=== PATIENT | female | born 1940 | race Caucasian/White ===

== ENCOUNTER 2021-02-25 08:56 | Outpatient (CLI) | payer MEDICARE, OTHER, SELFPAY ==
--- NOTE | ~2021-02-25 | MR_ITS ---
EXAMINATION: MR foot LT wo con DATE: 02/25/2021 10:17 INDICATION: Osteomyelitis of left great toe. TECHNIQUE: Magnetic resonance imaging (MRI) of the left foot was performed without intravenous contra st. Sequences included long axis, short axis, and sagittal T2-weighted FS FSE and T1-weighted FSE. COMPARISON: Left foot radiographs 02/12/2017 FINDINGS: There is mild hallux valgus. No fracture. There is bone marrow edema involving the distal h kana of first distal phalanx, consistent with osteomyelitis. There is an overlying soft tissue defect. There is moderate osteoarthritis of first metatarsophalangeal joint and mild osteoarthritis of some the interphalangeal joints and midfoot joints. There is diffuse severe fatty atrophy of the musculatu re. The tendons are unremarkable. Lisfranc ligament is normal. IMPRESSION: 1. Osteomyelitis involving the distal half of first distal phalanx. Reviewed, dictated and finalized at location A.
== END 2021-02-25 08:57 | disposition home or self-care (01) ==
LOC: ANHIMG 09:06
PROVIDERS: Visit Provider Podiatrist Foot & Ankle Surgery
DX: M86.172 Other acute osteomyelitis, left ankle and foot (principal)
CPT/HCPCS: 73718

== ENCOUNTER 2021-04-02 08:12 | Outpatient (RCR) | payer MEDICARE, OTHER, SELFPAY ==
[2021-04-02 09:34] VITALS: BMI 29.5
== END 2021-06-22 17:09 | disposition home or self-care (01) ==
LOC: ANHWOC 08:12
PROVIDERS: Visit Provider Podiatrist Foot & Ankle Surgery
DX: E11.621 Type 2 diabetes mellitus with foot ulcer (principal); L97.529 Non-pressure chronic ulcer of other part of left foot with unspecified severity; L97.518 Non-pressure chronic ulcer of other part of right foot with other specified severity
CPT/HCPCS: 99213; G0463

== ENCOUNTER 2021-04-23 18:37 | Inpatient (IN) | payer MEDICARE, OTHER, SELFPAY ==
[2021-04-23] VITALS (20 sets, daily range): BP systolic 111–135; BP diastolic 44–56; PULSE 61–92; RESP 14–33; TEMP 37.4; O2SAT 91–96
--- NOTE | ~2021-04-23 | CT_ITS ---
EXAMINATION: CTA chest PE protocol DATE: 04/23/2021 22:19 INDICATION: Shortness of breath. Chest pain. TECHNIQUE: Computed tomography angiography (CTA) of the chest was performed with 100 mL Omnipaque-350 intravenous contrast timed to evaluate the pulmonary arteries. Coronal maximum intensity projection 3D-reconstructions were created by the technologist. Automated exposure control and iterative reconst ruction technique were employed. The dose-length product was 376.95 mGy-cm. COMPARISON: Chest single view 04/23/2021 FINDINGS: There is moderate emphysema. There are airspace and groundglass opacities in all lobes with a peripheral predominance. No pleural effusion. Cardiomegaly is noted. There are coronary artery adria cifications. No pericardial effusion. There is no pulmonary embolus. There is a small sliding hiatal hernia. There is a 6 mm stone in left kidney. There is severe thoracic and lumbar spondylosis. IMPRESSION: 1. No pulmonary embolus. Sensitivity is moderately decreased by motion artifact. 2. Diffuse lung disease, consistent with COVID-19 pneumonia. 3. Moderate emphysema. Reviewed, dictated and finalized at location A. IMPRESSION: 1. No pulmonary embolus. Sensitivity is moderately decreased by motion artifact . 2. Diffuse lung disease, consistent with COVID-19 pneumonia. 3. Moderate emphysema.
--- NOTE | ~2021-04-23 | XR_ITS ---
XR chest 1V portable 05/03/2021 13:03 Indication: Dyspnea Procedure: AP portable chest Comparison: Comparison to multiple prior studies sequentially, with oldest reviewed study dated 09/2020. Findings: There is extensive consolidation peripherally in both lungs which is slightly increased com pared with prior studies, consistent with pneumonia. Heart size normal. No pleural effusion or pneumo thorax. No acute osseous abnormality. There is advanced osteoarthritis of the left glenohumeral joint . Impression: 1: Progression of extensive bilateral airspace disease, compatible with pneumonia. Reviewed, dictated and finalized at location A. Impression: 1: Progression of extensive bilateral airspace disease, compatible with pneumon ia.
--- NOTE | ~2021-04-23 | XR_ITS ---
EXAMINATION: XR chest 1V portable DATE: 04/28/2021 05:47 INDICATION: COVID-19 pneumonia. TECHNIQUE: A single frontal view of the chest was obtained. COMPARISON: Chest 1 view 04/25/2021, chest CT 04/23/2021 FINDINGS: There are lucencies in the lungs, consistent with emphysema. There are mild airspace opacit ies in all lung zones bilaterally with a peripheral predominance. No pleural effusion or pneumothorax . The heart size is normal. IMPRESSION: 1. Stable diffuse lung disease, consistent with COVID-19 pneumonia. 2. Emphysema. Reviewed, dictated and finalized at location A.
--- NOTE | ~2021-04-23 | CT_ITS ---
EXAMINATION: CT brain wo con EXAM DATE: 04/29/2021 10:33 INDICATION: Altered mental status . COVID. Elevated d-dimer. TECHNIQUE: Spiral CT of the head was performed without contrast. Axial, coronal and sagittal images were reviewed. The dose-length product (DLP) for this examination was 1210.67 mGy-cm. The exposure was tailored according to patient size, and iterative reconstruction (ASIR) was used as additional do se reduction technique. There is no prior study for comparison. FINDINGS: Study is limited due to patient motion. Patient was scanned twice. There is no acute intrap arenchymal hemorrhage. No evidence of intraparenchymal brain mass lesion. No evidence of acute infa rction. Please note that initial head CT has limited sensitivity for small or acute infarctions. The re is moderate periventricular and subcortical hypodensity, nonspecific but probably related to small vessel ischemic disease. There is moderate prominence of the sulci and ventricles related to cereb ral atrophy. There is intracranial carotid arteriosclerosis. There are no extra-axial collections. There is no mass effect or midline shift. The orbits are unremarkable. Soft tissue is unremarkabl e. The visualized sinuses and mastoid air cells are well aerated. IMPRESSION: 1. No acute intracranial findings. 2. Chronic age related findings. Reviewed, dictated and finalized at location A.
--- NOTE | ~2021-04-23 | XR_ITS ---
EXAMINATION: XR chest 1V portable DATE: 04/23/2021 20:12 INDICATION: Shortness of breath. COVID-19 pneumonia. TECHNIQUE: A single frontal view of the chest was obtained. COMPARISON: None. FINDINGS: There are patchy airspace opacities in the right mid and lower lung zones and all left lung zones. No pleural effusion or pneumothorax. The heart size is normal. IMPRESSION: 1. Diffuse lung disease, consistent with COVID-19 pneumonia. Reviewed, dictated and finalized at location A.
--- NOTE | ~2021-04-23 | XR_ITS ---
EXAMINATION: XR chest 1V portable DATE: 04/25/2021 05:14 INDICATION: COVID TECHNIQUE: frontal view of the chest was obtained. COMPARISON: Chest radiograph and CT dated 04/23/2021 FINDINGS: No significant change in mild peripheral predominant opacities in the bilateral mid and lower lung zo herb consistent with COVID pneumonia. Bullous changes at the lateral left midlung zone consistent with emphysema better appreciated on prior CT. No pneumothorax or pleural effusion. The cardiomediastinal silhouette is normal. Severe left glenohumeral osteoarthritis with a few round lucencies at the grea ter tuberosity suggesting suture anchors for prior rotator cuff repair. IMPRESSION: 1. No significant interval change in mild opacities in the bilateral mid and lower lung zones consist ent with COVID pneumonia. 2. Emphysema. Reviewed, dictated and finalized at location A. IMPRESSION: 1. No significant interval change in mild opacities in the bilateral mid and lo wer lung zones consistent with COVID pneumonia. 2. Emphysema.
--- NOTE | ~2021-04-23 | CT_ITS ---
EXAMINATION: CTA chest PE abdomen pel DATE: 04/29/2021 10:41 INDICATION: Hypoxia, acute kidney injury TECHNIQUE: Computed tomography angiography (CTA) of the chest was performed with 100 mL Omnipaque-350 intravenous contrast timed to evaluate the pulmonary arteries. Subsequent postcontrast images of the abdomen and pelvis are obtained. Coronal maximum intensity projection 3D-reconstructions were create d by the technologist. The dose-length product (DLP) was 1167.34 mGy-cm. Automated exposure control a nd iterative reconstruction technique were employed. COMPARISON: 04/23/2021 FINDINGS: CTA CHEST: The pulmonary arteries are well-opacified. Respiratory motion artifact somewhat limits swati luation of the pulmonary arteries. No pulmonary embolus is identified. There is moderate emphysema. G roundglass and airspace opacities with peripheral predominance persist in all lung zones with slight worsening. Cardiomegaly is noted. There is no pleural effusion or pneumothorax. There are no patholog ically enlarged thoracic lymph nodes. There is severe thoracic spondylosis. There is a possible mass of the slightly inner right breast near the nipple ABDOMEN/PELVIS CT: The liver, spleen, pancreas, and right adrenal gland are normal. There is mild thi ckening of the left adrenal gland which maintains its adreniform shape. The gallbladder is surgically absent. Nonobstructing stones of the left kidney measure up to 8 mm. There is a 1.6 cm cyst of the r ight kidney. There is calcified atherosclerosis of the aorta and many of the other arteries. The blad emile is decompressed by Alcocer catheter. No pathologically enlarged abdominal or pelvic lymph nodes are identified. There is severe lumbar spondylosis. IMPRESSION: 1. No pulmonary embolus identified, sensitivity limited by respiratory motion artifact. 2. Diffuse lung disease with slight worsening, consistent with COVID 19 pneumonia. 3. Moderate emphysema. 4. Possible right breast mass. If the patient is in otherwise good health, would recommend diagnostic mammogram with possible ultrasound as an outpatient. Reviewed, dictated and finalized at location B. IMPRESSION: 1. No pulmonary embolus identified, sensitivity limited by respiratory motion a rtifact. 2. Diffuse lung disease with slight worsening, consistent with COVID 19 pneumon ia. 3. Moderate emphysema. 4. Possible right breast mass. If the patient is in otherwise good health, indy [place] recommend diagnostic mammogram with possible ultrasound as an outpatient.
--- NOTE | 2021-04-23 19:19 | ECG_ITS ---
Measurements Intervals [place] Rate: 70 P: 63 WI: 192 QRS: 68 QRSD: 92 T: 52 QT: 302 QTc: 327 Interpretive Statements SINUS RHYTHM BASELINE ARTIFACT- I, II, III, AVR, AVL, AVF, V1-V6 NORMAL ECG Electronically Signed On 04-24-2021 7:31:27 CDT by Joe Murdock D.O.
[2021-04-23 20:03] LABS: Alveolar/Arterial O2 Gradient 250.5 mmHg; Base Excess ABG 0.9 mEq/l (+/-2.0); Carboxyhemoglobin 0.1 % THb (0-2.0); Fractional Inspired Oxygen 50 %; HCO3 ABG 23.9 mEq/l (22.0-26.0); Methemoglobin ABG 0.2 %THb (0-1.5); Oxygen Content ABG 12.2 %vol (16.0-22.0); Oxygen Saturation ABG 95.5 % (95.0-100.0); PCO2 ABG 31.7 mmHg (35.0-45.0); PO2 ABG 70.3 mmHg (80.0-100.0); PO2 FiO2 Ratio Arterial Blood 1.41 %; Reduced Hemoglobin 6.7 %THb (0-5.0); Total Hemoglobin 9.3 g/dL (12.0-18.0); pH ABG 7.495 (7.350-7.450)
[2021-04-23 20:04] LABS: Device NASAL CANNULA; Modified Allen's Test Pass; Site Drawn RIGHT RADIAL
--- NOTE | 2021-04-23 20:10 | ED.SOB ---
HPI - SOB/Dyspnea General Chief Complaint: Shortness of Breath/Dyspnea <Ynes Montes MD - Last Filed: 04/23/21 21:42> Stated Complaint: sob, weakness <Ynes Montes MD - Last Filed: 04/23/21 21:42> Time Seen by Provider: 04/23/21 19:04 <Ynes Montes MD - Last Filed: 04/23/21 21:42> Source: patient <Ynes Montes MD - Last Filed: 04/23/21 21:42> Mode of arrival: EMS <Ynes Montes MD - Last Filed: 04/23/21 21:42> Limitations: no limitations <Ynes Montes MD - Last Filed: 04/23/21 21:42> History of Present Illness HPI Narrative: This is an 80 year old female with history of hypertension and diabetes mellitus who presents for evaluation of shortness of breath and weakness. Patient states she has been weak for 2 weeks. EMS found patient today with oxygen saturation of 74% on room and she is 91-94 % on 6L NC. She denies previous oxygen dependence. She denies chest pain , nausea, vomiting or fever. It is reported that one of patient's family member's is COVID positive. Patient is unsure when they were found to be positive. She states she has covid but it does not seem that she has every been tested. <Ynes Montes MD - Last Filed: 04/23/21 21:42> Related Data Home Medications: Home Medications Medication Instructions Recorded Confirmed amlodipine 10 mg PO DAILY 04/02/21 04/02/21 anastrozole 1 mg PO DAILY 04/02/21 04/02/21 ascorbic acid (vitamin C) 500 mg PO BID 04/02/21 04/02/21 aspirin [Adult Low Dose Aspirin] 81 mg PO DAILY 04/02/21 04/02/21 berberine-herbal comb no.18 cap PO 04/02/21 biotin mcg PO 04/02/21 calcium carbonate-vit D3-min 1 tablet PO BID 04/02/21 04/02/21 [Calcium-Vitamin D] chlorthalidone 25 mg PO DAILY 04/02/21 04/02/21 cinnamon bark [Cinnamon] 500 mg PO DAILY 04/02/21 04/02/21 citalopram 20 mg PO DAILY 04/02/21 04/02/21 coQ10 (ubiquinol) 200 mg PO DAILY 04/02/21 04/02/21 dulaglutide [Trulicity] 3 mg SUBCUT WEEKLY 04/02/21 04/02/21 ferrous sulfate 325 mg PO DAILY 04/02/21 04/02/21 furosemide 20 mg PO DAILY 04/02/21 04/02/21 garlic [Garlique] 5 mg PO DAILY 04/02/21 04/02/21 sahuqmib-ddyl-zkkqup-hyalur ac tablet PO 04/02/21 icosapent ethyl [Vascepa] 2 g PO BID 04/02/21 04/02/21 insulin glargine [Lantus U-100 40 unit SUBCUT DAILY 04/02/21 04/02/21 Insulin] levothyroxine 112 mcg PO DAILY 04/02/21 04/02/21 lisinopril 20 mg PO BID 04/02/21 04/02/21 lutein 20 mg PO DAILY 04/02/21 04/02/21 metformin 500 mg PO BID 04/02/21 04/02/21 rrzwinfblcxq-iayyjktr-rnletk 1 tablet PO DAILY 04/02/21 04/02/21 [Centrum Silver] mupirocin 1 applic TOPICAL BID 04/02/21 04/02/21 nebivolol [Bystolic] 20 mg PO DAILY 04/02/21 04/02/21 potassium bicarb-citric acid 10 meq PO DAILY 04/02/21 04/02/21 rosuvastatin 20 mg PO DAILY 04/02/21 04/02/21 vitamin B complex [B 1 tablet PO DAILY 04/02/21 04/02/21 Complex-Vitamin B12] <Ynes Montes MD - Last Filed: 04/23/21 21:42> Allergies/Adverse Reactions: Allergies Allergy/AdvReac Type Severity Reaction Status Date / Time Penicillins Allergy Unknown Verified 06/25/20 13:32 Sulfa (Sulfonamide Allergy Unknown Verified 06/25/20 13:32 Antibiotics) <Ynes Montes MD - Last Filed: 04/23/21 21:42> Review of Systems Review of Systems: All systems reviewed & are unremarkable except as noted in HPI and below <Ynes Montes MD - Last Filed: 04/23/21 21:42> [facility] Past Medical History Medical History: Medical History (Updated 04/23/21 @ 22:53 by Roel Patel MD) Diabetes mellitus Hypertension Hypothyroid <Ynes Montes MD - Last Filed: 04/23/21 21:42> Surgical History Surgical History: Surgical History (Updated 04/23/21 @ 20:18 by Ynes Montes MD) H/O skin graft <Ynes Montes MD - Last Filed: 04/23/21 21:42> Social History Social History: Social History (Updated 04/23/21 @ 20:18 by Ynes Montes MD) Smoking status:
[2021-04-23 20:13] LABS: Hematocrit 24.8 % (37.0-47.0); Hemoglobin 8.5 g/dL (12.0-15.0); Immature Granulocyte Absolute 0.02 K/mm3 (0.00-0.031); Immature Granulocyte Percent A 0.7 % (0-0.5); Lymphocytes Absolute Auto 0.53 K/mm3 (0.9-3.2); Lymphocytes Percent Auto 19.9 % (18.3-44.2); Mean Corpuscular HGB Conc 34.3 g/dl (32-36); Mean Corpuscular Hemoglobin 30.6 pg (26-34); Mean Corpuscular Volume 89.2 fl (80-100); Mean Platelet Volume 11.4 fl (7.4-10.4); Monocytes Absolute Auto 0.5 K/mm3 (0.1-0.6); Monocytes Percent Auto 16.9 % (2.6-8.5); Neutrophils Absolute Auto 1.7 K/mm3 (1.3-6.7); Neutrophils Percent Auto 62.5 % (45.5-73.1); Platelet Count Result 111 k/mm3 (150-375); Red Blood Count 2.78 M/mm3 (4.2-5.4); Red Cell Distribution Width 13.5 % (11.5-14.5); White Blood Count 2.7 K/mm3 (4.5-10.0)
[2021-04-23 20:23] LABS: Partial Thromboplastin Time 29.6 SECONDS (22.3-36.8)
[2021-04-23 20:26] LABS: D Dimer 1.57 ug/mL (<0.48)
[2021-04-23 20:29] LABS: Magnesium 1.8 mg/dL (1.6-2.3)
[2021-04-23 20:30] LABS: EDCOVIDSCREEN Positive (Negative)
[2021-04-23 20:31] LABS: Lactic Acid Reflex 1.5 mmol/L (0.7-2.1)
[2021-04-23 20:32] LABS: Alanine Aminotransferase 33 U/L (4-35); Albumin Level 3.8 g/dL (3.5-5.1); Alkaline Phosphatase 38 U/L (38-126); Anion Gap 11 mmol/L (8-16); Aspartate Amino Transferase 89 U/L (14-36); Bilirubin,Total 0.6 mg/dL (0.2-1.3); Blood Urea Nitrogen 57 mg/dL (7-17); CRP 3.8 mg/dL (<1.0); Calcium 10.2 mg/dL (8.4-10.2); Carbon Dioxide 22 mmol/L (22-30); Chloride 91 mmol/L (98-107); Estimated CRCL calculation 30 ml/min; Estimated Glomerular Filt Rate 39; Glucose 279 mg/dL (65-110); Lactate Dehydrogenase 1075 U/L (313-618); Potassium 3.6 mmol/L (3.4-5.0); Sodium 124 mmol/L (137-145)
[2021-04-23 20:41] LABS: NT Pro B Type Natriuretic Pept 1360 pg/mL (5-100)
[2021-04-23 20:47] LABS: Add Urine Microscopic? YES; Appearance Urine Clear (Clear); Bilirubin Urine Negative (Negative); Blood Urine 1+ (Negative); Color Urine Yellow (Yellow); Glucose Urine UA Negative (Negative); Ketones Urine Negative (Negative); Leukocyte Esterase Ur Negative LEU/UL (Negative); Mucus Urine Rare /lpf; Nitrate Urine Negative (Negative); Protein Urine 2+ mg/dL (Negative); RBC Urine 0-2 /hpf (0-2); Squamous Epithelial Cell Urine Rare /hpf (Few); Urobilinogen Urine Negative mg/dL (<2.0); WBC Urine 0-3 /hpf
[2021-04-23] MEDS: SODIUM CHLORIDE 0.9% IV 1,000 ML 999 ML IV CONT (21:44)
[2021-04-23] MEDS: DEXAMETHASONE SOD PHOS INJ 4 MG/ML VIAL 10 MG IV PUSH (21:44)
[2021-04-23] MEDS: REMDESIVIR 200 MG/NS 250 ML 200 MG/250 ML BAG 250 MG IVPB (21:44)
--- NOTE | 2021-04-23 22:39 | PC.NURSE ---
updated pt. kimberly Murillo at [phone]
[2021-04-24] VITALS (40 sets, daily range): BP systolic 111–137; BP diastolic 44–75; PULSE 62–89; RESP 14–28; TEMP 35.9–37.2; O2SAT 88–97; BMI 28.0
--- NOTE | 2021-04-24 00:52 | ADMIMU ---
This patient, Sara King, was admitted to IMU status, and placed in IMU Room 200-01. Patient/family oriented to hospital policies and general routines including ID bracelet, bed and alarms, visiting hours, pain management, procedures, bathroom and other care routines, personal items, smoking policy, room service/diet, and visiting hours. Valuables list has been completed. Information on how to activate the Rapid Response Team has been discussed. Patient/Family are encouraged to report perceived risks to care and to ask questions if they do not understand what they are told or what they should do.
[2021-04-24] MEDS: SODIUM CHLORIDE 0.9% IV 1,000 ML 125 ML IV CONT (01:08)
--- NOTE | 2021-04-24 03:21 | PM.IMHP ---
H&P: HPI History of Present Illness Date/Time: 04/24/21 03:21 Chief Complaint: Shortness of breath Narrative: This is an 80-year-old female with past medical history significant for hypertension, breast cancer, I have deficiency anemia, type 2 diabetes mellitus, degenerative joint disease. Patient was brought to the emergency room via EMS due to shortness of breath generalized weakness fatigue she was found to be saturating on room air at 74% was placed on oxygen and brought to our emergency room here patient was placed on 6 L upon arrival. At the time of my visit patient had numerous complaints of shortness of breath cough, sputum production ,generalized malaise, body aches and pains, poor appetite, fevers, chills, rigors, some nausea but no vomiting and some diarrhea as well. Preliminary workup was significant for CT of chest negative for acute pulmonary embolism but diffuse pulmonary infiltrates and bullous disease of the lung chest x-ray with diffuse infiltrates as well. Patient tested positive for COVID-19. Review of Systems Review of Systems: Shortness of breath cough sputum production poor appetite general malaise body aches and pains fevers chills rigors Constitutional: Constitutional: Reports chills, Reports fatigue, Reports fever(s), Reports malaise, Reports poor appetite and Reports weakness Eyes: Eyes: Denies change in vision ENT: Denies dysphagia, Denies nasal congestion, Denies nasal discharge, Denies nasal obstruction and Denies odynophagia Cardiovascular: Cardiovascular: Denies chest pain, Denies irregular heart rhythm, Denies claudication, Denies radiating jaw, neck or arm pain, Denies palpitations and Denies dyspnea on exertion Respiratory: Respiratory: Reports cough Gastrointestinal: Gastrointestinal: Denies abdominal pain, Reports diarrhea, Reports nausea and Denies vomiting Genitourinary: Genitourinary: Reports no additional female genitourinary complaints Musculoskeletal: Musculoskeletal: Reports myalgias Integumentary/Breasts: Skin/Breast: Reports system reviewed and no additional complaints, except as docu Neurologic: Reports system reviewed and no additional complaints, except as documented Psychiatric: Psychiatric: Reports no additional psychiatric complaints Endocrine: Endocrine: Reports no additional endocrine complaints Hematologic/Lymphatic: Hematologic/Lymphatic: Reports no additional hematologic/lymphatic complaints Allergic/Immunologic: Allergic/Immunologic: Reports no additional allergic/immunologic complaints [facility] Past Medical History Medical History (Updated 04/24/21 @ 03:39 by Jeanna Horn MD) Diabetes mellitus Hypertension Hypothyroid Surgical History Surgical History (Updated 04/23/21 @ 20:18 by Ynes Montes MD) H/O skin graft Social History Social History (Updated 04/23/21 @ 20:18 by Ynes Montes MD) Smoking packs per day: 1 Smoking cigarettes per day: 20.0 Smoking status: Former smoker Tobacco type: cigarettes Second hand tobacco smoke exposure: No Smoking end date: 05/06/88 Alcohol intake: never Substance use: never Gender identity (if verbalized by the patient): Female Spiritual care concerns: No Meds Home Medications and Allergies Home Medications Medication Instructions Recorded Confirmed Type amlodipine 10 mg PO DAILY 04/02/21 04/24/21 History anastrozole 1 mg PO DAILY 04/02/21 04/24/21 History ascorbic acid (vitamin C) 1,000 mg PO BID 04/02/21 04/24/21 History aspirin [Adult Low Dose Aspirin] 81 mg PO DAILY 04/02/21 04/24/21 History biotin 10,000 mcg PO DAILY 04/02/21 04/24/21 History calcium carbonate-vit D3-min 1 tablet PO BID 04/02/21 04/24/21 History [Calcium-Vitamin D] chlorthalidone 25 mg PO DAILY 04/02/21 04/24/21 History cinnamon bark [Cinnamon] 500 mg PO DAILY 04/02/21 04/24/21 History citalopram 20 mg PO DAILY 04/02/21 04/24/21 History coQ10 (ubiquinol) 200 mg PO DAILY 04/02/21 04/24/21 History ferrous
[2021-04-24] MEDS: ALBUTEROL SULFATE NEB 2.5 MG/0.5 ML INH INHALATION ×5 (04:35→20:23)
[2021-04-24 05:19] LABS: Prothrombin Time 12.9 Seconds (11.1-14.7)
[2021-04-24 05:23] LABS: Alanine Aminotransferase 32 U/L (4-35); Estimated CRCL calculation 34 ml/min; Estimated Glomerular Filt Rate 43
[2021-04-24] MEDS: LEVOTHYROXINE SODIUM 112 MCG TABLET PO (06:19)
[2021-04-24] MEDS: ANASTROZOLE (*CHEMO) 1 MG TABLET PO (08:47)
[2021-04-24] MEDS: amLODIPine BESYLATE 5 MG TABLET 10 MG PO (08:47)
[2021-04-24] MEDS: NEBIVOLOL HCL 5 MG TABLET 40 MG PO (08:48)
[2021-04-24] MEDS: ASCORBIC ACID 500 MG TABLET 1000 MG PO ×2 (08:49→17:50)
[2021-04-24] MEDS: INSULIN GLARGINE (*BKC) 100 UNITS/ML 40 UNITS SUB-Q (08:49)
[2021-04-24] MEDS: FERROUS SULFATE 324 MG TABLET PO ×2 (08:49→17:50)
[2021-04-24] MEDS: CITALOPRAM HYDROBROMIDE 20 MG TABLET PO (08:49)
[2021-04-24] MEDS: INSULIN ASPART (*BKC) 100 UNITS/ML SUB-Q ×2 (09:20→17:50)
[2021-04-24 10:15] LABS: Anion Gap 15 mmol/L (8-16); Blood Urea Nitrogen 50 mg/dL (7-17); Calcium 9.6 mg/dL (8.4-10.2); Carbon Dioxide 20 mmol/L (22-30); Chloride 96 mmol/L (98-107); Estimated CRCL calculation 34 ml/min; Estimated Glomerular Filt Rate 43; Glucose 473 mg/dL (65-110); Potassium 3.9 mmol/L (3.4-5.0); Sodium 131 mmol/L (137-145)
[2021-04-24 11:04] LABS: Hemoglobin A1C 6.6 % (<5.7)
[2021-04-24] MEDS: ENOXAPARIN 40 MG/0.4 ML SYRINGE SUB-Q (13:08)
[2021-04-24] MEDS: INSULIN ASPART (*BKC) 100 UNITS/ML 12 UNITS SUB-Q (13:09)
[2021-04-24 14:44] LABS: Glucose Point of Care 399 mg/dl (65-105)
[2021-04-24 14:44] LABS: Glucose Point of Care 424 mg/dl (65-105)
[2021-04-24 15:15] LABS: Glucose Point of Care 346 mg/dl (65-105)
[2021-04-24 15:47] LABS: Sodium 129 mmol/L (137-145)
--- NOTE | 2021-04-24 15:56 | PC.NURSE ---
Spoke with patient's son, Chidi, concerning code status per patient and 's request. Chidi stated that patient does not want to be intubated and to make her a DNR.
--- NOTE | 2021-04-24 16:23 | PC.NURSE ---
Patient's son and called back and stated to make patient a full code.
[2021-04-24] MEDS: INSULIN ASPART (*BKC) 100 UNITS/ML 6 UNITS SUB-Q (17:50)
[2021-04-24 17:51] LABS: Glucose Point of Care 295 mg/dl (65-105)
--- NOTE | 2021-04-24 18:01 | PM.IMPN ---
Progress Note: A&P Assessment and Plan (1) Pneumonia due to COVID-19 virus: Code(s): U07.1 - COVID-19; J12.82 - Pneumonia due to coronavirus disease 2019 Status: Acute Assessment and Plan: Continue remdesivir, decadron and lovenox -ceftriaxone and azithromycin has been started by previous provider and will be continued due to severity although bacterial infection appears less likely -pt received plasma 04/24/21 -She is a full code at this time. -spoke with family about plan of care (2) Acute respiratory failure with hypoxia: Code(s): J96.01 - Acute respiratory failure with hypoxia Status: Acute Assessment and Plan: Continue supplemental o2 (3) Emphysema/COPD: Code(s): J43.9 - Emphysema, unspecified Status: Acute Assessment and Plan: continue tx as above (4) Type 2 diabetes mellitus: Code(s): E11.9 - Type 2 diabetes mellitus without complications Status: Acute Assessment and Plan: Last glucose 295 -pts a1c 6.6, good control at home with her home regimen -likely worse due to acute illness and steroids -quick acting insulin ordered with meals with SSI -may need to increase lantus if she continues to be high. For now, continue home dose - continue accuchecks ACHS (5) Hypertension: Code(s): I10 - Essential (primary) hypertension Status: Acute Assessment and Plan: Last bp 124/75 -continue norvasc and bystolic (6) ALCIRA (acute kidney injury): Code(s): N17.9 - Acute kidney failure, unspecified Status: Acute Assessment and Plan: Slightly elevated, unknown baseline -hold lisinopril and Lasix -repeat labs in the AM (7) Hyponatremia: Code(s): E87.1 - Hypo-osmolality and hyponatremia Status: Acute Assessment and Plan: last sodium 129 -initially pt's sodium increased too fast but is now back down to 129 and was 124 on admission -IV fluids have been stopped due to COVID -falsely low due to hyperglycemia -will monitor -no neurological deficits Time Spent With Patient Time with patient: 25 - 35 minutes Subjective Date/time seen: 04/24/21 18:01 Interval history: Pt is a 80 y/o female here for COVID. Pt staets she feels like she got hit by a bus and does not feel well. She feels short of breath and very achy but has no CP. She states she did not get vaccinated because she didn't believe in the vaccine. She understands the severity of her disease and told me she wouldn't want to be resuscitated if she were to worsen. I asked if her family knew this and she said she thought they did but that I could call her . We spoke to her , conrado, on the phone who expressed concern and told the pt he didn't want her to be a DNR. Pt is able to make her own decisions but wanted their son to make this decision. RN states she called the son and asked him his thoughts and he agreed with DNR. Once the son spoke to the , the called up to the hospital requesting her be a full code again. Although pt can make her own decisions, she is not wanting to make this decision at this time and said to go with whatever her son and want. For now, they want her to be a full code. RN aware. Review of Systems Review of Systems: All systems reviewed & are unremarkable except as noted in HPI and below Exam Narrative: General: Well developed well nourished patient in NAD with o2 applied HEENT: normocephalic Neck: supple Neuro: Alert and oriented x4 CV:RRR Resp:crackles at the bases, no wheezing Abd: Soft, non distended. No pain to palpation. Positive bowel sounds Extremities: No swelling, erythema, or pain to palpation. Objective Data Vital Signs Vital Signs: Vital Signs - 24 hr 04/23/21 18:38 04/23/21 18:43 04/23/21 18:45 Temperature 99.4 F Pulse Rate 92 71 71 Respiratory Rate 28 H 24 H 14 Blood Pressure 135/53 L 135/53 L Pulse Oximetry 91 93
[2021-04-24 20:51] LABS: Glucose Point of Care 238 mg/dl (65-105)
[2021-04-24] MEDS: REMDESIVIR 100 MG/NS 250 ML 100 MG/250 ML BAG 250 MG IVPB (21:38)
[2021-04-25] VITALS (31 sets, daily range): BP systolic 112–141; BP diastolic 35–74; PULSE 62–77; RESP 16–26; TEMP 36.4–37.1; O2SAT 90–99
[2021-04-25] MEDS: ALBUTEROL SULFATE NEB 2.5 MG/0.5 ML INH INHALATION ×3 (01:00→08:02)
[2021-04-25 06:03] LABS: Hematocrit 25.2 % (37.0-47.0); Hemoglobin 8.4 g/dL (12.0-15.0); Mean Corpuscular HGB Conc 33.3 g/dl (32-36); Mean Corpuscular Hemoglobin 30.2 pg (26-34); Mean Corpuscular Volume 90.6 fl (80-100); Mean Platelet Volume 10.9 fl (7.4-10.4); Platelet Count Result 147 k/mm3 (150-375); Red Blood Count 2.78 M/mm3 (4.2-5.4); Red Cell Distribution Width 13.5 % (11.5-14.5); White Blood Count 4.8 K/mm3 (4.5-10.0)
[2021-04-25 06:10] LABS: Prothrombin Time 13.5 Seconds (11.1-14.7)
[2021-04-25 06:12] LABS: Alanine Aminotransferase 34 U/L (4-35); Albumin Level 3.8 g/dL (3.5-5.1); Alkaline Phosphatase 45 U/L (38-126); Anion Gap 11 mmol/L (8-16); Aspartate Amino Transferase 75 U/L (14-36); Bilirubin,Total 0.4 mg/dL (0.2-1.3); Blood Urea Nitrogen 44 mg/dL (7-17); CRP 3.5 mg/dL (<1.0); Calcium 11.3 mg/dL (8.4-10.2); Carbon Dioxide 24 mmol/L (22-30); Chloride 97 mmol/L (98-107); Estimated CRCL calculation 40 ml/min; Estimated Glomerular Filt Rate 53; Glucose 310 mg/dL (65-110); Lactate Dehydrogenase 1003 U/L (313-618); Magnesium 1.9 mg/dL (1.6-2.3); Potassium 3.2 mmol/L (3.4-5.0); Sodium 132 mmol/L (137-145)
[2021-04-25 06:13] LABS: D Dimer 1.47 ug/mL (<0.48)
[2021-04-25] MEDS: LEVOTHYROXINE SODIUM 112 MCG TABLET PO (06:34)
[2021-04-25 08:00] LABS: Glucose Point of Care 402 mg/dl (65-105)
[2021-04-25] MEDS: NEBIVOLOL HCL 5 MG TABLET 40 MG PO (08:56)
[2021-04-25] MEDS: INSULIN GLARGINE (*BKC) 100 UNITS/ML 48 UNITS SUB-Q (08:57)
[2021-04-25] MEDS: ENOXAPARIN 40 MG/0.4 ML SYRINGE SUB-Q (08:57)
[2021-04-25] MEDS: ASCORBIC ACID 500 MG TABLET 1000 MG PO (08:57)
[2021-04-25] MEDS: CITALOPRAM HYDROBROMIDE 20 MG TABLET PO (08:57)
[2021-04-25] MEDS: FERROUS SULFATE 324 MG TABLET PO (08:58)
[2021-04-25] MEDS: POTASSIUM CHLORIDE 20 MEQ TABLET 40 MEQ PO (08:58)
[2021-04-25] MEDS: ANASTROZOLE (*CHEMO) 1 MG TABLET PO (08:58)
[2021-04-25] MEDS: amLODIPine BESYLATE 5 MG TABLET 10 MG PO (08:58)
[2021-04-25] MEDS: INSULIN ASPART (*BKC) 100 UNITS/ML 12 UNITS SUB-Q (08:59)
[2021-04-25 11:59] LABS: Glucose Point of Care 316 mg/dl (65-105)
--- NOTE | 2021-04-25 12:04 | PM.IMPN ---
Progress Note: A&P Assessment and Plan (1) Pneumonia due to COVID-19 virus: Code(s): U07.1 - COVID-19; J12.82 - Pneumonia due to coronavirus disease 2019 Status: Acute Assessment and Plan: Continue remdesivir, decadron and lovenox -ceftriaxone and azithromycin has been started by previous provider and will be continued due to severity although bacterial infection appears less likely -due to the patient's severity, baricitinib has been discussed and patient would like to proceed with this. She understands this experimental and can cause bacterial infections but does understand that it could also help her as she is requiring increasingly more oxygen and is getting weaker. -pt received plasma 04/24/21 -She is a full code at this time. -spoke with family about plan of care 04/24/21 (2) Acute respiratory failure with hypoxia: Code(s): J96.01 - Acute respiratory failure with hypoxia Status: Acute Assessment and Plan: Continue supplemental o2 (3) Emphysema/COPD: Code(s): J43.9 - Emphysema, unspecified Status: Acute Assessment and Plan: continue tx as above (4) Type 2 diabetes mellitus: Code(s): E11.9 - Type 2 diabetes mellitus without complications Status: Acute Assessment and Plan: Last glucose 316 -pts a1c 6.6, good control at home with her home regimen -likely worse due to acute illness and steroids -increase basal insulin to 50 units and increase mealtime insulin to 10 units. Continue sliding scale insulin as well but lower this since her mealtime insulin has been increased. - continue accuchecks ACHS -this will need to be discontinued when the steroids are finished as the patient does not usually require this amount of insulin (5) Hypertension: Code(s): I10 - Essential (primary) hypertension Status: Acute Assessment and Plan: Last bp 138/59 -continue norvasc and bystolic (6) ALCIRA (acute kidney injury): Code(s): N17.9 - Acute kidney failure, unspecified Status: Acute Assessment and Plan: Normalized -continue to monitor (7) Hyponatremia: Code(s): E87.1 - Hypo-osmolality and hyponatremia Status: Acute Assessment and Plan: last sodium 132, falsely low due to hyperglycemia -will monitor -no neurological deficits Subjective Date/time seen: 04/25/21 12:04 Interval history: Pt is a 80 y/o female here for COVID. Patient was seen today and feels lousy. She says she feels short of breath and cannot move without becoming increasingly short of breath. She has not gotten out of bed. She continues to have a slight cough and muscle aches. We had a long discussion about the severity of her illness and discussed the different treatment options. I did talked her about baricitinib and the risk versus benefits of this. She would like to go forward with this treatment. She denies chest pain, nausea, vomiting fevers or chills. She has no appetite and has not been eating. Exam Narrative: General: Well developed well nourished patient in NAD with high flow o2 applied HEENT: normocephalic Neck: supple Neuro: Alert and oriented x4 CV:RRR Resp:crackles at the bases, no wheezing Abd: Soft, non distended. No pain to palpation. Positive bowel sounds Extremities: No swelling, erythema, or pain to palpation. Objective Data Vital Signs Vital Signs: Vital Signs - 24 hr 04/24/21 12:45 04/24/21 12:56 04/24/21 12:57 Temperature Pulse Rate 68 64 Respiratory Rate 18 18 Blood Pressure Pulse Oximetry 95 04/24/21 14:00 04/24/21 14:50 04/24/21 15:07 Temperature 97.2 F L 97.2 F L Pulse Rate 70 68 62 Respiratory Rate 24 H 24 H Blood Pressure 120/51 L 111/45 L Pulse Oximetry 93 96 04/24/21 16:00 04/24/21 16:52 04/24/21 17:00 Temperature 96.9 F L 98.4 F Pulse Rate 65 69 75 Respiratory Rate 22 H 18 24 H Blood Pressure 118/52 L 137/44 L Pulse
[2021-04-25] MEDS: INSULIN ASPART (*BKC) 100 UNITS/ML 10 UNITS SUB-Q (12:14)
[2021-04-25] MEDS: ALBUTEROL SULFATE (*SP) AEROSOL 1 PUFF 2 PUFF INHALATION ×3 (13:07→21:27)
[2021-04-25 13:46] LABS: Hematocrit 25.7 % (37.0-47.0); Hemoglobin 8.6 g/dL (12.0-15.0); Immature Granulocyte Absolute 0.08 K/mm3 (0.00-0.031); Immature Granulocyte Percent A 1.2 % (0-0.5); Lymphocytes Absolute Auto 0.65 K/mm3 (0.9-3.2); Lymphocytes Percent Auto 9.9 % (18.3-44.2); Mean Corpuscular HGB Conc 33.5 g/dl (32-36); Mean Corpuscular Hemoglobin 30.1 pg (26-34); Mean Corpuscular Volume 89.9 fl (80-100); Mean Platelet Volume 10.8 fl (7.4-10.4); Monocytes Absolute Auto 0.6 K/mm3 (0.1-0.6); Neutrophils Absolute Auto 5.2 K/mm3 (1.3-6.7); Neutrophils Percent Auto 79.9 % (45.5-73.1); Platelet Count Result 177 k/mm3 (150-375); Red Blood Count 2.86 M/mm3 (4.2-5.4); Red Cell Distribution Width 13.5 % (11.5-14.5); White Blood Count 6.5 K/mm3 (4.5-10.0)
[2021-04-25 13:51] LABS: Glucose Point of Care 306 mg/dl (65-105)
[2021-04-25 14:08] LABS: Alanine Aminotransferase 36 U/L (4-35)
[2021-04-25] MEDS: BARICITINIB 2 MG TABLET BY MOUTH (15:18)
[2021-04-25 15:39] LABS: Glucose Point of Care 190 mg/dl (65-105)
[2021-04-25] MEDS: INSULIN ASPART (*BKC) 100 UNITS/ML SUB-Q (16:16)
[2021-04-25 20:03] LABS: Glucose Point of Care 163 mg/dl (65-105)
[2021-04-25] MEDS: REMDESIVIR 100 MG/NS 250 ML 100 MG/250 ML BAG 250 MG IVPB (21:15)
[2021-04-26] VITALS (27 sets, daily range): BP systolic 123–139; BP diastolic 45–68; PULSE 63–89; RESP 16–28; TEMP 36.6–37; O2SAT 87–99
[2021-04-26] MEDS: ALBUTEROL SULFATE (*SP) AEROSOL 1 PUFF 2 PUFF INHALATION ×7 (00:20→23:36)
[2021-04-26 06:04] LABS: Hematocrit 25.6 % (37.0-47.0); Hemoglobin 8.6 g/dL (12.0-15.0); Immature Granulocyte Absolute 0.07 K/mm3 (0.00-0.031); Immature Granulocyte Percent A 1.4 % (0-0.5); Lymphocytes Percent Auto 12.1 % (18.3-44.2); Mean Corpuscular HGB Conc 33.6 g/dl (32-36); Mean Corpuscular Hemoglobin 29.9 pg (26-34); Mean Corpuscular Volume 88.9 fl (80-100); Mean Platelet Volume 10.6 fl (7.4-10.4); Monocytes Absolute Auto 0.4 K/mm3 (0.1-0.6); Neutrophils Absolute Auto 3.9 K/mm3 (1.3-6.7); Neutrophils Percent Auto 78.5 % (45.5-73.1); Platelet Count Result 180 k/mm3 (150-375); Red Blood Count 2.88 M/mm3 (4.2-5.4); Red Cell Distribution Width 13.8 % (11.5-14.5)
[2021-04-26 06:13] LABS: INR 1.1; Prothrombin Time 13.6 Seconds (11.1-14.7)
[2021-04-26 06:16] LABS: Alanine Aminotransferase 34 U/L (4-35); Albumin Level 3.7 g/dL (3.5-5.1); Alkaline Phosphatase 49 U/L (38-126); Anion Gap 10 mmol/L (8-16); Aspartate Amino Transferase 79 U/L (14-36); Bilirubin,Total 0.4 mg/dL (0.2-1.3); Blood Urea Nitrogen 39 mg/dL (7-17); CRP 2.5 mg/dL (<1.0); Calcium 11.8 mg/dL (8.4-10.2); Carbon Dioxide 26 mmol/L (22-30); Chloride 99 mmol/L (98-107); Estimated CRCL calculation 40 ml/min; Estimated Glomerular Filt Rate 53; Glucose 238 mg/dL (65-110); Potassium 3.5 mmol/L (3.4-5.0); Sodium 135 mmol/L (137-145)
[2021-04-26] MEDS: LEVOTHYROXINE SODIUM 112 MCG TABLET PO (06:29)
[2021-04-26 07:28] LABS: Glucose Point of Care 318 mg/dl (65-105)
[2021-04-26] MEDS: NEBIVOLOL HCL 5 MG TABLET 40 MG PO (09:18)
[2021-04-26] MEDS: INSULIN GLARGINE (*BKC) 100 UNITS/ML 50 UNITS SUB-Q (09:19)
[2021-04-26] MEDS: BARICITINIB 2 MG TABLET BY MOUTH (09:20)
[2021-04-26] MEDS: CITALOPRAM HYDROBROMIDE 20 MG TABLET PO (09:20)
[2021-04-26] MEDS: amLODIPine BESYLATE 5 MG TABLET 10 MG PO (09:20)
[2021-04-26] MEDS: ENOXAPARIN 40 MG/0.4 ML SYRINGE SUB-Q (09:20)
[2021-04-26] MEDS: INSULIN ASPART (*BKC) 100 UNITS/ML 8 UNITS SUB-Q ×2 (09:21→16:46)
[2021-04-26] MEDS: INSULIN ASPART (*BKC) 100 UNITS/ML SUB-Q ×2 (09:21→16:46)
[2021-04-26 11:42] LABS: Glucose Point of Care 413 mg/dl (65-105)
--- NOTE | 2021-04-26 12:29 | PM.IMPN ---
Progress Note: A&P Assessment and Plan (1) Pneumonia due to COVID-19 virus: Code(s): U07.1 - COVID-19; J12.82 - Pneumonia due to coronavirus disease 2018 Status: Acute Assessment and Plan: Continue remdesivir, decadron and lovenox -ceftriaxone and azithromycin has been started by previous provider and will be continued due to severity although bacterial infection appears less likely -due to the patient's severity, baricitinib has been discussed and patient has agreed to this. This was started 04/25/21 -pt received plasma 04/24/21 -She is a full code at this time. (2) Acute respiratory failure with hypoxia: Code(s): J96.01 - Acute respiratory failure with hypoxia Status: Acute Assessment and Plan: Continue supplemental o2 (3) Emphysema/COPD: Code(s): J43.9 - Emphysema, unspecified Status: Acute Assessment and Plan: continue tx as above (4) Type 2 diabetes mellitus: Code(s): E11.9 - Type 2 diabetes mellitus without complications Status: Acute Assessment and Plan: Last glucose 413 but waxes and wanes greatly. -she ranges from 163-424 -continue 8 units with meals with sliding scale (both adjusted this morning) and increase Lantus to 55 units. -I will see how her range fluctuates again through the night with these adjustments. She may need more insulin during the day and less at night. Further adjustments to be made depending on her pattern -pts a1c 6.6, good control at home with her home regimen -likely worse due to acute illness and steroids - continue accuchecks ACHS -this will need to be discontinued when the steroids are finished as the patient does not usually require this amount of insulin (5) Hypertension: Code(s): I10 - Essential (primary) hypertension Status: Acute Assessment and Plan: Last bp 139/45 -continue norvasc and bystolic (6) ALCIRA (acute kidney injury): Code(s): N17.9 - Acute kidney failure, unspecified Status: Acute Assessment and Plan: Normalized -continue to monitor (7) Hyponatremia: Code(s): E87.1 - Hypo-osmolality and hyponatremia Status: Acute Assessment and Plan: last sodium 135 -will monitor -no neurological deficits Subjective Date/time seen: 04/26/21 12:29 Interval history: Pt is a 80 y/o female here for COVID. Patient was seen today and still feels lousy. She says she feels short of breath and cannot move without becoming increasingly short of breath. She has not gotten out of bed. She continues to have a cough and muscle aches. She denies chest pain, nausea, vomiting fevers or chills. She has no appetite but is currently eating oatmeal. She feels constipated. Exam Narrative: General: Well developed well nourished patient in NAD with high flow o2 applied HEENT: normocephalic Neck: supple Neuro: Alert and oriented x4 CV:RRR Resp:crackles at the bases, no wheezing Abd: Soft, non distended. No pain to palpation. Positive bowel sounds Extremities: No swelling, erythema, or pain to palpation. Objective Data Vital Signs Vital Signs: Vital Signs - 24 hr 04/25/21 13:12 04/25/21 14:00 04/25/21 15:39 Temperature 98.3 F Pulse Rate 65 77 Respiratory Rate 26 H Blood Pressure 140/55 L Pulse Oximetry 93 91 04/25/21 16:00 04/25/21 16:25 04/25/21 17:56 Temperature Pulse Rate 67 Respiratory Rate Blood Pressure Pulse Oximetry 91 93 04/25/21 18:00 04/25/21 20:00 04/25/21 21:00 Temperature 98.1 F Pulse Rate 69 64 Respiratory Rate 20 Blood Pressure 141/54 H Pulse Oximetry 96 96 04/25/21 21:28 04/25/21 21:30 04/25/21 22:00 Temperature Pulse Rate 70 70 69 Respiratory Rate Blood Pressure Pulse Oximetry 94 04/25/21 23:26 04/26/21 00:00 04/26/21 02:00 Temperature 98.5 F Pulse Rate 65 65 67 Respiratory Rate 18 Blood Pressure 126/44 L Pulse Oximetry
[2021-04-26] MEDS: INSULIN ASPART (*BKC) 100 UNITS/ML 12 UNITS SUB-Q (12:53)
[2021-04-26] MEDS: ACETAMINOPHEN 325 MG TABLET 650 MG PO (14:32)
--- NOTE | 2021-04-26 14:42 | PCPTNOTE ---
15 minutes spent in attempting an evaluation. Pt unable/unwilling to participate for any testing or motion of extremities; refused to attempt to sit at bedside. Try eval tomorrow.
--- NOTE | 2021-04-26 15:17 | PCOTNOTE ---
Attempted OT evaluation. Pt. refused and wasn't willing to participate. Will attempt again tomorrow as able.
[2021-04-26 15:46] LABS: Glucose Point of Care 257 mg/dl (65-105)
[2021-04-26 16:33] LABS: Glucose Point of Care 234 mg/dl (65-105)
[2021-04-26 20:00] LABS: Glucose Point of Care 161 mg/dl (65-105)
[2021-04-26] MEDS: REMDESIVIR 100 MG/NS 250 ML 100 MG/250 ML BAG 250 MG IVPB (20:39)
[2021-04-27] VITALS (24 sets, daily range): BP systolic 119–153; BP diastolic 54–83; PULSE 54–87; RESP 14–22; TEMP 36.4–36.9; O2SAT 72–99
[2021-04-27] MEDS: ALBUTEROL SULFATE (*SP) AEROSOL 1 PUFF 2 PUFF INHALATION ×6 (04:35→23:51)
[2021-04-27] MEDS: LEVOTHYROXINE SODIUM 112 MCG TABLET PO (05:41)
[2021-04-27 08:19] LABS: Glucose Point of Care 180 mg/dl (65-105)
[2021-04-27 08:55] LABS: INR 1.1; Prothrombin Time 13.9 Seconds (11.1-14.7)
[2021-04-27 08:57] LABS: D Dimer 2.66 ug/mL (<0.48)
[2021-04-27 08:58] LABS: Basophils Percent Auto 0.2 % (0.2-1.2); Hematocrit 27.5 % (37.0-47.0); Hemoglobin 8.8 g/dL (12.0-15.0); Immature Granulocyte Percent A 1.8 % (0-0.5); Lymphocytes Absolute Auto 0.62 K/mm3 (0.9-3.2); Lymphocytes Percent Auto 11.3 % (18.3-44.2); Mean Corpuscular Hemoglobin 29.8 pg (26-34); Mean Corpuscular Volume 93.2 fl (80-100); Mean Platelet Volume 10.3 fl (7.4-10.4); Monocytes Absolute Auto 0.4 K/mm3 (0.1-0.6); Monocytes Percent Auto 6.8 % (2.6-8.5); Neutrophils Absolute Auto 4.4 K/mm3 (1.3-6.7); Neutrophils Percent Auto 79.9 % (45.5-73.1); Platelet Count Result 190 k/mm3 (150-375); Red Blood Count 2.95 M/mm3 (4.2-5.4); Red Cell Distribution Width 13.8 % (11.5-14.5); White Blood Count 5.5 K/mm3 (4.5-10.0)
[2021-04-27] MEDS: ENOXAPARIN 40 MG/0.4 ML SYRINGE SUB-Q (09:02)
[2021-04-27] MEDS: NEBIVOLOL HCL 5 MG TABLET 40 MG PO (09:02)
[2021-04-27] MEDS: BARICITINIB 2 MG TABLET BY MOUTH (09:03)
[2021-04-27] MEDS: amLODIPine BESYLATE 5 MG TABLET 10 MG PO (09:03)
[2021-04-27] MEDS: INSULIN ASPART (*BKC) 100 UNITS/ML 8 UNITS SUB-Q ×3 (09:03→17:01)
[2021-04-27] MEDS: INSULIN GLARGINE (*BKC) 100 UNITS/ML 55 UNITS SUB-Q (09:03)
[2021-04-27] MEDS: CITALOPRAM HYDROBROMIDE 20 MG TABLET PO (09:03)
[2021-04-27 09:05] LABS: Alanine Aminotransferase 31 U/L (4-35); Albumin Level 3.6 g/dL (3.5-5.1); Alkaline Phosphatase 51 U/L (38-126); Anion Gap 9 mmol/L (8-16); Aspartate Amino Transferase 63 U/L (14-36); Bilirubin,Total 0.4 mg/dL (0.2-1.3); Blood Urea Nitrogen 34 mg/dL (7-17); CRP 1.6 mg/dL (<1.0); Calcium 11.1 mg/dL (8.4-10.2); Carbon Dioxide 25 mmol/L (22-30); Chloride 100 mmol/L (98-107); Estimated CRCL calculation 50 ml/min; Estimated Glomerular Filt Rate > 60; Glucose 192 mg/dL (65-110); Lactate Dehydrogenase 1118 U/L (313-618); Potassium 3.2 mmol/L (3.4-5.0); Sodium 134 mmol/L (137-145)
[2021-04-27 09:48] LABS: Platelet Estimate Adequate (Adequate); Poikilocytosis 1+ (NORMAL)
[2021-04-27 11:44] LABS: Glucose Point of Care 375 mg/dl (65-105)
[2021-04-27] MEDS: INSULIN ASPART (*BKC) 100 UNITS/ML SUB-Q ×2 (12:41→17:01)
--- NOTE | 2021-04-27 12:48 | PM.IMPN ---
Progress Note: A&P Assessment and Plan (1) Pneumonia due to COVID-19 virus: Code(s): U07.1 - COVID-19; J12.82 - Pneumonia due to coronavirus disease 2018 Status: Acute Assessment and Plan: Continue remdesivir, decadron and lovenox -ceftriaxone and azithromycin has been started by previous provider and will be continued due to severity although bacterial infection appears less likely -due to the patient's severity, baricitinib has been discussed and patient has agreed to this. This was started 04/25/21 -pt received plasma 04/24/21 -She is a full code at this time. (2) Acute respiratory failure with hypoxia: Code(s): J96.01 - Acute respiratory failure with hypoxia Status: Acute Assessment and Plan: Continue supplemental o2 -wean as tolerated (3) Emphysema/COPD: Code(s): J43.9 - Emphysema, unspecified Status: Acute Assessment and Plan: continue tx as above (4) Type 2 diabetes mellitus: Code(s): E11.9 - Type 2 diabetes mellitus without complications Status: Acute Assessment and Plan: Last glucose 375 but waxes and wanes greatly. She is usually high at lunch and back to 100s in the evenings/morning -she ranges from 161-424 -continue 8 units with meals with sliding scale as well as Lantus at 55 units. -pts a1c 6.6, good control at home with her home regimen -likely worse due to acute illness and steroids - continue accuchecks ACHS -this will need to be discontinued when the steroids are finished as the patient does not usually require this amount of insulin (5) Hypertension: Code(s): I10 - Essential (primary) hypertension Status: Acute Assessment and Plan: Last bp 124/54 -continue norvasc and bystolic (6) ALCIRA (acute kidney injury): Code(s): N17.9 - Acute kidney failure, unspecified Status: Acute Assessment and Plan: Normalized -continue to monitor (7) Hyponatremia: Code(s): E87.1 - Hypo-osmolality and hyponatremia Status: Acute Assessment and Plan: last sodium 134 -will monitor -no neurological deficits (8) Hypercalcemia: Code(s): E83.52 - Hypercalcemia Status: Acute Assessment and Plan: mild, could be due to dehydration -hx of breast cancer -would repeat outpt after acute illness resolved. Subjective Date/time seen: 04/27/21 12:48 Interval history: Pt is a 80 y/o female here for COVID. Patient was seen today and still feels lousy. She says she feels short of breath and cannot move without becoming increasingly short of breath. She has not gotten out of bed. She continues to have a cough and muscle aches. She denies chest pain, nausea, vomiting fevers or chills. She has no appetite. No BM Exam Narrative: General: Well developed well nourished patient in NAD with high flow o2 applied HEENT: normocephalic Neck: supple Neuro: Alert and oriented x4 CV:RRR. tele without arrhythmias Resp:crackles at the bases, no wheezing. Decreased breath sounds Abd: Soft, non distended. No pain to palpation. Positive bowel sounds Extremities: No swelling, erythema, or pain to palpation. Objective Data Vital Signs Vital Signs: Vital Signs - 24 hr 04/26/21 14:00 04/26/21 16:00 04/26/21 18:00 Temperature 98.6 F Pulse Rate 71 67 68 Respiratory Rate 22 H Blood Pressure 138/53 L Pulse Oximetry 92 93 Pulse Oximetry [With Activity During Therapy Session] 04/26/21 20:00 04/26/21 21:00 04/26/21 21:15 Temperature 97.9 F Pulse Rate 75 72 Respiratory Rate 20 16 Blood Pressure 137/56 L Pulse Oximetry 87 L 96 90 Pulse Oximetry [With Activity During Therapy Session] 04/26/21 21:57 04/26/21 22:00 04/26/21 23:34 Temperature Pulse Rate 89 68 74 Respiratory Rate 16 16 Blood Pressure Pulse Oximetry 94 Pulse Oximetry [With Activity During Therapy Session] 04/26/21 23:37 04/26/21 23:50 04/26
[2021-04-27] MEDS: POTASSIUM CHLORIDE 20 MEQ TABLET 40 MEQ PO (13:07)
[2021-04-27] MEDS: polyethylene glycoL 3350 17 GM POWD.PACK PO (13:50)
[2021-04-27 16:16] LABS: Glucose Point of Care 252 mg/dl (65-105)
[2021-04-27 20:19] LABS: Glucose Point of Care 109 mg/dl (65-105)
[2021-04-27] MEDS: REMDESIVIR 100 MG/NS 250 ML 100 MG/250 ML BAG 250 MG IVPB (21:30)
[2021-04-28] VITALS (18 sets, daily range): BP systolic 123–140; BP diastolic 48–68; PULSE 53–78; RESP 16–24; TEMP 36.4–37.2; O2SAT 93–100
[2021-04-28] MEDS: ALBUTEROL SULFATE (*SP) AEROSOL 1 PUFF 2 PUFF INHALATION ×5 (04:39→20:36)
[2021-04-28] MEDS: LEVOTHYROXINE SODIUM 112 MCG TABLET PO (05:55)
[2021-04-28 06:55] LABS: Hematocrit 22.9 % (37.0-47.0); Hemoglobin 7.7 g/dL (12.0-15.0); Immature Granulocyte Absolute 0.14 K/mm3 (0.00-0.031); Lymphocytes Absolute Auto 0.53 K/mm3 (0.9-3.2); Lymphocytes Percent Auto 7.7 % (18.3-44.2); Mean Corpuscular HGB Conc 33.6 g/dl (32-36); Mean Corpuscular Hemoglobin 30.3 pg (26-34); Mean Corpuscular Volume 90.2 fl (80-100); Mean Platelet Volume 10.6 fl (7.4-10.4); Monocytes Absolute Auto 0.3 K/mm3 (0.1-0.6); Monocytes Percent Auto 4.4 % (2.6-8.5); Neutrophils Absolute Auto 5.9 K/mm3 (1.3-6.7); Neutrophils Percent Auto 85.9 % (45.5-73.1); Platelet Count Result 191 k/mm3 (150-375); Red Blood Count 2.54 M/mm3 (4.2-5.4); Red Cell Distribution Width 13.7 % (11.5-14.5); White Blood Count 6.9 K/mm3 (4.5-10.0)
[2021-04-28 07:27] LABS: Alanine Aminotransferase 27 U/L (4-35); Albumin Level 2.8 g/dL (3.5-5.1); Alkaline Phosphatase 45 U/L (38-126); Anion Gap 18 mmol/L (8-16); Aspartate Amino Transferase 55 U/L (14-36); Bilirubin,Total < 0.1 mg/dL (0.2-1.3); Blood Urea Nitrogen 24 mg/dL (7-17); Calcium 8.4 mg/dL (8.4-10.2); Carbon Dioxide 21 mmol/L (22-30); Chloride 85 mmol/L (98-107); Estimated CRCL calculation 55 ml/min; Estimated Glomerular Filt Rate > 60; Glucose 818 mg/dL (65-110); Potassium 3.4 mmol/L (3.4-5.0); Sodium 124 mmol/L (137-145)
[2021-04-28 08:11] LABS: Glucose Point of Care 138 mg/dl (65-105)
[2021-04-28 08:31] LABS: NT Pro B Type Natriuretic Pept 1140 pg/mL (5-100)
[2021-04-28 08:35] LABS: Anisocytosis 2+ (NORMAL); Platelet Estimate Adequate (Adequate)
[2021-04-28 08:36] LABS: Hypochromasia 1+ (NORMAL); Ovalocytes 1+ (NORMAL)
[2021-04-28] MEDS: BARICITINIB 2 MG TABLET BY MOUTH (10:52)
[2021-04-28] MEDS: ENOXAPARIN 40 MG/0.4 ML SYRINGE SUB-Q (10:52)
[2021-04-28] MEDS: polyethylene glycoL 3350 17 GM POWD.PACK PO (10:52)
[2021-04-28] MEDS: CITALOPRAM HYDROBROMIDE 20 MG TABLET PO (10:53)
[2021-04-28] MEDS: NEBIVOLOL HCL 5 MG TABLET 40 MG PO (10:53)
[2021-04-28] MEDS: amLODIPine BESYLATE 5 MG TABLET 10 MG PO (10:53)
[2021-04-28] MEDS: INSULIN GLARGINE (*BKC) 100 UNITS/ML 55 UNITS SUB-Q (10:54)
[2021-04-28 11:30] LABS: Glucose Point of Care 209 mg/dl (65-105)
[2021-04-28] MEDS: INSULIN ASPART (*BKC) 100 UNITS/ML SUB-Q (12:15)
[2021-04-28] MEDS: INSULIN ASPART (*BKC) 100 UNITS/ML 8 UNITS SUB-Q ×2 (12:15→16:38)
[2021-04-28 13:36] LABS: Alanine Aminotransferase 35 U/L (4-35); Albumin Level 3.6 g/dL (3.5-5.1); Alkaline Phosphatase 68 U/L (38-126); Anion Gap 10 mmol/L (8-16); Aspartate Amino Transferase 68 U/L (14-36); Bilirubin,Total 0.3 mg/dL (0.2-1.3); Blood Urea Nitrogen 28 mg/dL (7-17); Calcium 10.8 mg/dL (8.4-10.2); Carbon Dioxide 24 mmol/L (22-30); Chloride 100 mmol/L (98-107); Estimated CRCL calculation 44 ml/min; Estimated Glomerular Filt Rate 60; Glucose 226 mg/dL (65-110); Potassium 3.8 mmol/L (3.4-5.0); Sodium 134 mmol/L (137-145)
[2021-04-28 16:11] LABS: Glucose Point of Care 159 mg/dl (65-105)
--- NOTE | 2021-04-28 16:21 | P.PNIM_ITS ---
Progress Note: A&P Assessment and Plan (1) Pneumonia due to COVID-19 virus: Code(s): U07.1 - COVID-19; J12.82 - Pneumonia due to coronavirus disease 2018 Status: Acute Assessment and Plan: * Continue remdesivir, decadron and lovenox * ceftriaxone and azithromycin has been started by previous provider and will be continued at this time * Inflammatory markers with an LDH of 11 18, CRP of 1.6, ferritin of 220, D- dimer is 2.66 * CTA was negative for PE but did show diffuse lung disease consistent with COVID-19 and moderate emphysema * baricitinib and has been started 04/25/21 * plasma [04/24/21] * BNP 1140 2 mg of IV Bumex given to keep her more on the dry side * Abdelrahman an IS therapy * Albuterol nebs * She is a full code at this time. (2) Acute respiratory failure with hypoxia: Code(s): J96.01 - Acute respiratory failure with hypoxia Status: Acute Assessment and Plan: * Continue supplemental o2 * wean to maintain saturation greater than 90% (3) Emphysema/COPD: Code(s): J43.9 - Emphysema, unspecified Status: Acute Assessment and Plan: * continue tx as above (4) Type 2 diabetes mellitus: Code(s): E11.9 - Type 2 diabetes mellitus without complications Status: Acute Assessment and Plan: * Glucose on labs was 226 POCT is 130s to 200 * continue 8 units with meals with sliding scale as well as Lantus at 55 units. * a1c 6.6, good control at home with her home regimen * worse due to acute illness and steroids * continue accuchecks ACHS (5) Hypertension: Code(s): I10 - Essential (primary) hypertension Status: Acute Assessment and Plan: * Last bp 130/48 * continue norvasc and bystolic * Trend blood pressure * Adjust medications as needed (6) ALCIRA (acute kidney injury): Code(s): N17.9 - Acute kidney failure, unspecified Status: Acute Assessment and Plan: * Normalized with a BUN of 28 creatinine 0.9 * Trend labs * Labs in a.m. (7) Hyponatremia: Code(s): E87.1 - Hypo-osmolality and hyponatremia Status: Acute Assessment and Plan: * last sodium 134 * will continue to trend * consider IV NACL if needed (8) Hypercalcemia: Code(s): E83.52 - Hypercalcemia Status: Acute Assessment and Plan: * mild, could be due to dehydration * hx of breast cancer * would repeat outpt after acute illness resolved. * will check a PTH in the am Time Spent With Patient Time with patient: Greater than 35 minutes Subjective Date/time seen: 04/28/21 07:50 Interval history: Patient is an 80-year-old female who is here for COVID-19. Patient states that she has just a little off today. She states that she does not feel like she is getting any better but does not feel any worse either. She does have weakness and shortness of breath. She also complained of lack of appetite with a cough. She also states that she has a small headache with lightheadedness. She denies fever, chills, nausea, vomiting, abdominal pain or weakness. Patient did say that she is very tired and that she has pager fatigue. Education was given to the patient about lying on her stomach or side patient states that she can not lie on her stomach pressure tried earlier side more. Says when to recheck on patient this afternoon and she has been up in the chair for most of the day BNP was elevated and Bumex will be gi
--- NOTE | 2021-04-28 16:21 | PM.IMPN ---
Progress Note: A&P Assessment and Plan (1) Pneumonia due to COVID-19 virus: Code(s): U07.1 - COVID-19; J12.82 - Pneumonia due to coronavirus disease 2019 Status: Acute Assessment and Plan: Continue remdesivir, decadron and lovenox ceftriaxone and azithromycin has been started by previous provider and will be continued at this time Inflammatory markers with an LDH of 11 18, CRP of 1.6, ferritin of 220, D-dimer is 2.66 CTA was negative for PE but did show diffuse lung disease consistent with COVID-19 and moderate emphysema baricitinib and has been started 04/25/21 plasma [04/24/21] BNP 1140 2 mg of IV Bumex given to keep her more on the dry side Abdelrahman an IS therapy Albuterol nebs She is a full code at this time. (2) Acute respiratory failure with hypoxia: Code(s): J96.01 - Acute respiratory failure with hypoxia Status: Acute Assessment and Plan: Continue supplemental o2 wean to maintain saturation greater than 90% (3) Emphysema/COPD: Code(s): J43.9 - Emphysema, unspecified Status: Acute Assessment and Plan: continue tx as above (4) Type 2 diabetes mellitus: Code(s): E11.9 - Type 2 diabetes mellitus without complications Status: Acute Assessment and Plan: Glucose on labs was 226 POCT is 130s to 200 continue 8 units with meals with sliding scale as well as Lantus at 55 units. a1c 6.6, good control at home with her home regimen worse due to acute illness and steroids continue accuchecks ACHS (5) Hypertension: Code(s): I10 - Essential (primary) hypertension Status: Acute Assessment and Plan: Last bp 130/48 continue norvasc and bystolic Trend blood pressure Adjust medications as needed (6) ALCIRA (acute kidney injury): Code(s): N17.9 - Acute kidney failure, unspecified Status: Acute Assessment and Plan: Normalized with a BUN of 28 creatinine 0.9 Trend labs Labs in a.m. (7) Hyponatremia: Code(s): E87.1 - Hypo-osmolality and hyponatremia Status: Acute Assessment and Plan: last sodium 134 will continue to trend consider IV NACL if needed (8) Hypercalcemia: Code(s): E83.52 - Hypercalcemia Status: Acute Assessment and Plan: mild, could be due to dehydration hx of breast cancer would repeat outpt after acute illness resolved. will check a PTH in the am Time Spent With Patient Time with patient: Greater than 35 minutes Subjective Date/time seen: 04/28/21 07:50 Interval history: Patient is an 80-year-old female who is here for COVID-19. Patient states that she has just a little off today. She states that she does not feel like she is getting any better but does not feel any worse either. She does have weakness and shortness of breath. She also complained of lack of appetite with a cough. She also states that she has a small headache with lightheadedness. She denies fever, chills, nausea, vomiting, abdominal pain or weakness. Patient did say that she is very tired and that she has pager fatigue. Education was given to the patient about lying on her stomach or side patient states that she can not lie on her stomach pressure tried earlier side more. Says when to recheck on patient this afternoon and she has been up in the chair for most of the day BNP was elevated and Bumex will be given for that. Review of Systems Review of Systems: All systems reviewed & are unremarkable except as noted in HPI and below Exam Const: General: comfortable, no acute distress, well developed, alert, awake and ill appearing acutely Nutritional Appearance: average body habitus Orientation/consciousness: patient oriented x3 HENMT: Head: normal to inspection, normocephalic and atraumatic Ears: hearing grossly normal bilaterally General nose exam: Normal external nose present Face and sinus: normal facial
[2021-04-28] MEDS: BUMETANIDE INJ 1 MG/4 ML VIAL 2 MG IV PUSH (16:38)
[2021-04-28] MEDS: REMDESIVIR 100 MG/NS 250 ML 100 MG/250 ML BAG 250 MG IVPB (21:33)
[2021-04-28] MEDS: DEXTROSE 50% 25 GM/50 ML SYRINGE IV PUSH (22:06)
[2021-04-28 22:07] LABS: Glucose Point of Care 61 mg/dl (65-105)
[2021-04-28 23:29] LABS: Glucose Point of Care 205 mg/dl (65-105)
[2021-04-29] VITALS (18 sets, daily range): BP systolic 114–158; BP diastolic 44–62; PULSE 50–74; RESP 14–24; TEMP 36–36.8; O2SAT 93–100
[2021-04-29] MEDS: ALBUTEROL SULFATE (*SP) AEROSOL 1 PUFF 2 PUFF INHALATION ×2 (00:21→04:20)
[2021-04-29 04:44] LABS: Basophils Percent Auto 0.1 % (0.2-1.2); Hematocrit 27.1 % (37.0-47.0); Hemoglobin 9.2 g/dL (12.0-15.0); Immature Granulocyte Absolute 0.25 K/mm3 (0.00-0.031); Immature Granulocyte Percent A 2.4 % (0-0.5); Lymphocytes Absolute Auto 0.44 K/mm3 (0.9-3.2); Lymphocytes Percent Auto 4.3 % (18.3-44.2); Mean Corpuscular HGB Conc 33.9 g/dl (32-36); Mean Corpuscular Hemoglobin 30.2 pg (26-34); Mean Corpuscular Volume 88.9 fl (80-100); Mean Platelet Volume 10.2 fl (7.4-10.4); Monocytes Absolute Auto 0.4 K/mm3 (0.1-0.6); Monocytes Percent Auto 4.3 % (2.6-8.5); Neutrophils Absolute Auto 9.2 K/mm3 (1.3-6.7); Neutrophils Percent Auto 88.9 % (45.5-73.1); Nucleated Red Blood Cells Perc 0.3 % (0.0-0.2); Platelet Count Result 219 k/mm3 (150-375); Red Blood Count 3.05 M/mm3 (4.2-5.4); Red Cell Distribution Width 13.5 % (11.5-14.5); White Blood Count 10.3 K/mm3 (4.5-10.0)
[2021-04-29 04:54] LABS: INR 1.1; Prothrombin Time 14.3 Seconds (11.1-14.7)
[2021-04-29 04:57] LABS: Alanine Aminotransferase 32 U/L (4-35); Albumin Level 3.5 g/dL (3.5-5.1); Alkaline Phosphatase 61 U/L (38-126); Anion Gap 8 mmol/L (8-16); Aspartate Amino Transferase 57 U/L (14-36); Bilirubin,Total 0.4 mg/dL (0.2-1.3); Blood Urea Nitrogen 26 mg/dL (7-17); CRP 1.3 mg/dL (<1.0); Calcium 10.5 mg/dL (8.4-10.2); Carbon Dioxide 27 mmol/L (22-30); Chloride 99 mmol/L (98-107); Estimated CRCL calculation 44 ml/min; Estimated Glomerular Filt Rate 60; Glucose 144 mg/dL (65-110); Lactate Dehydrogenase 1084 U/L (313-618); Magnesium 2.1 mg/dL (1.6-2.3); Potassium 3.8 mmol/L (3.4-5.0); Sodium 134 mmol/L (137-145)
[2021-04-29 05:10] LABS: D Dimer 10.54 ug/mL (<0.48)
[2021-04-29 05:24] LABS: Anisocytosis 2+ (NORMAL); Hypochromasia 1+ (NORMAL); Ovalocytes 1+ (NORMAL); Platelet Estimate Adequate (Adequate)
[2021-04-29 05:25] LABS: Tear Drop Cells 1+ (NORMAL)
[2021-04-29] MEDS: LEVOTHYROXINE SODIUM 112 MCG TABLET PO (06:11)
--- NOTE | 2021-04-29 09:20 | PCPTNOTE ---
RN reports pt became unresponsive and RR was called. Pt is not appropriate for therapy at this time. Will check back later as schedule allows and pt is available/appropriate.
[2021-04-29 09:25] LABS: Alveolar/Arterial O2 Gradient 610.8 mmHg; HCO3 ABG 25.4 mEq/l (22.0-26.0); Oxygen Content ABG 13.5 %vol (16.0-22.0); Oxyhemoglobin 93.4 % THb (90.0-100.0); PCO2 ABG 31.2 mmHg (35.0-45.0); PO2 FiO2 Ratio Arterial Blood 0.71 %; Total Hemoglobin 10.2 g/dL (12.0-18.0)
[2021-04-29 09:27] LABS: Device HIGH FLOW THERAPY; Site Drawn LEFT BRACHIAL; pH ABG 7.529 (7.350-7.450)
[2021-04-29] MEDS: LORazepam INJ (*CRX) 2 MG/ML VIAL 1 MG IV PUSH (09:33)
[2021-04-29 09:34] LABS: Fractional Inspired Oxygen 60 %
[2021-04-29 09:51] LABS: Glucose Point of Care 185 mg/dl (65-105)
--- NOTE | 2021-04-29 10:38 | P.PNIM_ITS ---
Progress Note: A&P Assessment and Plan (1) Pneumonia due to COVID-19 virus: Code(s): U07.1 - COVID-19; J12.82 - Pneumonia due to coronavirus disease 2019 Status: Acute Assessment and Plan: * Continue remdesivir, decadron and lovenox * ceftriaxone and azithromycin has been started by previous provider and will be continued at this time * Inflammatory markers with an LDH of 1084, CRP of 1.3, ferritin of 191 * Still requiring 45L and 60% oxygen * blood gas showed metabolic and respiratory alkalosis * D.Dimer is considerably higher than previous reading at 10.54 * CTA NO PE, worsening covid PNA * baricitinib and has been started 04/25/21 * plasma [04/24/21] * Abdelrahman and IS therapy * Albuterol nebs * She is a full code at this time. (2) Acute respiratory failure with hypoxia: Code(s): J96.01 - Acute respiratory failure with hypoxia Status: Acute Assessment and Plan: * Continue supplemental o2 * wean to maintain saturation greater than 90% (3) Emphysema/COPD: Code(s): J43.9 - Emphysema, unspecified Status: Acute Assessment and Plan: * continue tx as above (4) Type 2 diabetes mellitus: Code(s): E11.9 - Type 2 diabetes mellitus without complications Status: Acute Assessment and Plan: * Glucose on labs was 144 POCT was 185 * continue 8 units with meals with sliding scale as well as Lantus at 55 units. * a1c 6.6, good control at home with her home regimen * worse due to acute illness and steroids * continue accuchecks ACHS (5) Hypertension: Code(s): I10 - Essential (primary) hypertension Status: Acute Assessment and Plan: * Last bp 154/59 * continue norvasc and bystolic * Trend blood pressure * Adjust medications as needed (6) ALCIRA (acute kidney injury): Code(s): N17.9 - Acute kidney failure, unspecified Status: Acute Assessment and Plan: * Normalized with a BUN of 26 creatinine 0.9 * Trend labs * Labs in a.m. (7) Hyponatremia: Code(s): E87.1 - Hypo-osmolality and hyponatremia Status: Acute Assessment and Plan: * last sodium 134 * will continue to trend * consider IV NACL if needed (8) Hypercalcemia: Code(s): E83.52 - Hypercalcemia Status: Acute Assessment and Plan: * mild, could be due to dehydration * hx of breast cancer * would repeat outpt after acute illness resolved. * PTH pending (9) Acute metabolic encephalopathy: Code(s): G93.41 - Metabolic encephalopathy Status: Acute Assessment and Plan: * episode of unresponsiveness on 04/29/21 * POC glucose 185 * Vital signs stable * 1mg of ativan given at that time, with response * CT of the brain: chronic age related findings, no acute findings noted * Neurology consulted thank you for your recommendations * CT of chest/abd/pelvis with contrast: no PE, worsening covid PNA, moderate emphysema * EEG ordered * Start on keppra Time Spent With Patient Time with patient: Greater than 35 minutes Subjective Date/time seen: 04/29/21 09:15 Interval history: Patient is an 80 year old female here for COVID 19. This morning about 09:15 patient became a rapid response. At that time nursing reported that patient was unresponsive, and would not respond to pain, sternal rub, or any other stimulus. Upon examination patient was noted to
--- NOTE | 2021-04-29 10:38 | PM.IMPN ---
Progress Note: A&P Assessment and Plan (1) Pneumonia due to COVID-19 virus: Code(s): U07.1 - COVID-19; J12.82 - Pneumonia due to coronavirus disease 2019 Status: Acute Assessment and Plan: Continue remdesivir, decadron and lovenox ceftriaxone and azithromycin has been started by previous provider and will be continued at this time Inflammatory markers with an LDH of 1084, CRP of 1.3, ferritin of 191 Still requiring 45L and 60% oxygen blood gas showed metabolic and respiratory alkalosis D.Dimer is considerably higher than previous reading at 10.54 CTA NO PE, worsening covid PNA baricitinib and has been started 04/25/21 plasma [04/24/21] Abdelrahman and IS therapy Albuterol nebs She is a full code at this time. (2) Acute respiratory failure with hypoxia: Code(s): J96.01 - Acute respiratory failure with hypoxia Status: Acute Assessment and Plan: Continue supplemental o2 wean to maintain saturation greater than 90% (3) Emphysema/COPD: Code(s): J43.9 - Emphysema, unspecified Status: Acute Assessment and Plan: continue tx as above (4) Type 2 diabetes mellitus: Code(s): E11.9 - Type 2 diabetes mellitus without complications Status: Acute Assessment and Plan: Glucose on labs was 144 POCT was 185 continue 8 units with meals with sliding scale as well as Lantus at 55 units. a1c 6.6, good control at home with her home regimen worse due to acute illness and steroids continue accuchecks ACHS (5) Hypertension: Code(s): I10 - Essential (primary) hypertension Status: Acute Assessment and Plan: Last bp 154/59 continue norvasc and bystolic Trend blood pressure Adjust medications as needed (6) ALCIRA (acute kidney injury): Code(s): N17.9 - Acute kidney failure, unspecified Status: Acute Assessment and Plan: Normalized with a BUN of 26 creatinine 0.9 Trend labs Labs in a.m. (7) Hyponatremia: Code(s): E87.1 - Hypo-osmolality and hyponatremia Status: Acute Assessment and Plan: last sodium 134 will continue to trend consider IV NACL if needed (8) Hypercalcemia: Code(s): E83.52 - Hypercalcemia Status: Acute Assessment and Plan: mild, could be due to dehydration hx of breast cancer would repeat outpt after acute illness resolved. PTH pending (9) Acute metabolic encephalopathy: Code(s): G93.41 - Metabolic encephalopathy Status: Acute Assessment and Plan: episode of unresponsiveness on 04/29/21 POC glucose 185 Vital signs stable 1mg of ativan given at that time, with response CT of the brain: chronic age related findings, no acute findings noted Neurology consulted thank you for your recommendations CT of chest/abd/pelvis with contrast: no PE, worsening covid PNA, moderate emphysema EEG ordered Start on keppra Time Spent With Patient Time with patient: Greater than 35 minutes Subjective Date/time seen: 04/29/21 09:15 Interval history: Patient is an 80 year old female here for COVID 19. This morning about 09:15 patient became a rapid response. At that time nursing reported that patient was unresponsive, and would not respond to pain, sternal rub, or any other stimulus. Upon examination patient was noted to have a tremble to her bottom lip. She did not follow any commands. She also did not respond when her name was called or follow any commands. This was a new finding since the patient was able to get her medications earlier this am. Drs. Marquez, Trever, and Rachel all evaluated the patient. Vital signs were stable. Oxygenation was consistent at 97% on her current high flow settings. Blood gas read as metabolic and respiratory alkalosis with a pH of 7.529, CO2 31.2, and calculated bicarb or 25.4. PaO2 was 71.0, and saturation per the gas was 96%. Head CT and ch
[2021-04-29] MEDS: INSULIN GLARGINE (*BKC) 100 UNITS/ML 55 UNITS SUB-Q (10:58)
[2021-04-29] MEDS: ENOXAPARIN 40 MG/0.4 ML SYRINGE SUB-Q (10:58)
--- NOTE | 2021-04-29 12:02 | PCPTNOTE ---
Spoke with RN again who states pt's status has not improved at this time. Will continue to hold therapy on this date and check back tomorrow to assess whether pt will be appropriate for therapy.
[2021-04-29 12:15] LABS: Troponin I < 0.012 ng/mL (0.000-0.034)
[2021-04-29 13:01] LABS: Glucose Point of Care 154 mg/dl (65-105)
[2021-04-29] MEDS: levETIRAcetam 500MG/NACL 100ML 500 MG/100 ML BAG 400 MG IVPB ×2 (13:40→20:32)
--- NOTE | 2021-04-29 14:56 | WPDNEURCNPN ---
Assessment and Plan Additional Plan documented COVID infection the generalized deconditioning and weakness along with the encephalopathic changes treatment will be continued as such Consult date: 04/29/21 Time Seen: 12:30 HPI: Sara King is a 80 year old female has been admitted to the hospital for difficulties in breathing with ongoing history of 1. Hypertension 2. Breast cancer 3. Anemia 4. Type 2 diabetes mellitus 5. Degenerative joint disease. She was brought to the ER by the EMS for the complaints of difficulties in breathing along with the complaints of generalized weakness and fatigue and saturating on room air only 74% when she came to the ER she was started on oxygen 6 litter by the time she was seen by the physician she would definitely short of breath M difficulties in breathing along with the complains of generalized aches and pain fever chills nausea but no vomit but at the same time some diarrhea as well , as mentioned before patient had the history of diabetes mellitus and hypertension as well in addition to the history of smoking in the past 20 cigarettes per day though at present she is not smoking or drinking initial evaluation revealed her to be with temp of 99.4? respirations 28 pulse 92 and blood pressure 135/53, CBC revealed WBC is only 2.7 with hemoglobin 8.5 platelet count 1 1 1, basic metabolic panel with sodium only 124 patient was admitted to the hospital with the diagnosis of pneumonia due to COVID and was started on rimmed as severe and Decadron in addition to the throw max for Rocephin for the bacterial coverage along with the supportive care, she has continued to require the oxygen CT of the brain was obtained which revealed only chronic age-related findings but no evidence of bleed no evidence of space-occupying lesion per CT of the chest documented worsening COVID pneumonia with moderate emphysema Review of Systems Review of Systems: All systems reviewed & are unremarkable except as noted in HPI and below PMFSH Past Medical History Medical History Diabetes mellitus Hypertension Hypothyroid Surgical History Surgical History H/O skin graft Social History Social History (Updated 04/23/21 @ 20:18 by Ynes Montes MD) Smoking packs per day: 1 Smoking cigarettes per day: 20.0 Smoking status: Former smoker Tobacco type: cigarettes Second hand tobacco smoke exposure: No Smoking end date: 05/06/88 Alcohol intake: never Substance use: never Gender identity (if verbalized by the patient): Female Spiritual care concerns: No Meds Home Medications and Allergies Home Medications Medication Instructions Recorded Confirmed Type amlodipine 10 mg PO DAILY 04/02/21 04/24/21 History anastrozole 1 mg PO DAILY 04/02/21 04/24/21 History ascorbic acid (vitamin C) 1,000 mg PO BID 04/02/21 04/24/21 History aspirin [Adult Low Dose Aspirin] 81 mg PO DAILY 04/02/21 04/24/21 History biotin 10,000 mcg PO DAILY 04/02/21 04/24/21 History calcium carbonate-vit D3-min 1 tablet PO BID 04/02/21 04/24/21 History [Calcium-Vitamin D] chlorthalidone 25 mg PO DAILY 04/02/21 04/24/21 History cinnamon bark [Cinnamon] 500 mg PO DAILY 04/02/21 04/24/21 History citalopram 20 mg PO DAILY 04/02/21 04/24/21 History coQ10 (ubiquinol) 200 mg PO DAILY 04/02/21 04/24/21 History ferrous sulfate 325 mg PO BID 04/02/21 04/24/21 History furosemide 20 mg PO DAILY 04/02/21 04/24/21 History garlic [Garlique] 5 mg PO DAILY 04/02/21 04/24/21 History rnombemp-tlcw-iexmna-hyalur ac 2 tablet PO DAILY 04/02/21 04/24/21 History icosapent ethyl [Vascepa] 2 g PO BID 04/02/21 04/24/21 History insulin glargine [Lantus U-100 40 unit SUBCUT DAILY 04/02/21 04/24/21 History Insulin] levothyroxine 112 mcg PO DAILY 04/02/21 04/24/21 History lisinopril 40 mg PO BID 04/02/21 04/24/21 History lutein 20 mg PO DAILY 04/02/21 04/24/21 History
[2021-04-29 17:25] LABS: Glucose Point of Care 105 mg/dl (65-105)
[2021-04-29] MEDS: ALBUTEROL SULFATE NEB 2.5 MG/0.5 ML INH INHALATION (19:55)
[2021-04-29 19:58] LABS: Thyroid Stimulating Hormone Reflex 0.269 uIU/mL (0.465-4.68)
[2021-04-29 21:08] LABS: Glucose Point of Care 51 mg/dl (65-105)
[2021-04-29] MEDS: DEXTROSE 50% 25 GM/50 ML SYRINGE IV PUSH (21:10)
[2021-04-29] MEDS: REMDESIVIR 100 MG/NS 250 ML 100 MG/250 ML BAG 250 MG IVPB (21:14)
[2021-04-29 21:38] LABS: Free T4 Free Thyroxine Reflex 1.89 ng/dL (0.78-2.19)
[2021-04-29 22:43] LABS: Total Triiodothyronine (T3) 0.59 NG/ML (0.97-1.69)
[2021-04-29] MEDS: DEXTROSE 5%/0.45% SOD CHL 1,000 ML 50 ML IV CONT (23:20)
[2021-04-30] VITALS (23 sets, daily range): BP systolic 128–153; BP diastolic 48–99; PULSE 52–89; RESP 14–24; TEMP 36.4–37.1; O2SAT 87–95
--- NOTE | 2021-04-30 | ECHO_ITS ---
Patient Info Name: Sara King Age: 80 years : 1940 Gender: Female Ht: 65 in Wt: 161 lbs BSA: 1.85 m2 HR: 61 bpm BP: 128 / 48 mmHg Heart Rhythm: Sinus Rhythm Technical Quality: Fair Exam Date: 04/30/2021 2:19 PM Exam Location: [facility] Patient Status: Inpatient Admit Date: 04/24/2021 Staff Ordering Physician: Michel Finney [employer] Intern: Lorenza Mirza RDCS Attending Provider: Narda Barrera PA-C Referring Physician: Reg SALES; Exam Type: CA echo doppler color flow Study Info Indications R06.00 - Dyspnea, unspecified Complete two-dimensional, color flow and Doppler transthoracic echocardiogram is performed. Summary 1. Complete two-dimensional, color flow and Doppler transthoracic echocardiogram is performed. 2. Left ventricular systolic function is normal, estimated at 65-70%. 3. There is mildly increased left ventricular wall thickness. 4. The left ventricular diastolic function is grade II diastolic dysfunction. 5. Left atrial chamber dimension is moderately enlarged. 6. No significant valve disease. 7. Normal sinus rhythm. Left Ventricle Left ventricular chamber dimension is normal. Left ventricular systolic function is normal, estimated at 65-70%. There is mildly increased left ventricular wall thickness. Left ventricular septal wall motion is normal. The left ventricular diastolic function is grade II diastolic dysfunction. Right Ventricle Right ventricular chamber dimension is normal. Right ventricular systolic function is normal. Left Atria Left atrial chamber dimension is moderately enlarged. Right Atria Right atrial chamber dimension is normal. Aortic Valve The aortic valve is trileaflet. There is mild aortic valve sclerosis. There is no aortic valve stenosis. There is no aortic valve regurgitation. Pulmonic Valve The pulmonic valve is normal. There is no pulmonic valve stenosis. There is no pulmonic regurgitation. Mitral Valve The mitral valve has normal leaflets. There is no mitral valve stenosis. There is trace mitral valve regurgitation. Tricuspid Valve The tricuspid valve leaflets are normal. There is no significant tricuspid valve stenosis. There is no tricuspid valve regurgitation. No pulmonary hypertension, estimated pulmonary arterial systolic pressure is 27 mmHg. Pericardium/Pleural The pericardium appears normal. There is no pericardial effusion. Inferior Vena Cava Normal inferior vena cava with >50% collapse upon inspiration consistent with Empty right atrial pressure, 10 mmHg. Aorta The aortic root size at the sinus of Valsalva is normal. The prox ascending aorta size is normal. Left Ventricular Outflow Tract Name Value Normal LVOT 2D LVOT Diameter 2.0 cm LVOT Doppler LVOT Peak Gradient 3 mmHg LVOT Mean Gradient 1 mmHg LVOT VTI 17 cm LVOT VTI/AV VTI Ratio 0.6 LVOT Stroke Volume 56 ml LVOT CO 3.2 l/min
[2021-04-30] MEDS: ALBUTEROL SULFATE NEB 2.5 MG/0.5 ML INH INHALATION ×4 (02:00→19:23)
[2021-04-30 02:29] LABS: Glucose Point of Care 200 mg/dl (65-105)
[2021-04-30 02:29] LABS: Glucose Point of Care 131 mg/dl (65-105)
[2021-04-30 06:11] LABS: Basophils Percent Auto 0.1 % (0.2-1.2); Hematocrit 27.7 % (37.0-47.0); Hemoglobin 9.4 g/dL (12.0-15.0); Immature Granulocyte Absolute 0.34 K/mm3 (0.00-0.031); Immature Granulocyte Percent A 4.9 % (0-0.5); Lymphocytes Absolute Auto 0.25 K/mm3 (0.9-3.2); Lymphocytes Percent Auto 3.6 % (18.3-44.2); Mean Corpuscular HGB Conc 33.9 g/dl (32-36); Mean Corpuscular Hemoglobin 30.7 pg (26-34); Mean Corpuscular Volume 90.5 fl (80-100); Mean Platelet Volume 10.3 fl (7.4-10.4); Monocytes Absolute Auto 0.3 K/mm3 (0.1-0.6); Monocytes Percent Auto 4.6 % (2.6-8.5); Neutrophils Percent Auto 86.8 % (45.5-73.1); Nucleated Red Blood Cells Perc 0.3 % (0.0-0.2); Platelet Count Result 226 k/mm3 (150-375); Red Blood Count 3.06 M/mm3 (4.2-5.4); Red Cell Distribution Width 13.8 % (11.5-14.5)
[2021-04-30 06:43] LABS: Alanine Aminotransferase 27 U/L (4-35); Albumin Level 3.3 g/dL (3.5-5.1); Alkaline Phosphatase 56 U/L (38-126); Anion Gap 6 mmol/L (8-16); Aspartate Amino Transferase 48 U/L (14-36); Bilirubin,Total 0.4 mg/dL (0.2-1.3); Blood Urea Nitrogen 30 mg/dL (7-17); Carbon Dioxide 28 mmol/L (22-30); Chloride 102 mmol/L (98-107); Estimated CRCL calculation 39 ml/min; Estimated Glomerular Filt Rate 60; Glucose 132 mg/dL (65-110); Magnesium 2.3 mg/dL (1.6-2.3); Potassium 3.6 mmol/L (3.4-5.0); Sodium 136 mmol/L (137-145)
[2021-04-30 08:24] LABS: INR 1.2; Prothrombin Time 14.9 Seconds (11.1-14.7)
[2021-04-30 08:44] LABS: Glucose Point of Care 186 mg/dl (65-105)
[2021-04-30] MEDS: ENOXAPARIN 40 MG/0.4 ML SYRINGE SUB-Q (09:11)
[2021-04-30] MEDS: levETIRAcetam 500MG/NACL 100ML 500 MG/100 ML BAG 400 MG IVPB ×2 (09:12→22:46)
[2021-04-30] MEDS: LEVOTHYROXINE SODIUM INJ 100 MCG/5 ML VIAL 56 MCG IV PUSH (09:12)
--- NOTE | 2021-04-30 09:14 | P.PNIM_ITS ---
Progress Note: A&P Assessment and Plan (1) Pneumonia due to COVID-19 virus: Code(s): U07.1 - COVID-19; J12.82 - Pneumonia due to coronavirus disease 2019 Status: Acute Assessment and Plan: * Continue remdesivir, decadron and lovenox * ceftriaxone and azithromycin will be continued * Inflammatory markers with an LDH of 1084, CRP of 1.3, ferritin of 191 from 04/29/21 * Still requiring 45L and 60% oxygen, continue to wean when appropiate * will repeat blood gas * D.Dimer is considerably higher than previous reading at 10.54 (04/29/21) * CTA NO PE, worsening covid PNA * baricitinib and has been started 04/25/21 * plasma [04/24/21] * Abdelrahman and IS therapy * Albuterol nebs (2) Acute respiratory failure with hypoxia: Code(s): J96.01 - Acute respiratory failure with hypoxia Status: Acute Assessment and Plan: * Continue supplemental o2 * wean to maintain saturation greater than 90% (3) Emphysema/COPD: Code(s): J43.9 - Emphysema, unspecified Status: Acute Assessment and Plan: * continue tx as above (4) Type 2 diabetes mellitus: Code(s): E11.9 - Type 2 diabetes mellitus without complications Status: Acute Assessment and Plan: * Glucose on labs was 132 POCT was 186 * continue 8 units with meals with sliding scale as well as Lantus at 55 units. * a1c 6.6, good control at home with her home regimen * worse due to acute illness and steroids * continue accuchecks ACHS (5) Hypertension: Code(s): I10 - Essential (primary) hypertension Status: Acute Assessment and Plan: * Last bp 128/48 * continue norvasc and bystolic * Trend blood pressure * Adjust medications as needed (6) ALCIRA (acute kidney injury): Code(s): N17.9 - Acute kidney failure, unspecified Status: Acute Assessment and Plan: * Normalized with a BUN of 30 creatinine 0.9 * Trend labs * Labs in a.m. (7) Hyponatremia: Code(s): E87.1 - Hypo-osmolality and hyponatremia Status: Acute Assessment and Plan: * last sodium 136 * will continue to trend * consider IV NACL if needed (8) Hypercalcemia: Code(s): E83.52 - Hypercalcemia Status: Acute Assessment and Plan: * mild, could be due to dehydration * hx of breast cancer * would repeat outpt after acute illness resolved. * PTH pending (9) Acute metabolic encephalopathy: Code(s): G93.41 - Metabolic encephalopathy Status: Acute Assessment and Plan: * episode of unresponsiveness on 04/29/21 * glucose remains stable at 186 POC * Vital signs stable * CT of the brain: chronic age related findings, no acute findings noted * Neurology consulted thank you for your recommendations * CT of chest/abd/pelvis with contrast: no PE, worsening covid PNA, moderate emphysema * EEG pending * Start on keppra * Will repeat ABG * Get ammonia and MRI * Add neuro checks Q4HR Subjective Date/time seen: 04/30/21 09:00 Interval history: Patient is an 80-year-old female who is here for COVID-19. After episode yesterday patient is still showing signs and symptoms of altered mental status. EEG was performed this morning. Patient does respond when stimulated. I asked patient open her eyes shook her head no. She also grimaces. Patient does not exhibit any signs of a stroke such as unilateral weaknes
--- NOTE | 2021-04-30 09:14 | PM.IMPN ---
Progress Note: A&P Assessment and Plan (1) Pneumonia due to COVID-19 virus: Code(s): U07.1 - COVID-19; J12.82 - Pneumonia due to coronavirus disease 2019 Status: Acute Assessment and Plan: Continue remdesivir, decadron and lovenox ceftriaxone and azithromycin will be continued Inflammatory markers with an LDH of 1084, CRP of 1.3, ferritin of 191 from 04/29/21 Still requiring 45L and 60% oxygen, continue to wean when appropiate will repeat blood gas D.Dimer is considerably higher than previous reading at 10.54 (04/29/21) CTA NO PE, worsening covid PNA baricitinib and has been started 04/25/21 plasma [04/24/21] Abdelrahman and IS therapy Albuterol nebs (2) Acute respiratory failure with hypoxia: Code(s): J96.01 - Acute respiratory failure with hypoxia Status: Acute Assessment and Plan: Continue supplemental o2 wean to maintain saturation greater than 90% (3) Emphysema/COPD: Code(s): J43.9 - Emphysema, unspecified Status: Acute Assessment and Plan: continue tx as above (4) Type 2 diabetes mellitus: Code(s): E11.9 - Type 2 diabetes mellitus without complications Status: Acute Assessment and Plan: Glucose on labs was 132 POCT was 186 continue 8 units with meals with sliding scale as well as Lantus at 55 units. a1c 6.6, good control at home with her home regimen worse due to acute illness and steroids continue accuchecks ACHS (5) Hypertension: Code(s): I10 - Essential (primary) hypertension Status: Acute Assessment and Plan: Last bp 128/48 continue norvasc and bystolic Trend blood pressure Adjust medications as needed (6) ALCIRA (acute kidney injury): Code(s): N17.9 - Acute kidney failure, unspecified Status: Acute Assessment and Plan: Normalized with a BUN of 30 creatinine 0.9 Trend labs Labs in a.m. (7) Hyponatremia: Code(s): E87.1 - Hypo-osmolality and hyponatremia Status: Acute Assessment and Plan: last sodium 136 will continue to trend consider IV NACL if needed (8) Hypercalcemia: Code(s): E83.52 - Hypercalcemia Status: Acute Assessment and Plan: mild, could be due to dehydration hx of breast cancer would repeat outpt after acute illness resolved. PTH pending (9) Acute metabolic encephalopathy: Code(s): G93.41 - Metabolic encephalopathy Status: Acute Assessment and Plan: episode of unresponsiveness on 04/29/21 glucose remains stable at 186 POC Vital signs stable CT of the brain: chronic age related findings, no acute findings noted Neurology consulted thank you for your recommendations CT of chest/abd/pelvis with contrast: no PE, worsening covid PNA, moderate emphysema EEG pending Start on keppra Will repeat ABG Get ammonia and MRI Add neuro checks Q4HR Subjective Date/time seen: 04/30/21 09:00 Interval history: Patient is an 80-year-old female who is here for COVID-19. After episode yesterday patient is still showing signs and symptoms of altered mental status. EEG was performed this morning. Patient does respond when stimulated. I asked patient open her eyes shook her head no. She also grimaces. Patient does not exhibit any signs of a stroke such as unilateral weakness, drooping of the face, eye deviation, or any other symptoms of a stroke. According to nursing patient was lying in bed saying help me throughout the night. Today she will not say anything. She remains on high flow oxygen at 45L and 60% and is sating 95%. Labs are stable. Did put a call out to neurology for further recommendations at this time. Still awaiting EEG to be read. Will obtain an ABG, ammonia, MRI of the brain, and add neuro checks. A complete review of systems is unable to be obtained due to patients condition. Talked to the family about the condition of
--- NOTE | 2021-04-30 09:14 | WPDNEUROLOGY ---
Neurology EEG Report General Information Date of Study: 04/30/21 TEST eeg DIAGNOSIS possible seizures CONDITION OF RECORDING lethargic EEG NUMBER [id number] CLINICAL HISTORY patient is reportedly lethargic and has COVID no other history available EEG ordered to rule out the possibility of seizures EEG DESCRIPTION whole record consists of diffuse low to medium voltage 5 to 7 hertz per 2nd theta admixed with low to medium voltage 3 to 4 hertz per 2nd delta and superimposed by low-voltage 15 to 18 hertz per 2nd beta. Hyperventilation not done. Photic stimulation not done. Non paroxysmal, nonfocal, nonlateralizing IMPRESSION abnormal record due to the presence of bihemispheric theta and delta activity without evidence of any paroxysmal discharge, these abnormalities are suggestive of underlying organic or metabolic encephalopathy. clinical correlation recommended.
[2021-04-30 09:53] LABS: Ammonia < 9 umol/L (9-30)
[2021-04-30 09:57] LABS: Alveolar/Arterial O2 Gradient 335.6 mmHg; Base Excess ABG 1.7 mEq/l (+/-2.0); Fractional Inspired Oxygen 60 %; HCO3 ABG 24.5 mEq/l (22.0-26.0); Oxygen Content ABG 13.4 %vol (16.0-22.0); Oxygen Saturation ABG 92.3 % (95.0-100.0); Oxyhemoglobin 88.6 % THb (90.0-100.0); PO2 FiO2 Ratio Arterial Blood 0.95 %; Total Hemoglobin 10.7 g/dL (12.0-18.0)
[2021-04-30 09:59] LABS: Device HIGH FLOW NASAL CANN; Site Drawn RIGHT BRACHIAL; pH ABG 7.501 (7.350-7.450)
[2021-04-30 12:41] LABS: Glucose Point of Care 168 mg/dl (65-105)
[2021-04-30 17:07] LABS: Glucose Point of Care 163 mg/dl (65-105)
[2021-04-30] MEDS: DEXTROSE 5%/0.45% SOD CHL 1,000 ML 50 ML IV CONT (22:45)
[2021-04-30] MEDS: REMDESIVIR 100 MG/NS 250 ML 100 MG/250 ML BAG 250 MG IVPB (22:46)
[2021-04-30 23:49] LABS: Glucose Point of Care 133 mg/dl (65-105)
[2021-05-01] VITALS (19 sets, daily range): BP systolic 131–148; BP diastolic 53–71; PULSE 54–78; RESP 14–26; TEMP 36.1–36.4; O2SAT 91–99; BMI 27.2
[2021-05-01] MEDS: ALBUTEROL SULFATE NEB 2.5 MG/0.5 ML INH INHALATION ×3 (02:03→21:31)
[2021-05-01] MEDS: LEVOTHYROXINE SODIUM INJ 100 MCG/5 ML VIAL 56 MCG IV PUSH (04:53)
[2021-05-01 06:31] LABS: Basophils Percent Auto 0.1 % (0.2-1.2); Hematocrit 27.7 % (37.0-47.0); Hemoglobin 9.2 g/dL (12.0-15.0); Immature Granulocyte Absolute 0.27 K/mm3 (0.00-0.031); Immature Granulocyte Percent A 3.5 % (0-0.5); Lymphocytes Absolute Auto 0.19 K/mm3 (0.9-3.2); Lymphocytes Percent Auto 2.5 % (18.3-44.2); Mean Corpuscular HGB Conc 33.2 g/dl (32-36); Mean Corpuscular Volume 90.2 fl (80-100); Mean Platelet Volume 10.4 fl (7.4-10.4); Monocytes Absolute Auto 0.3 K/mm3 (0.1-0.6); Monocytes Percent Auto 3.8 % (2.6-8.5); Neutrophils Absolute Auto 6.9 K/mm3 (1.3-6.7); Neutrophils Percent Auto 90.1 % (45.5-73.1); Nucleated Red Blood Cells Perc 0.3 % (0.0-0.2); Platelet Count Result 239 k/mm3 (150-375); Red Blood Count 3.07 M/mm3 (4.2-5.4); Red Cell Distribution Width 13.9 % (11.5-14.5); White Blood Count 7.7 K/mm3 (4.5-10.0)
[2021-05-01 06:46] LABS: Alanine Aminotransferase 25 U/L (4-35); Albumin Level 3.2 g/dL (3.5-5.1); Alkaline Phosphatase 63 U/L (38-126); Anion Gap 4 mmol/L (8-16); Aspartate Amino Transferase 47 U/L (14-36); Bilirubin,Total 0.3 mg/dL (0.2-1.3); Blood Urea Nitrogen 25 mg/dL (7-17); CRP 0.9 mg/dL (<1.0); Calcium 9.2 mg/dL (8.4-10.2); Carbon Dioxide 26 mmol/L (22-30); Chloride 102 mmol/L (98-107); Estimated CRCL calculation 55 ml/min; Estimated Glomerular Filt Rate > 60; Glucose 240 mg/dL (65-110); Lactate Dehydrogenase 955 U/L (313-618); Magnesium 2.2 mg/dL (1.6-2.3); Sodium 132 mmol/L (137-145)
[2021-05-01 07:03] LABS: INR 1.2; Prothrombin Time 15.1 Seconds (11.1-14.7)
[2021-05-01 08:54] LABS: Platelet Estimate Adequate (Adequate)
[2021-05-01 08:55] LABS: Acanthocytes 1+ (NORMAL); Ovalocytes 1+ (NORMAL); Poikilocytosis 2+ (NORMAL)
[2021-05-01 09:09] LABS: Glucose Point of Care 261 mg/dl (65-105)
[2021-05-01] MEDS: levETIRAcetam 500MG/NACL 100ML 500 MG/100 ML BAG 400 MG IVPB (09:15)
[2021-05-01] MEDS: ENOXAPARIN 40 MG/0.4 ML SYRINGE SUB-Q (09:16)
--- NOTE | 2021-05-01 11:18 | P.PNIM_ITS ---
Progress Note: A&P Assessment and Plan (1) Pneumonia due to COVID-19 virus: Code(s): U07.1 - COVID-19; J12.82 - Pneumonia due to coronavirus disease 2019 Status: Acute Assessment and Plan: * Continue remdesivir, decadron and lovenox * ceftriaxone and azithromycin will DC for now since bacterial infection is unlikely and she has been on them since admission * Inflammatory markers with an LDH of 955, CRP of 0.9, ferritin of 154 from 05/01/21 * oxygen has been weaned to 8L high flow cannula, continue to wean * D.Dimer is considerably higher than previous reading at 10.54 (04/29/21) * CTA NO PE, worsening covid PNA * baricitinib and has been started 04/25/21, placed on hold due to lab values * plasma [04/24/21] * Abdelrahman and IS therapy * Albuterol nebs (2) Acute respiratory failure with hypoxia: Code(s): J96.01 - Acute respiratory failure with hypoxia Status: Acute Assessment and Plan: * Continue supplemental o2 * wean to maintain saturation greater than 90% (3) Emphysema/COPD: Code(s): J43.9 - Emphysema, unspecified Status: Acute Assessment and Plan: * continue tx as above (4) Type 2 diabetes mellitus: Code(s): E11.9 - Type 2 diabetes mellitus without complications Status: Acute Assessment and Plan: * Glucose on labs was 240 POCT was 261 * continue 8 units with meals with sliding scale as well as Lantus at 55 units placed on hold at this time * a1c 6.6, good control at home with her home regimen * trend very closely due to poor PO intake * continue accuchecks ACHS (5) Hypertension: Code(s): I10 - Essential (primary) hypertension Status: Acute Assessment and Plan: * Last bp 145/57 * continue norvasc and bystolic * Trend blood pressure * Adjust medications as needed (6) ALCIRA (acute kidney injury): Code(s): N17.9 - Acute kidney failure, unspecified Status: Acute Assessment and Plan: * Normalized with a BUN of 25 creatinine 0.70 * Trend labs * Labs in a.m. (7) Hyponatremia: Code(s): E87.1 - Hypo-osmolality and hyponatremia Status: Acute Assessment and Plan: * last sodium 137 * will continue to trend * consider IV NACL if needed (8) Hypercalcemia: Code(s): E83.52 - Hypercalcemia Status: Acute Assessment and Plan: * mild, could be due to dehydration * hx of breast cancer * would repeat outpt after acute illness resolved. * PTH pending (9) Acute metabolic encephalopathy: Code(s): G93.41 - Metabolic encephalopathy Status: Acute Assessment and Plan: * patient responds to stimulus pain and verbal * episode of unresponsiveness on 04/29/21 * glucose remains stable at 261 POC * Vital signs stable * CT of the brain: chronic age related findings, no acute findings noted 04/29/21 * Neurology consulted thank you for your recommendations * CT of chest/abd/pelvis with contrast: no PE, worsening covid PNA, moderate emphysema * EEG showed some slowing of the theta and delta waves * elizabeth stated 04/29/21 * Get ammonia <9 * MRI- placed on hold due to oxygen demands * continue neuro checks Q4HR Subjective Date/time seen: 05/01/21 11:18 Interval history: Patient is an 80-year-old female who is here for COVID-19. Patient is a bit more responsive today. She will not talk
--- NOTE | 2021-05-01 11:18 | PM.IMPN ---
Progress Note: A&P Assessment and Plan (1) Pneumonia due to COVID-19 virus: Code(s): U07.1 - COVID-19; J12.82 - Pneumonia due to coronavirus disease 2019 Status: Acute Assessment and Plan: Continue remdesivir, decadron and lovenox ceftriaxone and azithromycin will DC for now since bacterial infection is unlikely and she has been on them since admission Inflammatory markers with an LDH of 955, CRP of 0.9, ferritin of 154 from 05/01/21 oxygen has been weaned to 8L high flow cannula, continue to wean D.Dimer is considerably higher than previous reading at 10.54 (04/29/21) CTA NO PE, worsening covid PNA baricitinib and has been started 04/25/21, placed on hold due to lab values plasma [04/24/21] Abdelrahman and IS therapy Albuterol nebs (2) Acute respiratory failure with hypoxia: Code(s): J96.01 - Acute respiratory failure with hypoxia Status: Acute Assessment and Plan: Continue supplemental o2 wean to maintain saturation greater than 90% (3) Emphysema/COPD: Code(s): J43.9 - Emphysema, unspecified Status: Acute Assessment and Plan: continue tx as above (4) Type 2 diabetes mellitus: Code(s): E11.9 - Type 2 diabetes mellitus without complications Status: Acute Assessment and Plan: Glucose on labs was 240 POCT was 261 continue 8 units with meals with sliding scale as well as Lantus at 55 units placed on hold at this time a1c 6.6, good control at home with her home regimen trend very closely due to poor PO intake continue accuchecks ACHS (5) Hypertension: Code(s): I10 - Essential (primary) hypertension Status: Acute Assessment and Plan: Last bp 145/57 continue norvasc and bystolic Trend blood pressure Adjust medications as needed (6) ALCIRA (acute kidney injury): Code(s): N17.9 - Acute kidney failure, unspecified Status: Acute Assessment and Plan: Normalized with a BUN of 25 creatinine 0.70 Trend labs Labs in a.m. (7) Hyponatremia: Code(s): E87.1 - Hypo-osmolality and hyponatremia Status: Acute Assessment and Plan: last sodium 137 will continue to trend consider IV NACL if needed (8) Hypercalcemia: Code(s): E83.52 - Hypercalcemia Status: Acute Assessment and Plan: mild, could be due to dehydration hx of breast cancer would repeat outpt after acute illness resolved. PTH pending (9) Acute metabolic encephalopathy: Code(s): G93.41 - Metabolic encephalopathy Status: Acute Assessment and Plan: patient responds to stimulus pain and verbal episode of unresponsiveness on 04/29/21 glucose remains stable at [address]ital signs stable CT of the brain: chronic age related findings, no acute findings noted 04/29/21 Neurology consulted thank you for your recommendations CT of chest/abd/pelvis with contrast: no PE, worsening covid PNA, moderate emphysema EEG showed some slowing of the theta and delta waves elizabeth stated 04/29/21 Get ammonia <9 MRI- placed on hold due to oxygen demands continue neuro checks Q4HR Subjective Date/time seen: 05/01/21 11:18 Interval history: Patient is an 80-year-old female who is here for COVID-19. Patient is a bit more responsive today. She will not talk to me or open her eyes, but she will shake her head no when requests are made. Pupils are still round and reactive. Mouth is moist with no lesions. She does respond to stimulus to her feet and pain. Oxygen was also switched from arvo to high low cannula. She did respond well to that at the last assessment she was sating 93% on 8L. Labs remain stable today. Glucose is also stable at 240. At this point I am not sure if the patient is not following commands to be difficult or if she really does not know what is going on. However, a complete review of symptoms has not been obtain
--- NOTE | 2021-05-01 11:29 | WPDNEURCNPN ---
Assessment and Plan Additional Plan plan is to continue the treatment as such Consult date: 05/08/21 Time Seen: 11:00 HPI: Sara King is a 80 year old femaleAdmitted to the hospital for the complaints of difficulties in breathing in addition to the ongoing history of 1. Hypertension 2. Carcinoma of the breast 3. Iron deficiency anemia 4. Type 2 diabetes mellitus and 5. Degenerative joint disease patient brought to the emergency room for the complaints of difficulties in breathing saturating on the room air only 74% subsequently she was placed on oxygen on in the Emergency Room 6L upon arrival her CT of the chest was negative for acute pulmonary embolism but diffuse pulmonary infiltrates were noted along with the bullous disease of the lung on chest x-ray she was complaining or difficulties in breathing cough generalized malaise aches and pains, past history was consistent with diabetes mellitus hypertension hypothyroidism is smoking 1 pack per day but former smoker initial examination revealed her to have no focal neurological deficit and she was admitted to the hospital for the COVID pneumonia treated with the REM discs fear, Decadron, Zithromax and Rocephin for bacterial coverage Review of Systems Review of Systems: All systems reviewed & are unremarkable except as noted in HPI and below PMFSH Past Medical History Medical History Diabetes mellitus Hypertension Hypothyroid Surgical History Surgical History H/O skin graft Social History Social History Smoking packs per day: 1 Smoking cigarettes per day: 20.0 Smoking status: Former smoker Tobacco type: cigarettes Second hand tobacco smoke exposure: No Smoking end date: 05/06/88 Alcohol intake: never Substance use: never Gender identity (if verbalized by the patient): Female Spiritual care concerns: No Meds Home Medications and Allergies Home Medications Medication Instructions Recorded Confirmed Type amlodipine 10 mg PO DAILY 04/02/21 04/24/21 History anastrozole 1 mg PO DAILY 04/02/21 04/24/21 History ascorbic acid (vitamin C) 1,000 mg PO BID 04/02/21 04/24/21 History aspirin [Adult Low Dose Aspirin] 81 mg PO DAILY 04/02/21 04/24/21 History biotin 10,000 mcg PO DAILY 04/02/21 04/24/21 History calcium carbonate-vit D3-min 1 tablet PO BID 04/02/21 04/24/21 History [Calcium-Vitamin D] chlorthalidone 25 mg PO DAILY 04/02/21 04/24/21 History cinnamon bark [Cinnamon] 500 mg PO DAILY 04/02/21 04/24/21 History citalopram 20 mg PO DAILY 04/02/21 04/24/21 History coQ10 (ubiquinol) 200 mg PO DAILY 04/02/21 04/24/21 History ferrous sulfate 325 mg PO BID 04/02/21 04/24/21 History furosemide 20 mg PO DAILY 04/02/21 04/24/21 History garlic [Garlique] 5 mg PO DAILY 04/02/21 04/24/21 History vucklnjl-pndo-uhxhuf-hyalur ac 2 tablet PO DAILY 04/02/21 04/24/21 History icosapent ethyl [Vascepa] 2 g PO BID 04/02/21 04/24/21 History insulin glargine [Lantus U-100 40 unit SUBCUT DAILY 04/02/21 04/24/21 History Insulin] levothyroxine 112 mcg PO DAILY 04/02/21 04/24/21 History lisinopril 40 mg PO BID 04/02/21 04/24/21 History lutein 20 mg PO DAILY 04/02/21 04/24/21 History metformin 500 mg PO BID 04/02/21 04/24/21 History jrhdyrybcwwi-vmpqsozk-ntpfwp 1 tablet PO DAILY 04/02/21 04/24/21 History [Centrum Silver] nebivolol [Bystolic] 40 mg PO DAILY 04/02/21 04/24/21 History rosuvastatin 20 mg PO DAILY 04/02/21 04/24/21 History vitamin B complex [B 1 tablet PO DAILY 04/02/21 04/24/21 History Complex-Vitamin B12] dulaglutide [Trulicity] 3 mg SUBCUT WEEKLY 04/24/21 04/24/21 History potassium chloride 10 meq PO DAILY 04/24/21 04/24/21 History Allergies Allergy/AdvReac Type Severity Reaction Status Date / Time Penicillins Allergy Unknown Verified 06/25/20 13:32 Sulfa (Sulfonamide Allergy Unknown Verified 06/25
--- NOTE | 2021-05-01 11:50 | PCOTNOTE ---
Attempted to see patient, however patient declined. Pt kept eyes closed and reported being too tired.
[2021-05-01 13:45] LABS: Glucose Point of Care 236 mg/dl (65-105)
[2021-05-01 17:19] LABS: Glucose Point of Care 237 mg/dl (65-105)
[2021-05-01 20:28] LABS: Glucose Point of Care 233 mg/dl (65-105)
[2021-05-01] MEDS: DEXTROSE 5%/0.45% SOD CHL 1,000 ML 50 ML IV CONT (23:00)
[2021-05-02] VITALS (22 sets, daily range): BP systolic 117–137; BP diastolic 48–68; PULSE 56–92; RESP 16–24; TEMP 35.6–36.6; O2SAT 93–97
[2021-05-02] MEDS: DEXAMETHASONE 2 MG TABLET 6 MG PO (01:07)
[2021-05-02] MEDS: levETIRAcetam 500 MG TABLET PO ×3 (01:07→21:51)
[2021-05-02] MEDS: ALBUTEROL SULFATE NEB 2.5 MG/0.5 ML INH INHALATION ×4 (01:58→20:15)
[2021-05-02 05:48] LABS: Basophils Percent Auto 0.2 % (0.2-1.2); Hematocrit 29.8 % (37.0-47.0); Hemoglobin 9.6 g/dL (12.0-15.0); Immature Granulocyte Absolute 0.28 K/mm3 (0.00-0.031); Immature Granulocyte Percent A 2.5 % (0-0.5); Lymphocytes Absolute Auto 0.17 K/mm3 (0.9-3.2); Lymphocytes Percent Auto 1.5 % (18.3-44.2); Mean Corpuscular HGB Conc 32.2 g/dl (32-36); Mean Corpuscular Hemoglobin 30.2 pg (26-34); Mean Corpuscular Volume 93.7 fl (80-100); Mean Platelet Volume 10.4 fl (7.4-10.4); Monocytes Absolute Auto 0.7 K/mm3 (0.1-0.6); Monocytes Percent Auto 5.8 % (2.6-8.5); Neutrophils Absolute Auto 10.3 K/mm3 (1.3-6.7); Nucleated Red Blood Cells Perc 0.4 % (0.0-0.2); Platelet Count Result 221 k/mm3 (150-375); Red Blood Count 3.18 M/mm3 (4.2-5.4); Red Cell Distribution Width 14.1 % (11.5-14.5); White Blood Count 11.4 K/mm3 (4.5-10.0)
[2021-05-02 06:02] LABS: Alanine Aminotransferase 22 U/L (4-35); Alkaline Phosphatase 63 U/L (38-126); Anion Gap 7 mmol/L (8-16); Aspartate Amino Transferase 45 U/L (14-36); Bilirubin,Total 0.6 mg/dL (0.2-1.3); Blood Urea Nitrogen 22 mg/dL (7-17); Calcium 8.9 mg/dL (8.4-10.2); Carbon Dioxide 21 mmol/L (22-30); Chloride 106 mmol/L (98-107); Estimated CRCL calculation 55 ml/min; Estimated Glomerular Filt Rate > 60; Glucose 193 mg/dL (65-110); Potassium 4.1 mmol/L (3.4-5.0); Sodium 134 mmol/L (137-145)
[2021-05-02] MEDS: LEVOTHYROXINE SODIUM 112 MCG TABLET PO (06:56)
[2021-05-02 08:00] LABS: INR 1.2; Prothrombin Time 15.3 Seconds (11.1-14.7)
[2021-05-02 09:30] LABS: Glucose Point of Care 264 mg/dl (65-105)
[2021-05-02] MEDS: CITALOPRAM HYDROBROMIDE 20 MG TABLET PO (09:40)
[2021-05-02] MEDS: amLODIPine BESYLATE 5 MG TABLET 10 MG PO (09:40)
[2021-05-02] MEDS: polyethylene glycoL 3350 17 GM POWD.PACK PO (09:41)
[2021-05-02] MEDS: NEBIVOLOL HCL 5 MG TABLET 40 MG PO (09:41)
[2021-05-02] MEDS: ENOXAPARIN 40 MG/0.4 ML SYRINGE SUB-Q (09:41)
[2021-05-02 13:12] LABS: Glucose Point of Care > 500 mg/dl (65-105)
[2021-05-02] MEDS: INSULIN ASPART (*BKC) 100 UNITS/ML 8 UNITS SUB-Q ×3 (13:42→17:21)
[2021-05-02] MEDS: INSULIN ASPART (*BKC) 100 UNITS/ML SUB-Q ×3 (13:42→17:20)
[2021-05-02] MEDS: INSULIN GLARGINE (*BKC) 100 UNITS/ML 55 UNITS SUB-Q (13:44)
--- NOTE | 2021-05-02 16:09 | P.PNIM_ITS ---
Progress Note: A&P Assessment and Plan (1) Pneumonia due to COVID-19 virus: Code(s): U07.1 - COVID-19; J12.82 - Pneumonia due to coronavirus disease 2019 Status: Acute Assessment and Plan: * Continue remdesivir, decadron and lovenox * Inflammatory markers with an LDH of 955, CRP of 0.9, ferritin of 154 from 05/01/21 * oxygen had to be weaned back up as she was placed back on airvo for better oxygenation * D.Dimer is considerably higher than previous reading at 10.54 (04/29/21) * CTA NO PE, worsening covid PNA * baricitinib and has been started 04/25/21, placed on hold 05/01/21 due to lab values and mental status * plasma [04/24/21] * Abdelrahman and IS therapy * Albuterol nebs * Lasix 40mg IV once (2) Acute respiratory failure with hypoxia: Code(s): J96.01 - Acute respiratory failure with hypoxia Status: Acute Assessment and Plan: * Continue supplemental o2 * wean to maintain saturation greater than 90% (3) Emphysema/COPD: Code(s): J43.9 - Emphysema, unspecified Status: Acute Assessment and Plan: * continue tx as above (4) Type 2 diabetes mellitus: Code(s): E11.9 - Type 2 diabetes mellitus without complications Status: Acute Assessment and Plan: * Glucose on labs was 193 POCT was 264 * continue 8 units with meals with sliding scale as well as Lantus at 55 units * a1c 6.6, good control at home with her home regimen * trend very closely due to poor PO intake * continue accuchecks ACHS (5) Hypertension: Code(s): I10 - Essential (primary) hypertension Status: Acute Assessment and Plan: * Last bp 129/68 * continue norvasc and bystolic * Trend blood pressure * Adjust medications as needed (6) ALCIRA (acute kidney injury): Code(s): N17.9 - Acute kidney failure, unspecified Status: Acute Assessment and Plan: * Normalized with a BUN of 22 creatinine 0.70 * Trend labs * Labs in a.m. (7) Hyponatremia: Code(s): E87.1 - Hypo-osmolality and hyponatremia Status: Acute Assessment and Plan: * last sodium 134 * will continue to trend * consider IV NACL if needed (8) Hypercalcemia: Code(s): E83.52 - Hypercalcemia Status: Acute Assessment and Plan: * mild, could be due to dehydration * hx of breast cancer * would repeat outpt after acute illness resolved. * PTH pending (9) Acute metabolic encephalopathy: Code(s): G93.41 - Metabolic encephalopathy Status: Acute Assessment and Plan: * Patient alert and oriented sitting up eating a tray * episode of unresponsiveness on 04/29/21 * glucose remains stable at 261 POC * Vital signs stable * CT of the brain: chronic age related findings, no acute findings noted 04/29/21 * Neurology consulted thank you for your recommendations * CT of chest/abd/pelvis with contrast: no PE, worsening covid PNA, moderate emphysema * EEG showed some slowing of the theta and delta waves * elizabeth stated 04/29/21 * Get ammonia <9 * MRI- placed on hold due to oxygen demands * continue neuro checks Q4HR Subjective Date/time seen: 05/02/21 14:30 Interval history: Patient is a 80 year old female here for covid. She was so much better today, she was sitting up in bed eating her tray. She stated that she is just not hungry and asked if she really needed to eat. I
--- NOTE | 2021-05-02 16:09 | PM.IMPN ---
Progress Note: A&P Assessment and Plan (1) Pneumonia due to COVID-19 virus: Code(s): U07.1 - COVID-19; J12.82 - Pneumonia due to coronavirus disease 2019 Status: Acute Assessment and Plan: Continue remdesivir, decadron and lovenox Inflammatory markers with an LDH of 955, CRP of 0.9, ferritin of 154 from 05/01/21 oxygen had to be weaned back up as she was placed back on airvo for better oxygenation D.Dimer is considerably higher than previous reading at 10.54 (04/29/21) CTA NO PE, worsening covid PNA baricitinib and has been started 04/25/21, placed on hold 05/01/21 due to lab values and mental status plasma [04/24/21] Abdelrahman and IS therapy Albuterol nebs Lasix 40mg IV once (2) Acute respiratory failure with hypoxia: Code(s): J96.01 - Acute respiratory failure with hypoxia Status: Acute Assessment and Plan: Continue supplemental o2 wean to maintain saturation greater than 90% (3) Emphysema/COPD: Code(s): J43.9 - Emphysema, unspecified Status: Acute Assessment and Plan: continue tx as above (4) Type 2 diabetes mellitus: Code(s): E11.9 - Type 2 diabetes mellitus without complications Status: Acute Assessment and Plan: Glucose on labs was 193 POCT was 264 continue 8 units with meals with sliding scale as well as Lantus at 55 units a1c 6.6, good control at home with her home regimen trend very closely due to poor PO intake continue accuchecks ACHS (5) Hypertension: Code(s): I10 - Essential (primary) hypertension Status: Acute Assessment and Plan: Last bp 129/68 continue norvasc and bystolic Trend blood pressure Adjust medications as needed (6) ALCIRA (acute kidney injury): Code(s): N17.9 - Acute kidney failure, unspecified Status: Acute Assessment and Plan: Normalized with a BUN of 22 creatinine 0.70 Trend labs Labs in a.m. (7) Hyponatremia: Code(s): E87.1 - Hypo-osmolality and hyponatremia Status: Acute Assessment and Plan: last sodium 134 will continue to trend consider IV NACL if needed (8) Hypercalcemia: Code(s): E83.52 - Hypercalcemia Status: Acute Assessment and Plan: mild, could be due to dehydration hx of breast cancer would repeat outpt after acute illness resolved. PTH pending (9) Acute metabolic encephalopathy: Code(s): G93.41 - Metabolic encephalopathy Status: Acute Assessment and Plan: Patient alert and oriented sitting up eating a tray episode of unresponsiveness on 04/29/21 glucose remains stable at [address] signs stable [address] of the brain: chronic age related findings, no acute findings noted 04/29/21 Neurology consulted thank you for your recommendations CT of chest/abd/pelvis with contrast: no PE, worsening covid PNA, moderate emphysema EEG showed some slowing of the theta and delta waves elizabeth stated 04/29/21 Get ammonia <9 MRI- placed on hold due to oxygen demands continue neuro checks Q4HR Subjective Date/time seen: 05/02/21 14:30 Interval history: Patient is a 80 year old female here for covid. She was so much better today, she was sitting up in bed eating her tray. She stated that she is just not hungry and asked if she really needed to eat. I told her that she has not really eaten in a few days. I did ask if she remembered me, which she said yes. She also stated that she is feeling better. She denies chest pain, shortness of breath, weakness, fatigue, fevers, chills, and headache. Updated the family at 1630. All questions were answered and verbalized understanding of current plan and treatment Exam Const: General: comfortable, well developed, ill appearing acutely, lethargic and patient obtunded Nutritional Appearance: average body habitus Orientation/consciousness: patient obtunded and lethargic Limit
[2021-05-02 16:15] LABS: Glucose Point of Care 338 mg/dl (65-105)
[2021-05-02 20:05] LABS: Glucose Point of Care 273 mg/dl (65-105)
[2021-05-03] VITALS (25 sets, daily range): BP systolic 119–137; BP diastolic 41–60; PULSE 54–73; RESP 14–28; TEMP 36.1–37.1; O2SAT 87–100
[2021-05-03] MEDS: ALBUTEROL SULFATE NEB 2.5 MG/0.5 ML INH INHALATION ×4 (03:15→20:25)
[2021-05-03] MEDS: LEVOTHYROXINE SODIUM INJ 100 MCG/5 ML VIAL 56 MCG IV PUSH (05:42)
[2021-05-03 05:44] LABS: Basophils Percent Auto 0.1 % (0.2-1.2); Hematocrit 26.8 % (37.0-47.0); Immature Granulocyte Absolute 0.37 K/mm3 (0.00-0.031); Immature Granulocyte Percent A 4.2 % (0-0.5); Lymphocytes Absolute Auto 0.22 K/mm3 (0.9-3.2); Lymphocytes Percent Auto 2.5 % (18.3-44.2); Mean Corpuscular HGB Conc 33.6 g/dl (32-36); Mean Corpuscular Hemoglobin 30.5 pg (26-34); Mean Corpuscular Volume 90.8 fl (80-100); Mean Platelet Volume 10.2 fl (7.4-10.4); Monocytes Absolute Auto 0.3 K/mm3 (0.1-0.6); Monocytes Percent Auto 3.1 % (2.6-8.5); Neutrophils Percent Auto 90.1 % (45.5-73.1); Nucleated Red Blood Cells Perc 0.3 % (0.0-0.2); Platelet Count Result 222 k/mm3 (150-375); Red Blood Count 2.95 M/mm3 (4.2-5.4); Red Cell Distribution Width 14.2 % (11.5-14.5); White Blood Count 8.8 K/mm3 (4.5-10.0)
[2021-05-03 06:12] LABS: Alanine Aminotransferase 21 U/L (4-35); Albumin Level 2.8 g/dL (3.5-5.1); Alkaline Phosphatase 63 U/L (38-126); Anion Gap 5 mmol/L (8-16); Aspartate Amino Transferase 36 U/L (14-36); Bilirubin,Total 0.3 mg/dL (0.2-1.3); Blood Urea Nitrogen 27 mg/dL (7-17); CRP 3.4 mg/dL (<1.0); Carbon Dioxide 25 mmol/L (22-30); Chloride 106 mmol/L (98-107); Estimated CRCL calculation 49 ml/min; Estimated Glomerular Filt Rate > 60; Glucose 207 mg/dL (65-110); Magnesium 2.5 mg/dL (1.6-2.3); Potassium 4.2 mmol/L (3.4-5.0); Sodium 136 mmol/L (137-145)
[2021-05-03 06:47] LABS: D Dimer 9.64 ug/mL (<0.48)
[2021-05-03 08:34] LABS: Glucose Point of Care 230 mg/dl (65-105)
[2021-05-03] MEDS: INSULIN ASPART (*BKC) 100 UNITS/ML 8 UNITS SUB-Q ×3 (08:52→17:27)
[2021-05-03] MEDS: INSULIN ASPART (*BKC) 100 UNITS/ML SUB-Q ×3 (08:53→17:28)
[2021-05-03] MEDS: NEBIVOLOL HCL 5 MG TABLET 40 MG PO (08:54)
[2021-05-03] MEDS: levETIRAcetam 500 MG TABLET PO ×2 (08:56→19:49)
[2021-05-03] MEDS: CITALOPRAM HYDROBROMIDE 20 MG TABLET PO (08:56)
[2021-05-03] MEDS: amLODIPine BESYLATE 5 MG TABLET 10 MG PO (08:56)
[2021-05-03] MEDS: ENOXAPARIN 40 MG/0.4 ML SYRINGE SUB-Q (08:56)
[2021-05-03] MEDS: polyethylene glycoL 3350 17 GM POWD.PACK PO (08:56)
--- NOTE | 2021-05-03 09:21 | P.PNIM_ITS ---
Progress Note: A&P Assessment and Plan (1) Pneumonia due to COVID-19 virus: Code(s): U07.1 - COVID-19; J12.82 - Pneumonia due to coronavirus disease 2019 Status: Acute Assessment and Plan: * Continue remdesivir, decadron and lovenox * Inflammatory markers CRP of 3.4 05/03/21 * oxygen had to be weaned back up as she was placed back on airvo for better oxygenation * D.Dimer is trending down at 9.64 (05/03/21) * CTA NO PE, worsening covid PNA * baricitinib and has been started 04/25/21, placed on hold 05/01/21 due to lab values and mental status * plasma [04/24/21] * Abdelrahman and IS therapy * Albuterol nebs * Lasix 40mg IV once (2) Acute respiratory failure with hypoxia: Code(s): J96.01 - Acute respiratory failure with hypoxia Status: Acute Assessment and Plan: * Continue supplemental o2 * wean to maintain saturation greater than 90% (3) Emphysema/COPD: Code(s): J43.9 - Emphysema, unspecified Status: Acute Assessment and Plan: * continue tx as above (4) Type 2 diabetes mellitus: Code(s): E11.9 - Type 2 diabetes mellitus without complications Status: Acute Assessment and Plan: * Glucose on labs was 207 POCT was 230 * continue 8 units with meals with sliding scale as well as Lantus at 55 units * a1c 6.6, good control at home with her home regimen * trend very closely due to poor PO intake * continue accuchecks ACHS (5) Hypertension: Code(s): I10 - Essential (primary) hypertension Status: Acute Assessment and Plan: * Last bp 137/59 * continue norvasc and bystolic * Trend blood pressure * Adjust medications as needed (6) ALCIRA (acute kidney injury): Code(s): N17.9 - Acute kidney failure, unspecified Status: Acute Assessment and Plan: * Normalized with a BUN of 27 creatinine 0.80 * Trend labs * Labs in a.m. (7) Hyponatremia: Code(s): E87.1 - Hypo-osmolality and hyponatremia Status: Acute Assessment and Plan: * last sodium 136 * will continue to trend * Seems to be resolved at this time (8) Hypercalcemia: Code(s): E83.52 - Hypercalcemia Status: Acute Assessment and Plan: * mild, could be due to dehydration * hx of breast cancer * would repeat outpt after acute illness resolved. * PTH pending (9) Acute metabolic encephalopathy: Code(s): G93.41 - Metabolic encephalopathy Status: Acute Assessment and Plan: * Patient alert and oriented sitting up eating a tray * episode of unresponsiveness on 04/29/21 * glucose remains stable at 448 POC * Vital signs stable * CT of the brain: chronic age related findings, no acute findings noted 04/29/21 * Neurology consulted thank you for your recommendations * CT of chest/abd/pelvis with contrast: no PE, worsening covid PNA, moderate emphysema * EEG showed some slowing of the theta and delta waves * elizabeth stated 04/29/21 * Get ammonia <9 * MRI- placed on hold due to oxygen demands * continue neuro checks Q4HR Time Spent With Patient Time with patient: Greater than 35 minutes Subjective Date/time seen: 05/03/21 09:21 Interval history: 05/02/21 9650 Patient is a 80 year old female here for covid. She was so much better today, she was sitting up in bed eating her tray. She stated that she is just not hungry and asked
--- NOTE | 2021-05-03 09:21 | PM.IMPN ---
Progress Note: A&P Assessment and Plan (1) Pneumonia due to COVID-19 virus: Code(s): U07.1 - COVID-19; J12.82 - Pneumonia due to coronavirus disease 2019 Status: Acute Assessment and Plan: Continue remdesivir, decadron and lovenox Inflammatory markers CRP of 3.4 05/03/21 oxygen had to be weaned back up as she was placed back on airvo for better oxygenation D.Dimer is trending down at 9.64 (05/03/21) CTA NO PE, worsening covid PNA baricitinib and has been started 04/25/21, placed on hold 05/01/21 due to lab values and mental status plasma [04/24/21] Abdelrahman and IS therapy Albuterol nebs Lasix 40mg IV once (2) Acute respiratory failure with hypoxia: Code(s): J96.01 - Acute respiratory failure with hypoxia Status: Acute Assessment and Plan: Continue supplemental o2 wean to maintain saturation greater than 90% (3) Emphysema/COPD: Code(s): J43.9 - Emphysema, unspecified Status: Acute Assessment and Plan: continue tx as above (4) Type 2 diabetes mellitus: Code(s): E11.9 - Type 2 diabetes mellitus without complications Status: Acute Assessment and Plan: Glucose on labs was 207 POCT was 230 continue 8 units with meals with sliding scale as well as Lantus at 55 units a1c 6.6, good control at home with her home regimen trend very closely due to poor PO intake continue accuchecks ACHS (5) Hypertension: Code(s): I10 - Essential (primary) hypertension Status: Acute Assessment and Plan: Last bp 137/59 continue norvasc and bystolic Trend blood pressure Adjust medications as needed (6) ALCIRA (acute kidney injury): Code(s): N17.9 - Acute kidney failure, unspecified Status: Acute Assessment and Plan: Normalized with a BUN of 27 creatinine 0.80 Trend labs Labs in a.m. (7) Hyponatremia: Code(s): E87.1 - Hypo-osmolality and hyponatremia Status: Acute Assessment and Plan: last sodium 136 will continue to trend Seems to be resolved at this time (8) Hypercalcemia: Code(s): E83.52 - Hypercalcemia Status: Acute Assessment and Plan: mild, could be due to dehydration hx of breast cancer would repeat outpt after acute illness resolved. PTH pending (9) Acute metabolic encephalopathy: Code(s): G93.41 - Metabolic encephalopathy Status: Acute Assessment and Plan: Patient alert and oriented sitting up eating a tray episode of unresponsiveness on 04/29/21 glucose remains stable at 448 POC Vital signs stable CT of the brain: chronic age related findings, no acute findings noted 04/29/21 Neurology consulted thank you for your recommendations CT of chest/abd/pelvis with contrast: no PE, worsening covid PNA, moderate emphysema EEG showed some slowing of the theta and delta waves elizabeth stated 04/29/21 Get ammonia <9 MRI- placed on hold due to oxygen demands continue neuro checks Q4HR Time Spent With Patient Time with patient: Greater than 35 minutes Subjective Date/time seen: 05/03/21 09:21 Interval history: 05/02/21 1430 Patient is a 80 year old female here for covid. She was so much better today, she was sitting up in bed eating her tray. She stated that she is just not hungry and asked if she really needed to eat. I told her that she has not really eaten in a few days. I did ask if she remembered me, which she said yes. She also stated that she is feeling better. She denies chest pain, shortness of breath, weakness, fatigue, fevers, chills, and headache. Updated the family at 1630. All questions were answered and verbalized understanding of current plan and treatment 05/03/21 0920 Today patient did eat breakfast and 1/2 of her lunch. She did state that she feels better. She was laughing and telling me about her mandaen and the sports teams. She was able t
[2021-05-03] MEDS: REMDESIVIR 100 MG/NS 250 ML 100 MG/250 ML BAG 250 MG IVPB (11:12)
[2021-05-03] MEDS: FUROSEMIDE INJ 40 MG/4 ML VIAL IV PUSH (11:12)
[2021-05-03 12:59] LABS: Glucose Point of Care 448 mg/dl (65-105)
[2021-05-03] MEDS: INSULIN GLARGINE (*BKC) 100 UNITS/ML 55 UNITS SUB-Q (14:07)
[2021-05-03] MEDS: INSULIN HUMAN REGULAR (*BKC) 100 UNITS/ML 10 UNITS SUB-Q (17:28)
[2021-05-03 17:39] LABS: Glucose Point of Care 419 mg/dl (65-105)
[2021-05-03 18:55] LABS: Glucose Point of Care 259 mg/dl (65-105)
[2021-05-03 20:49] LABS: Glucose Point of Care 203 mg/dl (65-105)
[2021-05-04] VITALS (20 sets, daily range): BP systolic 115–149; BP diastolic 46–64; PULSE 48–79; RESP 17–26; TEMP 36–36.9; O2SAT 91–100
[2021-05-04] MEDS: ALBUTEROL SULFATE NEB 2.5 MG/0.5 ML INH INHALATION ×3 (02:57→14:53)
[2021-05-04] MEDS: LEVOTHYROXINE SODIUM INJ 100 MCG/5 ML VIAL 56 MCG IV PUSH (06:01)
[2021-05-04 08:13] LABS: Basophils Percent Auto 0.1 % (0.2-1.2); Hemoglobin 9.5 g/dL (12.0-15.0); Immature Granulocyte Absolute 0.41 K/mm3 (0.00-0.031); Immature Granulocyte Percent A 4.2 % (0-0.5); Immature Platelet Fraction Pct 4.5 % (0.9-11.2); Lymphocytes Absolute Auto 0.36 K/mm3 (0.9-3.2); Lymphocytes Percent Auto 3.7 % (18.3-44.2); Mean Corpuscular HGB Conc 32.8 g/dl (32-36); Mean Corpuscular Hemoglobin 30.5 pg (26-34); Mean Corpuscular Volume 93.2 fl (80-100); Mean Platelet Volume 10.4 fl (7.4-10.4); Monocytes Absolute Auto 0.4 K/mm3 (0.1-0.6); Monocytes Percent Auto 3.6 % (2.6-8.5); Neutrophils Absolute Auto 8.6 K/mm3 (1.3-6.7); Neutrophils Percent Auto 88.4 % (45.5-73.1); Nucleated Red Blood Cells Perc 0.2 % (0.0-0.2); Platelet Count Result 219 k/mm3 (150-375); Red Blood Count 3.11 M/mm3 (4.2-5.4); Red Cell Distribution Width 14.5 % (11.5-14.5); White Blood Count 9.8 K/mm3 (4.5-10.0)
[2021-05-04 08:46] LABS: Alanine Aminotransferase 23 U/L (4-35); Albumin Level 2.9 g/dL (3.5-5.1); Alkaline Phosphatase 62 U/L (38-126); Anion Gap 5 mmol/L (8-16); Aspartate Amino Transferase 38 U/L (14-36); Bilirubin,Total 0.4 mg/dL (0.2-1.3); Blood Urea Nitrogen 33 mg/dL (7-17); Calcium 9.1 mg/dL (8.4-10.2); Carbon Dioxide 25 mmol/L (22-30); Chloride 106 mmol/L (98-107); Estimated CRCL calculation 49 ml/min; Estimated Glomerular Filt Rate > 60; Glucose 151 mg/dL (65-110); Potassium 4.3 mmol/L (3.4-5.0); Sodium 136 mmol/L (137-145)
[2021-05-04 09:08] LABS: Glucose Point of Care 146 mg/dl (65-105)
[2021-05-04] MEDS: ENOXAPARIN 40 MG/0.4 ML SYRINGE SUB-Q (09:16)
[2021-05-04] MEDS: CITALOPRAM HYDROBROMIDE 20 MG TABLET PO (09:17)
[2021-05-04] MEDS: amLODIPine BESYLATE 5 MG TABLET 10 MG PO (09:17)
[2021-05-04] MEDS: INSULIN GLARGINE (*BKC) 100 UNITS/ML 55 UNITS SUB-Q (09:17)
[2021-05-04] MEDS: NEBIVOLOL HCL 5 MG TABLET 40 MG PO (09:17)
[2021-05-04] MEDS: levETIRAcetam 500 MG TABLET PO ×2 (09:17→21:15)
[2021-05-04] MEDS: polyethylene glycoL 3350 17 GM POWD.PACK PO (09:17)
[2021-05-04] MEDS: INSULIN ASPART (*BKC) 100 UNITS/ML 8 UNITS SUB-Q ×3 (09:19→18:07)
[2021-05-04 09:32] LABS: NT Pro B Type Natriuretic Pept 935 pg/mL (5-100)
--- NOTE | 2021-05-04 09:52 | P.PNIM_ITS ---
Progress Note: A&P Assessment and Plan (1) Pneumonia due to COVID-19 virus: Code(s): U07.1 - COVID-19; J12.82 - Pneumonia due to coronavirus disease 2019 Status: Acute Assessment and Plan: * Continue decadron and lovenox * Remdesivir completed 10 days on 05/03/21 * Inflammatory markers CRP of 3.4 05/03/21 * continue to wean oxygen * D.Dimer is trending down at 9.64 (05/03/21) * CTA NO PE, worsening covid PNA (04/29/21) * baricitinib and has been started 04/25/21, placed on hold 05/01/21, restarted 05/04/21 * plasma [04/24/21] * Abdelrahman and IS therapy * Albuterol nebs * Lasix 40mg IV once repeated (2) Acute respiratory failure with hypoxia: Code(s): J96.01 - Acute respiratory failure with hypoxia Status: Acute Assessment and Plan: * Continue supplemental o2 * wean to maintain saturation greater than 90% (3) Emphysema/COPD: Code(s): J43.9 - Emphysema, unspecified Status: Acute Assessment and Plan: * continue tx as above (4) Type 2 diabetes mellitus: Code(s): E11.9 - Type 2 diabetes mellitus without complications Status: Acute Assessment and Plan: * Glucose on labs was 151 POCT was 146 * Glucose noted to be in the 400s 05/03/21, given 10U of reg once * continue 8 units with meals with sliding scale as well as Lantus at 55 units * a1c 6.6, good control at home with her home regimen * trend very closely PO intake * continue accuchecks ACHS (5) Hypertension: Code(s): I10 - Essential (primary) hypertension Status: Acute Assessment and Plan: * Last bp 149/50 * continue norvasc and bystolic * Trend blood pressure * Adjust medications as needed (6) ALCIRA (acute kidney injury): Code(s): N17.9 - Acute kidney failure, unspecified Status: Acute Assessment and Plan: * Normalized with a BUN of 33 creatinine 0.70 * Trend labs * Labs in a.m. (7) Hyponatremia: Code(s): E87.1 - Hypo-osmolality and hyponatremia Status: Acute Assessment and Plan: * last sodium 136 * will continue to trend * Seems to be resolved at this time (8) Hypercalcemia: Code(s): E83.52 - Hypercalcemia Status: Acute Assessment and Plan: * mild, could be due to dehydration * hx of breast cancer * would repeat outpt after acute illness resolved. * PTH pending (9) Acute metabolic encephalopathy: Code(s): G93.41 - Metabolic encephalopathy Status: Acute Assessment and Plan: * Seems to be resolved at this time * Patient alert and oriented sitting up eating a tray * episode of unresponsiveness on 04/29/21 * glucose remains stable at 448 POC * Vital signs stable * CT of the brain: chronic age related findings, no acute findings noted 04/29/21 * Neurology consulted thank you for your recommendations * CT of chest/abd/pelvis with contrast: no PE, worsening covid PNA, moderate emphysema * EEG showed some slowing of the theta and delta waves * troyra stated 04/29/21 * Get ammonia <9 * MRI- placed on hold due to oxygen demands * continue neuro checks Q4HR Subjective Date/time seen: 05/04/21 09:52 Interval history: 05/02/21 5080 Patient is a 80 year old female here for covid. She was so much better today, she was sitting up in bed eating her tray. She stated that she is just not hungry and asked if she real
--- NOTE | 2021-05-04 09:52 | PM.IMPN ---
Progress Note: A&P Assessment and Plan (1) Pneumonia due to COVID-19 virus: Code(s): U07.1 - COVID-19; J12.82 - Pneumonia due to coronavirus disease 2019 Status: Acute Assessment and Plan: Continue decadron and lovenox Remdesivir completed 10 days on 05/03/21 Inflammatory markers CRP of 3.4 05/03/21 continue to wean oxygen D.Dimer is trending down at 9.64 (05/03/21) CTA NO PE, worsening covid PNA (04/29/21) baricitinib and has been started 04/25/21, placed on hold 05/01/21, restarted 05/04/21 plasma [04/24/21] Abdelrahman and IS therapy Albuterol nebs Lasix 40mg IV once repeated (2) Acute respiratory failure with hypoxia: Code(s): J96.01 - Acute respiratory failure with hypoxia Status: Acute Assessment and Plan: Continue supplemental o2 wean to maintain saturation greater than 90% (3) Emphysema/COPD: Code(s): J43.9 - Emphysema, unspecified Status: Acute Assessment and Plan: continue tx as above (4) Type 2 diabetes mellitus: Code(s): E11.9 - Type 2 diabetes mellitus without complications Status: Acute Assessment and Plan: Glucose on labs was 151 POCT was 146 Glucose noted to be in the 400s 05/03/21, given 10U of reg once continue 8 units with meals with sliding scale as well as Lantus at 55 units a1c 6.6, good control at home with her home regimen trend very closely PO intake continue accuchecks ACHS (5) Hypertension: Code(s): I10 - Essential (primary) hypertension Status: Acute Assessment and Plan: Last bp 149/50 continue norvasc and bystolic Trend blood pressure Adjust medications as needed (6) ALCIRA (acute kidney injury): Code(s): N17.9 - Acute kidney failure, unspecified Status: Acute Assessment and Plan: Normalized with a BUN of 33 creatinine 0.70 Trend labs Labs in a.m. (7) Hyponatremia: Code(s): E87.1 - Hypo-osmolality and hyponatremia Status: Acute Assessment and Plan: last sodium 136 will continue to trend Seems to be resolved at this time (8) Hypercalcemia: Code(s): E83.52 - Hypercalcemia Status: Acute Assessment and Plan: mild, could be due to dehydration hx of breast cancer would repeat outpt after acute illness resolved. PTH pending (9) Acute metabolic encephalopathy: Code(s): G93.41 - Metabolic encephalopathy Status: Acute Assessment and Plan: Seems to be resolved at this time Patient alert and oriented sitting up eating a tray episode of unresponsiveness on 04/29/21 glucose remains stable at [address]OC Vital signs [address] CT of the brain: chronic age related findings, no acute findings noted 04/29/21 Neurology consulted thank you for your recommendations CT of chest/abd/pelvis with contrast: no PE, worsening covid PNA, moderate emphysema EEG showed some slowing of the theta and delta waves elizabeth stated 04/29/21 Get ammonia <9 MRI- placed on hold due to oxygen demands continue neuro checks Q4HR Subjective Date/time seen: 05/04/21 09:52 Interval history: 05/02/21 1430 Patient is a 80 year old female here for covid. She was so much better today, she was sitting up in bed eating her tray. She stated that she is just not hungry and asked if she really needed to eat. I told her that she has not really eaten in a few days. I did ask if she remembered me, which she said yes. She also stated that she is feeling better. She denies chest pain, shortness of breath, weakness, fatigue, fevers, chills, and headache. Updated the family at 1630. All questions were answered and verbalized understanding of current plan and treatment 05/03/21 0920 Today patient did eat breakfast and 1/2 of her lunch. She did state that she feels better. 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 She was able to raise her a
[2021-05-04 11:46] LABS: Basophils Percent Auto 0.2 % (0.2-1.2); Hematocrit 31.4 % (37.0-47.0); Hemoglobin 10.5 g/dL (12.0-15.0); Immature Granulocyte Absolute 0.33 K/mm3 (0.00-0.031); Immature Granulocyte Percent A 2.7 % (0-0.5); Lymphocytes Absolute Auto 0.43 K/mm3 (0.9-3.2); Lymphocytes Percent Auto 3.6 % (18.3-44.2); Mean Corpuscular HGB Conc 33.4 g/dl (32-36); Mean Corpuscular Hemoglobin 30.5 pg (26-34); Mean Corpuscular Volume 91.3 fl (80-100); Mean Platelet Volume 10.2 fl (7.4-10.4); Monocytes Absolute Auto 0.6 K/mm3 (0.1-0.6); Monocytes Percent Auto 5.1 % (2.6-8.5); Neutrophils Absolute Auto 10.7 K/mm3 (1.3-6.7); Neutrophils Percent Auto 88.4 % (45.5-73.1); Nucleated Red Blood Cells Perc 0.2 % (0.0-0.2); Platelet Count Result 211 k/mm3 (150-375); Red Blood Count 3.44 M/mm3 (4.2-5.4); Red Cell Distribution Width 14.6 % (11.5-14.5); White Blood Count 12.1 K/mm3 (4.5-10.0)
[2021-05-04 11:57] LABS: Alanine Aminotransferase 25 U/L (4-35); Estimated CRCL calculation 43 ml/min; Estimated Glomerular Filt Rate > 60
[2021-05-04] MEDS: FUROSEMIDE INJ 40 MG/4 ML VIAL IV PUSH (12:01)
[2021-05-04] MEDS: metFORMIN HCL 500 MG TABLET PO ×2 (12:02→18:07)
[2021-05-04] MEDS: BARICITINIB 2 MG TABLET BY MOUTH (12:02)
[2021-05-04] MEDS: INSULIN ASPART (*BKC) 100 UNITS/ML SUB-Q (12:03)
[2021-05-04 12:57] LABS: Glucose Point of Care 285 mg/dl (65-105)
--- NOTE | 2021-05-04 13:14 | PCDIET ---
Nutrition Follow-Up Complete: Nutrition Diagnosis: Inadequate oral intake related to COVID, altered mental status as evidenced by intake records. Nutrition Goal: Patient to meet estimated nutritional needs. Goal in progress. Average intake since 05/02/21 has been 50% of recorded meals. Patient on diabetic, soft and bite size diet with Glucerna Shake TID. No additional recommendations at this time. Last recorded weight is 72.5 kg which is down from last review. -I/O noted. Bowel Motility: No documented BM. Patient on Miralax daily. Labs Reviewed: WBC (12.1), RBC (3.44), Hgb (10.5), Hct (31.4), Glu (285) Meds Noted: Albuterol, Norvasc, Olumiant, Ferrous Sulfate, Novolog, Lantus, Synthroid, Glucophage, Bystolic, Miralax, Lasix Additional Notes: Buttocks macerated. Sacrum reddened. Will continue to monitor with same goal. Nutrition Monitoring and Evaluation: Follow up every 5 days.
[2021-05-04 18:04] LABS: Glucose Point of Care 196 mg/dl (65-105)
--- NOTE | 2021-05-04 19:50 | PC.NURSE ---
This patient, Sara King, was transferred to [ [facility] ] on 05/04/21 at 1950. Personal belongings sent with patient. Report given to [ SEEMA Canseco. ]. Appropriate documentation sent with patient.
--- NOTE | 2021-05-04 20:28 | PC.NURSE ---
Patient was transferred from IMU to room 317. Patient was orientated to room and all belongings at bedside
[2021-05-04 22:52] LABS: Glucose Point of Care 192 mg/dl (65-105)
[2021-05-05] VITALS (14 sets, daily range): BP systolic 115–143; BP diastolic 44–57; PULSE 53–72; RESP 16–20; TEMP 36.1–38.1; O2SAT 90–92
[2021-05-05] MEDS: ALBUTEROL SULFATE NEB 2.5 MG/0.5 ML INH INHALATION ×4 (01:21→21:20)
[2021-05-05 06:17] LABS: Basophils Percent Auto 0.2 % (0.2-1.2); Hematocrit 30.1 % (37.0-47.0); Hemoglobin 10.2 g/dL (12.0-15.0); Immature Granulocyte Absolute 0.38 K/mm3 (0.00-0.031); Immature Granulocyte Percent A 2.8 % (0-0.5); Lymphocytes Absolute Auto 0.79 K/mm3 (0.9-3.2); Lymphocytes Percent Auto 5.7 % (18.3-44.2); Mean Corpuscular HGB Conc 33.9 g/dl (32-36); Mean Corpuscular Hemoglobin 30.4 pg (26-34); Mean Corpuscular Volume 89.9 fl (80-100); Monocytes Percent Auto 7.3 % (2.6-8.5); Neutrophils Absolute Auto 11.6 K/mm3 (1.3-6.7); Nucleated Red Blood Cells Perc 0.2 % (0.0-0.2); Platelet Count Result 229 k/mm3 (150-375); Red Blood Count 3.35 M/mm3 (4.2-5.4); Red Cell Distribution Width 14.6 % (11.5-14.5); White Blood Count 13.8 K/mm3 (4.5-10.0)
[2021-05-05] MEDS: LEVOTHYROXINE SODIUM INJ 100 MCG/5 ML VIAL 56 MCG IV PUSH (06:25)
[2021-05-05 06:48] LABS: Alanine Aminotransferase 25 U/L (4-35); Estimated CRCL calculation 43 ml/min; Estimated Glomerular Filt Rate > 60
[2021-05-05] MEDS: GLUCOSE ORAL GEL 15 GM OF GLUCSE IN 37.5 GM TUBE PO (08:16)
[2021-05-05 08:22] LABS: Glucose Point of Care 54 mg/dl (65-105)
[2021-05-05 08:32] LABS: Glucose Point of Care 46 mg/dl (65-105)
[2021-05-05] MEDS: DEXTROSE 50% 25 GM/50 ML SYRINGE IV PUSH (08:43)
[2021-05-05] MEDS: CITALOPRAM HYDROBROMIDE 20 MG TABLET PO (08:44)
[2021-05-05] MEDS: BARICITINIB 2 MG TABLET BY MOUTH (08:44)
[2021-05-05] MEDS: levETIRAcetam 500 MG TABLET PO ×2 (08:44→20:01)
[2021-05-05] MEDS: ENOXAPARIN 40 MG/0.4 ML SYRINGE SUB-Q (08:44)
[2021-05-05] MEDS: NEBIVOLOL HCL 5 MG TABLET 40 MG PO (08:45)
[2021-05-05] MEDS: amLODIPine BESYLATE 5 MG TABLET 10 MG PO (08:45)
[2021-05-05] MEDS: polyethylene glycoL 3350 17 GM POWD.PACK PO (08:45)
--- NOTE | 2021-05-05 09:47 | P.PNIM_ITS ---
Progress Note: A&P Assessment and Plan (1) Pneumonia due to COVID-19 virus: Code(s): U07.1 - COVID-19; J12.82 - Pneumonia due to coronavirus disease 2019 Status: Acute Assessment and Plan: * Continue decadron and lovenox * Remdesivir completed 10 days on 05/03/21 * Inflammatory markers CRP of 3.4 05/03/21 * continue to wean oxygen * D.Dimer is trending down at 9.64 (05/03/21) * CTA NO PE, worsening covid PNA (04/29/21) * baricitinib and has been started 04/25/21, placed on hold 05/01/21, restarted 05/04/21 * plasma [04/24/21] * Abdelrahman and IS therapy * Albuterol nebs * Lasix 40mg IV once repeated (2) Acute respiratory failure with hypoxia: Code(s): J96.01 - Acute respiratory failure with hypoxia Status: Acute Assessment and Plan: * Continue supplemental o2 * wean to maintain saturation greater than 90% (3) Emphysema/COPD: Code(s): J43.9 - Emphysema, unspecified Status: Acute Assessment and Plan: * continue tx as above (4) Type 2 diabetes mellitus: Code(s): E11.9 - Type 2 diabetes mellitus without complications Status: Acute Assessment and Plan: * Glucose on labs was 151 POCT was 146 * Glucose noted to be in the 400s 05/03/21, given 10U of reg once * continue 8 units with meals with sliding scale as well as Lantus at 55 units * a1c 6.6, good control at home with her home regimen * trend very closely PO intake * continue accuchecks ACHS (5) Hypertension: Code(s): I10 - Essential (primary) hypertension Status: Acute Assessment and Plan: * Last bp 149/50 * continue norvasc and bystolic * Trend blood pressure * Adjust medications as needed (6) ALCIRA (acute kidney injury): Code(s): N17.9 - Acute kidney failure, unspecified Status: Acute Assessment and Plan: * Normalized with a BUN of 33 creatinine 0.70 * Trend labs * Labs in a.m. (7) Hyponatremia: Code(s): E87.1 - Hypo-osmolality and hyponatremia Status: Acute Assessment and Plan: * last sodium 136 * will continue to trend * Seems to be resolved at this time (8) Hypercalcemia: Code(s): E83.52 - Hypercalcemia Status: Acute Assessment and Plan: * mild, could be due to dehydration * hx of breast cancer * would repeat outpt after acute illness resolved. * PTH pending (9) Acute metabolic encephalopathy: Code(s): G93.41 - Metabolic encephalopathy Status: Acute Assessment and Plan: * Seems to be resolved at this time * Patient alert and oriented sitting up eating a tray * episode of unresponsiveness on 04/29/21 * glucose remains stable at 448 POC * Vital signs stable * CT of the brain: chronic age related findings, no acute findings noted 04/29/21 * Neurology consulted thank you for your recommendations * CT of chest/abd/pelvis with contrast: no PE, worsening covid PNA, moderate emphysema * EEG showed some slowing of the theta and delta waves * elizabeth stated 04/29/21 * Get ammonia <9 * MRI- placed on hold due to oxygen demands * continue neuro checks Q4HR Additional Plan WBC count inc steadily over last few days, however difficult to interpret in patient on steroids will get another CXR today to eval possibility of superimposed bacterial pneumonia & discuss any other infectious s/x with pt Time Spent With Patient Time wi
--- NOTE | 2021-05-05 09:47 | PM.IMPN ---
Progress Note: A&P Assessment and Plan (1) Pneumonia due to COVID-19 virus: Code(s): U07.1 - COVID-19; J12.82 - Pneumonia due to coronavirus disease 2019 Status: Acute Assessment and Plan: Continue decadron and lovenox Remdesivir completed 10 days on 05/03/21 Inflammatory markers CRP of 3.4 05/03/21 continue to wean oxygen D.Dimer is trending down at 9.64 (05/03/21) CTA NO PE, worsening covid PNA (04/29/21) baricitinib and has been started 04/25/21, placed on hold 05/01/21, restarted 05/04/21 plasma [04/24/21] Abdelrahman and IS therapy Albuterol nebs Lasix 40mg IV once repeated (2) Acute respiratory failure with hypoxia: Code(s): J96.01 - Acute respiratory failure with hypoxia Status: Acute Assessment and Plan: Continue supplemental o2 wean to maintain saturation greater than 90% (3) Emphysema/COPD: Code(s): J43.9 - Emphysema, unspecified Status: Acute Assessment and Plan: continue tx as above (4) Type 2 diabetes mellitus: Code(s): E11.9 - Type 2 diabetes mellitus without complications Status: Acute Assessment and Plan: Glucose on labs was 151 POCT was 146 Glucose noted to be in the 400s 05/03/21, given 10U of reg once continue 8 units with meals with sliding scale as well as Lantus at 55 units a1c 6.6, good control at home with her home regimen trend very closely PO intake continue accuchecks ACHS (5) Hypertension: Code(s): I10 - Essential (primary) hypertension Status: Acute Assessment and Plan: Last bp 149/50 continue norvasc and bystolic Trend blood pressure Adjust medications as needed (6) ALCIRA (acute kidney injury): Code(s): N17.9 - Acute kidney failure, unspecified Status: Acute Assessment and Plan: Normalized with a BUN of 33 creatinine 0.70 Trend labs Labs in a.m. (7) Hyponatremia: Code(s): E87.1 - Hypo-osmolality and hyponatremia Status: Acute Assessment and Plan: last sodium 136 will continue to trend Seems to be resolved at this time (8) Hypercalcemia: Code(s): E83.52 - Hypercalcemia Status: Acute Assessment and Plan: mild, could be due to dehydration hx of breast cancer would repeat outpt after acute illness resolved. PTH pending (9) Acute metabolic encephalopathy: Code(s): G93.41 - Metabolic encephalopathy Status: Acute Assessment and Plan: Seems to be resolved at this time Patient alert and oriented sitting up eating a tray episode of unresponsiveness on 04/29/21 glucose remains stable at [address]OC Vital signs stable CT of the brain: chronic age related findings, no acute findings noted 04/29/21 Neurology consulted thank you for your recommendations CT of chest/abd/pelvis with contrast: no PE, worsening covid PNA, moderate emphysema EEG showed some slowing of the theta and delta waves elizabeth stated 04/29/21 Get ammonia <9 MRI- placed on hold due to oxygen demands continue neuro checks Q4HR Additional Plan WBC count inc steadily over last few days, however difficult to interpret in patient on steroids will get another CXR today to eval possibility of superimposed bacterial pneumonia & discuss any other infectious s/x with pt Time Spent With Patient Time with patient: less than 15 minutes Subjective Date/time seen: 05/05/21 09:47 no acute complaints - continued resp difficulty, unchanged from yestreday Review of Systems Review of Systems: All systems reviewed & are unremarkable except as noted in HPI and below Exam Const: General: no acute distress Neck: Neck: no JVD Resp: Auscultation: clear to auscultation bilaterally Other: continued subjective SOB - unchanged from yesterday Cardio: Rate: regular rate Rhythm: regular rhythm GI: GI Palp: Yes Soft to palpation and No Tenderness to palpation present (GI) O
[2021-05-05 12:15] LABS: Glucose Point of Care 151 mg/dl (65-105)
[2021-05-05 12:39] LABS: Glucose Point of Care 306 mg/dl (65-105)
[2021-05-05] MEDS: INSULIN ASPART (*BKC) 100 UNITS/ML SUB-Q ×2 (13:13→17:55)
[2021-05-05] MEDS: INSULIN ASPART (*BKC) 100 UNITS/ML 8 UNITS SUB-Q ×2 (13:13→17:55)
--- NOTE | 2021-05-05 15:08 | PCOTNOTE ---
Attempted to see patient this pm. Pt was sleeping upon entering and declined OT at this time. Pt kept eyes closed and replied, No.
[2021-05-05 17:34] LABS: Glucose Point of Care 309 mg/dl (65-105)
[2021-05-05] MEDS: metFORMIN HCL 500 MG TABLET PO (17:56)
[2021-05-05 20:57] LABS: Glucose Point of Care 144 mg/dl (65-105)
[2021-05-06] VITALS (16 sets, daily range): BP systolic 119–125; BP diastolic 46–52; PULSE 58–72; RESP 16–22; TEMP 36–37.1; O2SAT 91–96
[2021-05-06] MEDS: INSULIN ASPART (*BKC) 100 UNITS/ML 8 UNITS SUB-Q ×2 (01:00→17:49)
[2021-05-06] MEDS: ALBUTEROL SULFATE NEB 2.5 MG/0.5 ML INH INHALATION ×4 (02:22→20:12)
[2021-05-06] MEDS: LEVOTHYROXINE SODIUM INJ 100 MCG/5 ML VIAL 56 MCG IV PUSH (05:39)
[2021-05-06 06:49] LABS: Basophils Percent Auto 0.2 % (0.2-1.2); Hemoglobin 10.1 g/dL (12.0-15.0); Immature Granulocyte Absolute 0.36 K/mm3 (0.00-0.031); Lymphocytes Absolute Auto 0.83 K/mm3 (0.9-3.2); Lymphocytes Percent Auto 6.9 % (18.3-44.2); Mean Corpuscular HGB Conc 32.6 g/dl (32-36); Mean Corpuscular Hemoglobin 29.6 pg (26-34); Mean Corpuscular Volume 90.9 fl (80-100); Mean Platelet Volume 10.3 fl (7.4-10.4); Monocytes Absolute Auto 0.9 K/mm3 (0.1-0.6); Monocytes Percent Auto 7.3 % (2.6-8.5); Neutrophils Absolute Auto 9.9 K/mm3 (1.3-6.7); Neutrophils Percent Auto 82.6 % (45.5-73.1); Nucleated Red Blood Cells Perc 0.2 % (0.0-0.2); Platelet Count Result 208 k/mm3 (150-375); Red Blood Count 3.41 M/mm3 (4.2-5.4); Red Cell Distribution Width 14.7 % (11.5-14.5)
[2021-05-06 08:53] LABS: Glucose Point of Care 47 mg/dl (65-105)
[2021-05-06] MEDS: amLODIPine BESYLATE 5 MG TABLET 10 MG PO (08:57)
[2021-05-06] MEDS: ENOXAPARIN 40 MG/0.4 ML SYRINGE SUB-Q (08:57)
[2021-05-06] MEDS: BARICITINIB 2 MG TABLET BY MOUTH (08:57)
[2021-05-06] MEDS: levETIRAcetam 500 MG TABLET PO ×2 (08:57→20:32)
[2021-05-06] MEDS: CITALOPRAM HYDROBROMIDE 20 MG TABLET PO (08:58)
[2021-05-06] MEDS: metFORMIN HCL 500 MG TABLET PO ×2 (08:58→17:50)
[2021-05-06] MEDS: NEBIVOLOL HCL 5 MG TABLET 40 MG PO (08:58)
[2021-05-06] MEDS: polyethylene glycoL 3350 17 GM POWD.PACK PO (08:58)
[2021-05-06 09:15] LABS: Parathyroid Hormone Related Pr 9
[2021-05-06 09:17] LABS: Alanine Aminotransferase 24 U/L (4-35); Estimated CRCL calculation 43 ml/min; Estimated Glomerular Filt Rate 60
--- NOTE | 2021-05-06 10:20 | P.PNIM_ITS ---
Progress Note: A&P Assessment and Plan (1) Pneumonia due to COVID-19 virus: Code(s): U07.1 - COVID-19; J12.82 - Pneumonia due to coronavirus disease 2019 Status: Acute Assessment and Plan: * Continue decadron and lovenox * Remdesivir completed 10 days on 05/03/21 * Inflammatory markers CRP of 3.4 05/03/21 * continue to wean oxygen * D.Dimer is trending down at 9.64 (05/03/21) * CTA NO PE, worsening covid PNA (04/29/21) * baricitinib and has been started 04/25/21, placed on hold 05/01/21, restarted 05/04/21 * plasma [04/24/21] * Abdelrahman and IS therapy * Albuterol nebs * Lasix 40mg IV once repeated (2) Acute respiratory failure with hypoxia: Code(s): J96.01 - Acute respiratory failure with hypoxia Status: Acute Assessment and Plan: * Continue supplemental o2 * wean to maintain saturation greater than 90% (3) Emphysema/COPD: Code(s): J43.9 - Emphysema, unspecified Status: Acute Assessment and Plan: * continue tx as above (4) Type 2 diabetes mellitus: Code(s): E11.9 - Type 2 diabetes mellitus without complications Status: Acute Assessment and Plan: * Glucose on labs was 151 POCT was 146 * Glucose noted to be in the 400s 05/03/21, given 10U of reg once * continue 8 units with meals with sliding scale as well as Lantus at 55 units * a1c 6.6, good control at home with her home regimen * trend very closely PO intake * continue accuchecks ACHS (5) Hypertension: Code(s): I10 - Essential (primary) hypertension Status: Acute Assessment and Plan: * Last bp 149/50 * continue norvasc and bystolic * Trend blood pressure * Adjust medications as needed (6) ALCIRA (acute kidney injury): Code(s): N17.9 - Acute kidney failure, unspecified Status: Acute Assessment and Plan: * Normalized with a BUN of 33 creatinine 0.70 * Trend labs * Labs in a.m. (7) Hyponatremia: Code(s): E87.1 - Hypo-osmolality and hyponatremia Status: Acute Assessment and Plan: * last sodium 136 * will continue to trend * Seems to be resolved at this time (8) Hypercalcemia: Code(s): E83.52 - Hypercalcemia Status: Acute Assessment and Plan: * mild, could be due to dehydration * hx of breast cancer * would repeat outpt after acute illness resolved. * PTH pending (9) Acute metabolic encephalopathy: Code(s): G93.41 - Metabolic encephalopathy Status: Acute Assessment and Plan: * Seems to be resolved at this time * Patient alert and oriented sitting up eating a tray * episode of unresponsiveness on 04/29/21 * glucose remains stable at 448 POC * Vital signs stable * CT of the brain: chronic age related findings, no acute findings noted 04/29/21 * Neurology consulted thank you for your recommendations * CT of chest/abd/pelvis with contrast: no PE, worsening covid PNA, moderate emphysema * EEG showed some slowing of the theta and delta waves * elizabeth stated 04/29/21 * Get ammonia <9 * MRI- placed on hold due to oxygen demands * continue neuro checks Q4HR Additional Plan continue steroids, completed remdesivir wean O2 as tolerated keep monitoring sodium Time Spent With Patient Time with patient: less than 15 minutes Subjective Date/time seen: 05/06/21 10:20 unchanged medical status, continues to need s
--- NOTE | 2021-05-06 10:20 | PM.IMPN ---
Progress Note: A&P Assessment and Plan (1) Pneumonia due to COVID-19 virus: Code(s): U07.1 - COVID-19; J12.82 - Pneumonia due to coronavirus disease 2019 Status: Acute Assessment and Plan: Continue decadron and lovenox Remdesivir completed 10 days on 05/03/21 Inflammatory markers CRP of 3.4 05/03/21 continue to wean oxygen D.Dimer is trending down at 9.64 (05/03/21) CTA NO PE, worsening covid PNA (04/29/21) baricitinib and has been started 04/25/21, placed on hold 05/01/21, restarted 05/04/21 plasma [04/24/21] Abdelrahman and IS therapy Albuterol nebs Lasix 40mg IV once repeated (2) Acute respiratory failure with hypoxia: Code(s): J96.01 - Acute respiratory failure with hypoxia Status: Acute Assessment and Plan: Continue supplemental o2 wean to maintain saturation greater than 90% (3) Emphysema/COPD: Code(s): J43.9 - Emphysema, unspecified Status: Acute Assessment and Plan: continue tx as above (4) Type 2 diabetes mellitus: Code(s): E11.9 - Type 2 diabetes mellitus without complications Status: Acute Assessment and Plan: Glucose on labs was 151 POCT was 146 Glucose noted to be in the 400s 05/03/21, given 10U of reg once continue 8 units with meals with sliding scale as well as Lantus at 55 units a1c 6.6, good control at home with her home regimen trend very closely PO intake continue accuchecks ACHS (5) Hypertension: Code(s): I10 - Essential (primary) hypertension Status: Acute Assessment and Plan: Last bp 149/50 continue norvasc and bystolic Trend blood pressure Adjust medications as needed (6) ALCIRA (acute kidney injury): Code(s): N17.9 - Acute kidney failure, unspecified Status: Acute Assessment and Plan: Normalized with a BUN of 33 creatinine 0.70 Trend labs Labs in a.m. (7) Hyponatremia: Code(s): E87.1 - Hypo-osmolality and hyponatremia Status: Acute Assessment and Plan: last sodium 136 will continue to trend Seems to be resolved at this time (8) Hypercalcemia: Code(s): E83.52 - Hypercalcemia Status: Acute Assessment and Plan: mild, could be due to dehydration hx of breast cancer would repeat outpt after acute illness resolved. PTH pending (9) Acute metabolic encephalopathy: Code(s): G93.41 - Metabolic encephalopathy Status: Acute Assessment and Plan: Seems to be resolved at this time Patient alert and oriented sitting up eating a tray episode of unresponsiveness on 04/29/21 glucose remains stable at [address]OC Vital signs stable CT of the brain: chronic age related findings, no acute findings noted 04/29/21 Neurology consulted thank you for your recommendations CT of chest/abd/pelvis with contrast: no PE, worsening covid PNA, moderate emphysema EEG showed some slowing of the theta and delta waves elizabeth stated 04/29/21 Get ammonia <9 MRI- placed on hold due to oxygen demands continue neuro checks Q4HR Additional Plan continue steroids, completed remdesivir wean O2 as tolerated keep monitoring sodium Time Spent With Patient Time with patient: less than 15 minutes Subjective Date/time seen: 05/06/21 10:20 unchanged medical status, continues to need supplemental O2 Review of Systems Review of Systems: All systems reviewed & are unremarkable except as noted in HPI and below Exam Const: General: no acute distress Neck: Neck: no JVD Resp: Effort & Inspection: normal respiratory effort Auscultation: clear to auscultation bilaterally Cardio: Rate: regular rate Rhythm: regular rhythm GI: GI Palp: Yes Soft to palpation and No Tenderness to palpation present (GI) Objective Data Vital Signs Vital Signs: Vital Signs - 24 hr 05/05/21 12:00 05/05/21 14:23 05/05/21 16:00 Temperature 98.0 F 100.6 F H Pulse Rate 62 59 L
[2021-05-06 12:28] LABS: Glucose Point of Care 160 mg/dl (65-105)
--- NOTE | 2021-05-06 16:39 | PC.NURSE ---
unable to wean pt off o2. sats dropped when up on chair with pt/ot, had to bump up to 15 L, back down to 10L after back in bed and relaxing. sats current at 94 on 10L.
--- NOTE | 2021-05-06 17:11 | PCRCNOTE ---
Window of time for administration has passed. See next scheduled administration.
[2021-05-06 17:41] LABS: Glucose Point of Care 196 mg/dl (65-105)
[2021-05-06 22:56] LABS: Glucose Point of Care 150 mg/dl (65-105)
[2021-05-07] VITALS (13 sets, daily range): BP systolic 114–139; BP diastolic 48–84; PULSE 54–85; RESP 16–20; TEMP 36.1–36.9; O2SAT 94–100
[2021-05-07] MEDS: ALBUTEROL SULFATE NEB 2.5 MG/0.5 ML INH INHALATION ×3 (01:00→21:37)
[2021-05-07] MEDS: LEVOTHYROXINE SODIUM INJ 100 MCG/5 ML VIAL 56 MCG IV PUSH (05:48)
[2021-05-07 07:00] LABS: Basophils Percent Auto 0.2 % (0.2-1.2); Eosinophils Percent Auto 0.2 % (0-4.4); Hematocrit 29.9 % (37.0-47.0); Hemoglobin 9.8 g/dL (12.0-15.0); Immature Granulocyte Percent A 2.1 % (0-0.5); Lymphocytes Absolute Auto 0.81 K/mm3 (0.9-3.2); Lymphocytes Percent Auto 8.6 % (18.3-44.2); Mean Corpuscular HGB Conc 32.8 g/dl (32-36); Mean Corpuscular Hemoglobin 30.6 pg (26-34); Mean Corpuscular Volume 93.4 fl (80-100); Mean Platelet Volume 10.1 fl (7.4-10.4); Monocytes Absolute Auto 0.7 K/mm3 (0.1-0.6); Monocytes Percent Auto 7.9 % (2.6-8.5); Neutrophils Absolute Auto 7.6 K/mm3 (1.3-6.7); Nucleated Red Blood Cells Perc 0.2 % (0.0-0.2); Platelet Count Result 168 k/mm3 (150-375); Red Cell Distribution Width 14.7 % (11.5-14.5); White Blood Count 9.4 K/mm3 (4.5-10.0)
[2021-05-07 07:14] LABS: Alanine Aminotransferase 21 U/L (4-35); Albumin Level 2.6 g/dL (3.5-5.1); Alkaline Phosphatase 53 U/L (38-126); Anion Gap 3 mmol/L (8-16); Aspartate Amino Transferase 46 U/L (14-36); Bilirubin,Total 0.5 mg/dL (0.2-1.3); Blood Urea Nitrogen 24 mg/dL (7-17); Calcium 9.6 mg/dL (8.4-10.2); Carbon Dioxide 26 mmol/L (22-30); Chloride 105 mmol/L (98-107); Estimated CRCL calculation 44 ml/min; Estimated Glomerular Filt Rate 60; Glucose 49 mg/dL (65-110); Magnesium 2.6 mg/dL (1.6-2.3); Phosphorus 4.7 mg/dL (2.5-4.5); Potassium 4.8 mmol/L (3.4-5.0); Sodium 134 mmol/L (137-145)
[2021-05-07] MEDS: GLUCOSE ORAL GEL 15 GM OF GLUCSE IN 37.5 GM TUBE PO ×2 (07:25→17:54)
[2021-05-07 07:54] LABS: Glucose Point of Care 108 mg/dl (65-105)
[2021-05-07 07:54] LABS: Glucose Point of Care 52 mg/dl (65-105)
[2021-05-07] MEDS: polyethylene glycoL 3350 17 GM POWD.PACK PO (08:46)
[2021-05-07] MEDS: NEBIVOLOL HCL 5 MG TABLET 40 MG PO (08:46)
[2021-05-07] MEDS: ENOXAPARIN 40 MG/0.4 ML SYRINGE SUB-Q (08:46)
[2021-05-07] MEDS: metFORMIN HCL 500 MG TABLET PO ×2 (08:46→17:55)
[2021-05-07] MEDS: amLODIPine BESYLATE 5 MG TABLET 10 MG PO (08:47)
[2021-05-07] MEDS: CITALOPRAM HYDROBROMIDE 20 MG TABLET PO (08:47)
[2021-05-07] MEDS: levETIRAcetam 500 MG TABLET PO ×2 (08:47→21:00)
[2021-05-07] MEDS: INSULIN GLARGINE (*BKC) 100 UNITS/ML 55 UNITS SUB-Q (08:47)
[2021-05-07] MEDS: BARICITINIB 2 MG TABLET BY MOUTH (08:47)
--- NOTE | 2021-05-07 09:03 | P.PNIM_ITS ---
Progress Note: A&P Assessment and Plan (1) Pneumonia due to COVID-19 virus: Code(s): U07.1 - COVID-19; J12.82 - Pneumonia due to coronavirus disease 2019 Status: Acute Assessment and Plan: * Continue decadron and lovenox * Remdesivir completed 10 days on 05/03/21 * Inflammatory markers CRP of 3.4 05/03/21 * continue to wean oxygen * D.Dimer is trending down at 9.64 (05/03/21) * CTA NO PE, worsening covid PNA (04/29/21) * baricitinib and has been started 04/25/21, placed on hold 05/01/21, restarted 05/04/21 * plasma [04/24/21] * Abdelrahman and IS therapy * Albuterol nebs * Lasix 40mg IV once repeated (2) Acute respiratory failure with hypoxia: Code(s): J96.01 - Acute respiratory failure with hypoxia Status: Acute Assessment and Plan: * Continue supplemental o2 * wean to maintain saturation greater than 90% (3) Emphysema/COPD: Code(s): J43.9 - Emphysema, unspecified Status: Acute Assessment and Plan: * continue tx as above (4) Type 2 diabetes mellitus: Code(s): E11.9 - Type 2 diabetes mellitus without complications Status: Acute Assessment and Plan: * Glucose on labs was 151 POCT was 146 * Glucose noted to be in the 400s 05/03/21, given 10U of reg once * continue 8 units with meals with sliding scale as well as Lantus at 55 units * a1c 6.6, good control at home with her home regimen * trend very closely PO intake * continue accuchecks ACHS (5) Hypertension: Code(s): I10 - Essential (primary) hypertension Status: Acute Assessment and Plan: * Last bp 149/50 * continue norvasc and bystolic * Trend blood pressure * Adjust medications as needed (6) Hypercalcemia: Code(s): E83.52 - Hypercalcemia Status: Acute Assessment and Plan: * mild, could be due to dehydration * hx of breast cancer * would repeat outpt after acute illness resolved. * PTH pending (7) Hyponatremia: Code(s): E87.1 - Hypo-osmolality and hyponatremia Status: Acute Assessment and Plan: * last sodium 136 * will continue to trend * Seems to be resolved at this time Additional Plan Covid pneumonia with acute respiratory failure requiring HF NC 10L Completed remdesivir, continuing dexamethasone & baricitinib Lovenox for AC continue t/x of underlying problems including Dm2 and HTN Wean O2 as tolerated, guarded prognosis Time Spent With Patient Time with patient: less than 15 minutes Subjective Date/time seen: 05/07/21 09:03 no acute complaints resting comfortably slwoly weaning off O2 Review of Systems Review of Systems: All systems reviewed & are unremarkable except as noted in HPI and below Exam Const: General: no acute distress Neck: Neck: no JVD Resp: Effort & Inspection: normal respiratory effort Auscultation: clear to auscultation bilaterally Cardio: Rate: regular rate Rhythm: regular rhythm GI: GI Palp: Yes Soft to palpation and No Tenderness to palpation present (GI) Objective Data Vital Signs Vital Signs: Vital Signs - 24 hr 05/06/21 09:57 05/06/21 09:58 05/06/21 10:10 Temperature Pulse Rate 61 66 Respiratory Rate 20 20 Blood Pressure Pulse Oximetry 95
--- NOTE | 2021-05-07 09:03 | PM.IMPN ---
Progress Note: A&P Assessment and Plan (1) Pneumonia due to COVID-19 virus: Code(s): U07.1 - COVID-19; J12.82 - Pneumonia due to coronavirus disease 2019 Status: Acute Assessment and Plan: Continue decadron and lovenox Remdesivir completed 10 days on 05/03/21 Inflammatory markers CRP of 3.4 05/03/21 continue to wean oxygen D.Dimer is trending down at 9.64 (05/03/21) CTA NO PE, worsening covid PNA (04/29/21) baricitinib and has been started 04/25/21, placed on hold 05/01/21, restarted 05/04/21 plasma [04/24/21] Abdelrahman and IS therapy Albuterol nebs Lasix 40mg IV once repeated (2) Acute respiratory failure with hypoxia: Code(s): J96.01 - Acute respiratory failure with hypoxia Status: Acute Assessment and Plan: Continue supplemental o2 wean to maintain saturation greater than 90% (3) Emphysema/COPD: Code(s): J43.9 - Emphysema, unspecified Status: Acute Assessment and Plan: continue tx as above (4) Type 2 diabetes mellitus: Code(s): E11.9 - Type 2 diabetes mellitus without complications Status: Acute Assessment and Plan: Glucose on labs was 151 POCT was 146 Glucose noted to be in the 400s 05/03/21, given 10U of reg once continue 8 units with meals with sliding scale as well as Lantus at 55 units a1c 6.6, good control at home with her home regimen trend very closely PO intake continue accuchecks ACHS (5) Hypertension: Code(s): I10 - Essential (primary) hypertension Status: Acute Assessment and Plan: Last bp 149/50 continue norvasc and bystolic Trend blood pressure Adjust medications as needed (6) Hypercalcemia: Code(s): E83.52 - Hypercalcemia Status: Acute Assessment and Plan: mild, could be due to dehydration hx of breast cancer would repeat outpt after acute illness resolved. PTH pending (7) Hyponatremia: Code(s): E87.1 - Hypo-osmolality and hyponatremia Status: Acute Assessment and Plan: last sodium 136 will continue to trend Seems to be resolved at this time Additional Plan Covid pneumonia with acute respiratory failure requiring HF NC 10L Completed remdesivir, continuing dexamethasone & baricitinib Lovenox for AC continue t/x of underlying problems including Dm2 and HTN Wean O2 as tolerated, guarded prognosis Time Spent With Patient Time with patient: less than 15 minutes Subjective Date/time seen: 05/07/21 09:03 no acute complaints resting comfortably slwoly weaning off O2 Review of Systems Review of Systems: All systems reviewed & are unremarkable except as noted in HPI and below Exam Const: General: no acute distress Neck: Neck: no JVD Resp: Effort & Inspection: normal respiratory effort Auscultation: clear to auscultation bilaterally Cardio: Rate: regular rate Rhythm: regular rhythm GI: GI Palp: Yes Soft to palpation and No Tenderness to palpation present (GI) Objective Data Vital Signs Vital Signs: Vital Signs - 24 hr 05/06/21 09:57 05/06/21 09:58 05/06/21 10:10 Temperature Pulse Rate 61 66 Respiratory Rate 20 20 Blood Pressure Pulse Oximetry 95 05/06/21 10:23 05/06/21 12:00 05/06/21 16:00 Temperature 97.5 F L 98.8 F Pulse Rate 68 64 Respiratory Rate 16 16 Blood Pressure 119/46 L 123/46 L Pulse Oximetry 94 95 96 05/06/21 20:00 05/06/21 20:10 05/06/21 20:20 Temperature 96.8 F L Pulse Rate 63 62 65 Respiratory Rate 22 H 20 20 Blood Pressure 125/49 L Pulse Oximetry 96 05/07/21 00:00 05/07/21 01:00 05/07/21 01:10 Temperature 97.4 F L Pulse Rate 60 63 67 Respiratory Rate 20 18 18 Blood Pressure 139/59 L Pulse Oximetry 95 05/07/21 04:00 05/07/21 06:00 05/07/21 08:00 Temperature 97.8 F 98.0 F Pulse Rate 85 56 L 61 Respiratory Rate 18 20 Blood Pressure 128/84 114/50 L Pulse Oximetry 99 100 05/07/21 08:03 04/22
--- NOTE | 2021-05-07 11:38 | PCNFU ---
Nutrition Follow-Up Complete: Inadequate oral intake related to COVID, altered mental status as evidenced by intake records. Goal: Patient to meet estimated nutritional needs. Patient is progressing towards goal. We will continue current goal. Pt current nutrition is SB Level 6/DBCC Last recorded weight is 75 kg, up from 74.2 kg on admit. Bowel Motility: NO BM reported. Labs Reviewed:PO4 4.7,Mg 2.6,Na 134,Glu 49 Meds Noted:Lovenox, Miralax, Glucophage,Keppra, Synthroid. Additional Notes: Patient called today due to COVID 19 precautions. Oral Intake has improved 50-100% of meals. Diet supplements of Glucerna shakes being consumed providing an additional 220 kcals and 10 gms protein. Agree with current diet orders. Monitoring: Follow up every 5 days.
[2021-05-07] MEDS: INSULIN ASPART (*BKC) 100 UNITS/ML 8 UNITS SUB-Q (13:17)
[2021-05-07 13:19] LABS: Glucose Point of Care 124 mg/dl (65-105)
[2021-05-07 17:59] LABS: Glucose Point of Care 28 mg/dl (65-105)
[2021-05-07 18:31] LABS: Glucose Point of Care 86 mg/dl (65-105)
[2021-05-07 22:28] LABS: Glucose Point of Care 135 mg/dl (65-105)
[2021-05-08] VITALS (18 sets, daily range): BP systolic 116–126; BP diastolic 47–63; PULSE 55–78; RESP 12–22; TEMP 36.2–37.1; O2SAT 90–100
[2021-05-08] MEDS: ALBUTEROL SULFATE NEB 2.5 MG/0.5 ML INH INHALATION ×2 (02:39→09:37)
[2021-05-08] MEDS: LEVOTHYROXINE SODIUM INJ 100 MCG/5 ML VIAL 56 MCG IV PUSH (05:50)
[2021-05-08 06:49] LABS: Basophils Percent Auto 0.1 % (0.2-1.2); Eosinophils Percent Auto 0.4 % (0-4.4); Hematocrit 28.2 % (37.0-47.0); Hemoglobin 9.1 g/dL (12.0-15.0); Immature Granulocyte Absolute 0.15 K/mm3 (0.00-0.031); Immature Granulocyte Percent A 1.8 % (0-0.5); Lymphocytes Absolute Auto 0.67 K/mm3 (0.9-3.2); Lymphocytes Percent Auto 8.2 % (18.3-44.2); Mean Corpuscular HGB Conc 32.3 g/dl (32-36); Mean Corpuscular Hemoglobin 30.2 pg (26-34); Mean Corpuscular Volume 93.7 fl (80-100); Mean Platelet Volume 10.6 fl (7.4-10.4); Monocytes Absolute Auto 0.6 K/mm3 (0.1-0.6); Monocytes Percent Auto 7.2 % (2.6-8.5); Neutrophils Absolute Auto 6.7 K/mm3 (1.3-6.7); Neutrophils Percent Auto 82.3 % (45.5-73.1); Platelet Count Result 176 k/mm3 (150-375); Red Blood Count 3.01 M/mm3 (4.2-5.4); Red Cell Distribution Width 14.7 % (11.5-14.5); White Blood Count 8.2 K/mm3 (4.5-10.0)
[2021-05-08 07:10] LABS: Alanine Aminotransferase 35 U/L (4-35); Albumin Level 2.8 g/dL (3.5-5.1); Alkaline Phosphatase 55 U/L (38-126); Anion Gap 3 mmol/L (8-16); Aspartate Amino Transferase 60 U/L (14-36); Bilirubin,Total 0.6 mg/dL (0.2-1.3); Blood Urea Nitrogen 25 mg/dL (7-17); Calcium 10.1 mg/dL (8.4-10.2); Carbon Dioxide 29 mmol/L (22-30); Chloride 103 mmol/L (98-107); Estimated CRCL calculation 44 ml/min; Estimated Glomerular Filt Rate 60; Glucose 53 mg/dL (65-110); Magnesium 2.4 mg/dL (1.6-2.3); Phosphorus 4.4 mg/dL (2.5-4.5); Potassium 4.8 mmol/L (3.4-5.0); Sodium 135 mmol/L (137-145)
[2021-05-08 08:14] LABS: Glucose Point of Care 117 mg/dl (65-105)
[2021-05-08] MEDS: NEBIVOLOL HCL 5 MG TABLET 40 MG PO (10:21)
[2021-05-08] MEDS: BARICITINIB 2 MG TABLET BY MOUTH (10:24)
[2021-05-08] MEDS: amLODIPine BESYLATE 5 MG TABLET 10 MG PO (10:24)
[2021-05-08] MEDS: levETIRAcetam 500 MG TABLET PO ×2 (10:24→20:13)
[2021-05-08] MEDS: CITALOPRAM HYDROBROMIDE 20 MG TABLET PO (10:24)
[2021-05-08] MEDS: ENOXAPARIN 40 MG/0.4 ML SYRINGE SUB-Q (10:24)
[2021-05-08] MEDS: metFORMIN HCL 500 MG TABLET PO ×2 (10:24→17:43)
[2021-05-08] MEDS: polyethylene glycoL 3350 17 GM POWD.PACK PO (10:26)
[2021-05-08] MEDS: INSULIN GLARGINE (*BKC) 100 UNITS/ML 55 UNITS SUB-Q (10:38)
--- NOTE | 2021-05-08 12:13 | WPDNEUROPN ---
Objective Data Vital Signs Vital Signs: Vital Signs - 24 hr 05/07/21 16:00 05/07/21 20:00 05/07/21 21:38 Temperature 36.9 C 36.1 C L Pulse Rate 67 54 L 67 Respiratory Rate 16 18 18 Blood Pressure 131/48 L 134/50 L Pulse Oximetry 96 96 95 05/08/21 00:00 05/08/21 02:15 05/08/21 02:39 Temperature 36.7 C Pulse Rate 56 L 62 Respiratory Rate 18 18 Blood Pressure 126/52 L Pulse Oximetry 97 98 05/08/21 02:52 05/08/21 04:00 05/08/21 04:52 Temperature 36.2 C L Pulse Rate 55 L 58 L Respiratory Rate 18 20 Blood Pressure 124/47 L Pulse Oximetry 97 97 100 05/08/21 08:00 05/08/21 08:49 05/08/21 09:35 Temperature 36.7 C Pulse Rate 57 L 55 L 63 Respiratory Rate 12 18 Blood Pressure 116/62 Pulse Oximetry 98 05/08/21 09:39 05/08/21 09:48 05/08/21 10:21 Temperature Pulse Rate 61 78 Respiratory Rate 18 Blood Pressure Pulse Oximetry 92 Intake/Output Intake/Output: Intake & Output 05/05/21 05/06/21 05/07/21 05/08/21 23:59 23:59 23:59 23:59 Intake Total 2710 1380 1040 390 Output Total 6339 172 5887 50 Balance 1635 630 -210 340 Meds/Results Medications: Active Medications Generic Name Dose Route Start Last Admin Trade Name Freq PRN Reason Stop Dose Admin Acetaminophen 650 mg 04/26/21 14:20 04/26/21 14:32 Acetaminophen 325 Mg Tablet PO 650 mg Q6H PRN Administration Mild Pain (1-3) or Fever Albuterol 2 puff 05/08/21 14:00 Albuterol Sulfate (*Sp) Aerosol 1 Puff INHALATION Q6HRT [facility] Amlodipine Besylate 10 mg 04/24/21 09:00 05/08/21 10:24 Amlodipine Besylate 5 Mg Tablet PO 10 mg DAILY MANUEL Administration Baricitinib 2 mg 04/25/21 14:00 05/08/21 10:24 Baricitinib 2 Mg Tablet BY MOUTH 05/13/21 09:01 2 mg DAILY MANUEL Administration Bisacodyl 5 mg 04/27/21 12:52 Bisacodyl 5 Mg Tablet Ec PO QAM PRN Constipation Citalopram Hydrobromide 20 mg 04/24/21 09:00 05/08/21 10:24 Citalopram Hydrobromide 20 Mg Tablet PO 20 mg DAILY MANUEL Administration Dextrose 12.5 gm 04/24/21 08:53 05/05/21 08:43 Dextrose 50% 25 Gm/50 Ml Syringe IV PUSH 12.5 gm PRN PRN Administration Hypoglycemia Protocol Enoxaparin Sodium 40 mg 04/24/21 09:00 05/08/21 10:24 Enoxaparin 40 Mg/0.4 Ml Syringe SUB-Q 40 mg DAILY MANUEL Administration Glucagon 1 mg 04/24/21 08:53 Glucagon For Inj 1 Mg Vial IM PRN PRN Hypoglycemia Protocol Glucose 15 gm 04/24/21 08:53 05/07/21 17:54 Glucose Oral Gel 15 Gm Of Glucse In 37.5 Gm Tube PO 15 gm PRN PRN Administration Hypoglycemia Protocol Dextrose 1,000 mls @ 100 mls/hr 04/24/21 08:53 Dextrose 5% 1,000 Ml IVPB PRN PRN Hypoglycemia Protocol Insulin Aspart 2 - 5 units 05/02/21 17:00 05/08/21 08:37 Insulin Aspart (*Bkc) 100 Units/Ml SUB-Q Not Given TIDWM MANUEL Protocol Insulin Glargine 55 units 05/03/21 13:40 05/08/21 10:38 Insulin Glargine (*Bkc) 100 Units/Ml SUB-Q 50 units DAILY MANUEL Administration Levetiracetam 500 mg 05/02/21 00:00 05/08/21 10:24 Levetiracetam 500 Mg Tablet PO 500 mg Q12HR MANUEL Administration Levothyroxine Sodium 56 mcg 04/30/21 06:30 05/08/21 05:50 Levothyroxine Sodium Inj 100 Mcg/5 Ml Vial IV PUSH 56 mcg DAILY@0630 MANUEL Administration Metformin HCl 500 mg 05/04/21 07:00 05/08/21 10:24 Metformin Hcl 500 Mg Tablet PO 500 mg BIDWM MANUEL Administration Nebivolol 40 mg 04/24/21 09:00 05/08/21 10:21 Nebivolol Hcl 5 Mg Tablet PO 40 mg DAILY MANUEL Administration Polyethylene Glycol 17 gm 04/27/21 12:55 05/08/21 10:26 Polyethylene Glycol 3350 17 Gm Powd.Pack PO 17 gm QAM MANUEL Administration Radiology Results: ITS Impressions Chest CTA 04/23/21 22:22 IMPRESSION: 1. No pulmonary embolus. Sensitivity is moderately decreased by motion artifact. 2. Diffuse lung disease, consistent with COVID-19 pneumonia. 3. Moderate em
[2021-05-08 12:17] LABS: Glucose Point of Care 189 mg/dl (65-105)
[2021-05-08] MEDS: ALBUTEROL SULFATE (*SP) AEROSOL 1 PUFF 2 PUFF INHALATION ×2 (13:10→20:13)
--- NOTE | 2021-05-08 13:43 | P.PNIM_ITS ---
Progress Note: A&P Assessment and Plan (1) Pneumonia due to COVID-19 virus: Code(s): U07.1 - COVID-19; J12.82 - Pneumonia due to coronavirus disease 2019 Status: Acute Assessment and Plan: * Continue decadron and lovenox * Remdesivir completed 10 days on 05/03/21 * Inflammatory markers CRP of 3.4 05/03/21 * continue to wean oxygen * D.Dimer is trending down at 9.64 (05/03/21) * CTA NO PE, worsening covid PNA (04/29/21) * baricitinib and has been started 04/25/21, placed on hold 05/01/21, restarted 05/04/21 * plasma [04/24/21] * Abdelrahman and IS therapy * Albuterol nebs * Lasix 40mg IV once repeated (2) Acute respiratory failure with hypoxia: Code(s): J96.01 - Acute respiratory failure with hypoxia Status: Acute Assessment and Plan: * Continue supplemental o2 * wean to maintain saturation greater than 90% (3) Emphysema/COPD: Code(s): J43.9 - Emphysema, unspecified Status: Acute Assessment and Plan: * continue tx as above (4) Type 2 diabetes mellitus: Code(s): E11.9 - Type 2 diabetes mellitus without complications Status: Acute Assessment and Plan: * Glucose on labs was 151 POCT was 146 * Glucose noted to be in the 400s 05/03/21, given 10U of reg once * continue 8 units with meals with sliding scale as well as Lantus at 55 units * a1c 6.6, good control at home with her home regimen * trend very closely PO intake * continue accuchecks ACHS (5) Hypertension: Code(s): I10 - Essential (primary) hypertension Status: Acute Assessment and Plan: * Last bp 149/50 * continue norvasc and bystolic * Trend blood pressure * Adjust medications as needed (6) Hypercalcemia: Code(s): E83.52 - Hypercalcemia Status: Acute Assessment and Plan: * mild, could be due to dehydration * hx of breast cancer * would repeat outpt after acute illness resolved. * PTH pending (7) Hyponatremia: Code(s): E87.1 - Hypo-osmolality and hyponatremia Status: Acute Assessment and Plan: * last sodium 136 * will continue to trend * Seems to be resolved at this time Additional Plan Covid pneumonia with acute respiratory failure requiring HF NC 10L Completed remdesivir, continuing dexamethasone & baricitinib Lovenox for AC continue t/x of underlying problems including Dm2 and HTN Wean O2 as tolerated, guarded prognosis Time Spent With Patient Time with patient: less than 15 minutes Subjective Date/time seen: 05/08/21 13:43 no change in oxygenation req looks comfortable tolerating diet Review of Systems Review of Systems: All systems reviewed & are unremarkable except as noted in HPI and below Exam Const: General: no acute distress Resp: Effort & Inspection: normal respiratory effort Auscultation: clear to auscultation bilaterally Cardio: Rate: regular rate Rhythm: regular rhythm GI: GI Palp: Yes Soft to palpation and No Tenderness to palpation present (GI) Objective Data Vital Signs Vital Signs: Vital Signs - 24 hr 05/07/21 16:00 05/07/21 20:00 05/07/21 21:38 Temperature 98.5 F 97.0 F L Pulse Rate 67 54 L 67 Respiratory Rate 16 18 18 Blood Pressure 131/48 L 134/50 L Pulse Oximetry 96 96 95
--- NOTE | 2021-05-08 13:43 | PM.IMPN ---
Progress Note: A&P Assessment and Plan (1) Pneumonia due to COVID-19 virus: Code(s): U07.1 - COVID-19; J12.82 - Pneumonia due to coronavirus disease 2019 Status: Acute Assessment and Plan: Continue decadron and lovenox Remdesivir completed 10 days on 05/03/21 Inflammatory markers CRP of 3.4 05/03/21 continue to wean oxygen D.Dimer is trending down at 9.64 (05/03/21) CTA NO PE, worsening covid PNA (04/29/21) baricitinib and has been started 04/25/21, placed on hold 05/01/21, restarted 05/04/21 plasma [04/24/21] Abdelrahman and IS therapy Albuterol nebs Lasix 40mg IV once repeated (2) Acute respiratory failure with hypoxia: Code(s): J96.01 - Acute respiratory failure with hypoxia Status: Acute Assessment and Plan: Continue supplemental o2 wean to maintain saturation greater than 90% (3) Emphysema/COPD: Code(s): J43.9 - Emphysema, unspecified Status: Acute Assessment and Plan: continue tx as above (4) Type 2 diabetes mellitus: Code(s): E11.9 - Type 2 diabetes mellitus without complications Status: Acute Assessment and Plan: Glucose on labs was 151 POCT was 146 Glucose noted to be in the 400s 05/03/21, given 10U of reg once continue 8 units with meals with sliding scale as well as Lantus at 55 units a1c 6.6, good control at home with her home regimen trend very closely PO intake continue accuchecks ACHS (5) Hypertension: Code(s): I10 - Essential (primary) hypertension Status: Acute Assessment and Plan: Last bp 149/50 continue norvasc and bystolic Trend blood pressure Adjust medications as needed (6) Hypercalcemia: Code(s): E83.52 - Hypercalcemia Status: Acute Assessment and Plan: mild, could be due to dehydration hx of breast cancer would repeat outpt after acute illness resolved. PTH pending (7) Hyponatremia: Code(s): E87.1 - Hypo-osmolality and hyponatremia Status: Acute Assessment and Plan: last sodium 136 will continue to trend Seems to be resolved at this time Additional Plan Covid pneumonia with acute respiratory failure requiring HF NC 10L Completed remdesivir, continuing dexamethasone & baricitinib Lovenox for AC continue t/x of underlying problems including Dm2 and HTN Wean O2 as tolerated, guarded prognosis Time Spent With Patient Time with patient: less than 15 minutes Subjective Date/time seen: 05/08/21 13:43 no change in oxygenation req looks comfortable tolerating diet Review of Systems Review of Systems: All systems reviewed & are unremarkable except as noted in HPI and below Exam Const: General: no acute distress Resp: Effort & Inspection: normal respiratory effort Auscultation: clear to auscultation bilaterally Cardio: Rate: regular rate Rhythm: regular rhythm GI: GI Palp: Yes Soft to palpation and No Tenderness to palpation present (GI) Objective Data Vital Signs Vital Signs: Vital Signs - 24 hr 05/07/21 16:00 05/07/21 20:00 05/07/21 21:38 Temperature 98.5 F 97.0 F L Pulse Rate 67 54 L 67 Respiratory Rate 16 18 18 Blood Pressure 131/48 L 134/50 L Pulse Oximetry 96 96 95 05/08/21 00:00 05/08/21 02:15 05/08/21 02:39 Temperature 98.1 F Pulse Rate 56 L 62 Respiratory Rate 18 18 Blood Pressure 126/52 L Pulse Oximetry 97 98 05/08/21 02:52 05/08/21 04:00 05/08/21 04:52 Temperature 97.1 F L Pulse Rate 55 L 58 L Respiratory Rate 18 20 Blood Pressure 124/47 L Pulse Oximetry 97 97 100 05/08/21 08:00 05/08/21 08:49 05/08/21 09:35 Temperature 98.0 F Pulse Rate 57 L 55 L 63 Respiratory Rate 12 18 Blood Pressure 116/62 Pulse Oximetry 98 05/08/21 09:39 05/08/21 09:48 05/08/21 10:20 Temperature Pulse Rate 61 Respiratory Rate 18 Blood Pressure Pulse Oximetry 92 90 05/08/21 10:21 05/08/21 13:34 Temperature 98.5
[2021-05-08 17:37] LABS: Glucose Point of Care 168 mg/dl (65-105)
[2021-05-08 21:27] LABS: Glucose Point of Care 234 mg/dl (65-105)
[2021-05-09] VITALS (14 sets, daily range): BP systolic 117–149; BP diastolic 49–64; PULSE 51–97; RESP 12–22; TEMP 36.3–37.1; O2SAT 90–97
[2021-05-09] MEDS: ALBUTEROL SULFATE (*SP) AEROSOL 1 PUFF 2 PUFF INHALATION ×4 (02:55→20:23)
[2021-05-09] MEDS: LEVOTHYROXINE SODIUM INJ 100 MCG/5 ML VIAL 56 MCG IV PUSH (06:00)
[2021-05-09 07:43] LABS: Alanine Aminotransferase 36 U/L (4-35); Albumin Level 2.9 g/dL (3.5-5.1); Alkaline Phosphatase 63 U/L (38-126); Anion Gap 3 mmol/L (8-16); Aspartate Amino Transferase 48 U/L (14-36); Bilirubin,Total 0.5 mg/dL (0.2-1.3); Blood Urea Nitrogen 20 mg/dL (7-17); Calcium 10.3 mg/dL (8.4-10.2); Carbon Dioxide 29 mmol/L (22-30); Chloride 104 mmol/L (98-107); Estimated CRCL calculation 44 ml/min; Estimated Glomerular Filt Rate 60; Glucose 50 mg/dL (65-110); Magnesium 2.3 mg/dL (1.6-2.3); Phosphorus 4.1 mg/dL (2.5-4.5); Potassium 4.3 mmol/L (3.4-5.0); Sodium 136 mmol/L (137-145)
[2021-05-09] MEDS: GLUCOSE ORAL GEL 15 GM OF GLUCSE IN 37.5 GM TUBE PO (07:46)
[2021-05-09 07:48] LABS: Basophils Percent Auto 0.1 % (0.2-1.2); Eosinophils Percent Auto 0.3 % (0-4.4); Hematocrit 29.1 % (37.0-47.0); Hemoglobin 9.4 g/dL (12.0-15.0); Immature Granulocyte Absolute 0.11 K/mm3 (0.00-0.031); Immature Granulocyte Percent A 1.4 % (0-0.5); Lymphocytes Absolute Auto 0.69 K/mm3 (0.9-3.2); Lymphocytes Percent Auto 8.8 % (18.3-44.2); Mean Corpuscular HGB Conc 32.3 g/dl (32-36); Mean Corpuscular Hemoglobin 30.2 pg (26-34); Mean Corpuscular Volume 93.6 fl (80-100); Mean Platelet Volume 10.6 fl (7.4-10.4); Monocytes Absolute Auto 0.6 K/mm3 (0.1-0.6); Monocytes Percent Auto 8.1 % (2.6-8.5); Neutrophils Absolute Auto 6.4 K/mm3 (1.3-6.7); Neutrophils Percent Auto 81.3 % (45.5-73.1); Platelet Count Result 155 k/mm3 (150-375); Red Blood Count 3.11 M/mm3 (4.2-5.4); Red Cell Distribution Width 14.8 % (11.5-14.5); White Blood Count 7.9 K/mm3 (4.5-10.0)
[2021-05-09 08:15] LABS: Glucose Point of Care 52 mg/dl (65-105)
[2021-05-09 08:16] LABS: Glucose Point of Care 97 mg/dl (65-105)
--- NOTE | 2021-05-09 09:07 | P.PNIM_ITS ---
Progress Note: A&P Assessment and Plan (1) Pneumonia due to COVID-19 virus: Code(s): U07.1 - COVID-19; J12.82 - Pneumonia due to coronavirus disease 2019 Status: Acute Assessment and Plan: * Continue decadron and lovenox * Remdesivir completed 10 days on 05/03/21 * Inflammatory markers CRP of 3.4 05/03/21 * continue to wean oxygen * D.Dimer is trending down at 9.64 (05/03/21) * CTA NO PE, worsening covid PNA (04/29/21) * baricitinib and has been started 04/25/21, placed on hold 05/01/21, restarted 05/04/21 * plasma [04/24/21] * Abdelrahman and IS therapy * Albuterol nebs * Lasix 40mg IV once repeated (2) Acute respiratory failure with hypoxia: Code(s): J96.01 - Acute respiratory failure with hypoxia Status: Acute Assessment and Plan: * Continue supplemental o2 * wean to maintain saturation greater than 90% (3) Emphysema/COPD: Code(s): J43.9 - Emphysema, unspecified Status: Acute Assessment and Plan: * continue tx as above (4) Type 2 diabetes mellitus: Code(s): E11.9 - Type 2 diabetes mellitus without complications Status: Acute Assessment and Plan: * Glucose on labs was 151 POCT was 146 * Glucose noted to be in the 400s 05/03/21, given 10U of reg once * continue 8 units with meals with sliding scale as well as Lantus at 55 units * a1c 6.6, good control at home with her home regimen * trend very closely PO intake * continue accuchecks ACHS (5) Hypertension: Code(s): I10 - Essential (primary) hypertension Status: Acute Assessment and Plan: * Last bp 149/50 * continue norvasc and bystolic * Trend blood pressure * Adjust medications as needed (6) Hypercalcemia: Code(s): E83.52 - Hypercalcemia Status: Acute Assessment and Plan: * mild, could be due to dehydration * hx of breast cancer * would repeat outpt after acute illness resolved. * PTH pending (7) Hyponatremia: Code(s): E87.1 - Hypo-osmolality and hyponatremia Status: Acute Assessment and Plan: * last sodium 136 * will continue to trend * Seems to be resolved at this time Additional Plan completed steroids and remdesivir few days left of baricitinib wean O2, now down to 4L Time Spent With Patient Time with patient: less than 15 minutes Subjective Date/time seen: 05/09/21 09:07 doing well no acute complaints resting comfortably Review of Systems Review of Systems: All systems reviewed & are unremarkable except as noted in HPI and below Exam Const: General: no acute distress Neck: Neck: no JVD Resp: Effort & Inspection: normal respiratory effort Auscultation: clear to auscultation bilaterally Cardio: Rate: regular rate Rhythm: regular rhythm GI: GI Palp: Yes Soft to palpation and No Tenderness to palpation present (GI) Objective Data Vital Signs Vital Signs: Vital Signs - 24 hr 05/08/21 09:35 05/08/21 09:39 05/08/21 09:48 Temperature Pulse Rate 63 61 Respiratory Rate 18 18 Blood Pressure Pulse Oximetry 92 05/08/21 10:20 05/08/21 10:21 05/08/21 12:00 Temperature Pulse Rate 78 65 Respiratory Rate Blood Pr
--- NOTE | 2021-05-09 09:07 | PM.IMPN ---
Progress Note: A&P Assessment and Plan (1) Pneumonia due to COVID-19 virus: Code(s): U07.1 - COVID-19; J12.82 - Pneumonia due to coronavirus disease 2019 Status: Acute Assessment and Plan: Continue decadron and lovenox Remdesivir completed 10 days on 05/03/21 Inflammatory markers CRP of 3.4 05/03/21 continue to wean oxygen D.Dimer is trending down at 9.64 (05/03/21) CTA NO PE, worsening covid PNA (04/29/21) baricitinib and has been started 04/25/21, placed on hold 05/01/21, restarted 05/04/21 plasma [04/24/21] Abdelrahman and IS therapy Albuterol nebs Lasix 40mg IV once repeated (2) Acute respiratory failure with hypoxia: Code(s): J96.01 - Acute respiratory failure with hypoxia Status: Acute Assessment and Plan: Continue supplemental o2 wean to maintain saturation greater than 90% (3) Emphysema/COPD: Code(s): J43.9 - Emphysema, unspecified Status: Acute Assessment and Plan: continue tx as above (4) Type 2 diabetes mellitus: Code(s): E11.9 - Type 2 diabetes mellitus without complications Status: Acute Assessment and Plan: Glucose on labs was 151 POCT was 146 Glucose noted to be in the 400s 05/03/21, given 10U of reg once continue 8 units with meals with sliding scale as well as Lantus at 55 units a1c 6.6, good control at home with her home regimen trend very closely PO intake continue accuchecks ACHS (5) Hypertension: Code(s): I10 - Essential (primary) hypertension Status: Acute Assessment and Plan: Last bp 149/50 continue norvasc and bystolic Trend blood pressure Adjust medications as needed (6) Hypercalcemia: Code(s): E83.52 - Hypercalcemia Status: Acute Assessment and Plan: mild, could be due to dehydration hx of breast cancer would repeat outpt after acute illness resolved. PTH pending (7) Hyponatremia: Code(s): E87.1 - Hypo-osmolality and hyponatremia Status: Acute Assessment and Plan: last sodium 136 will continue to trend Seems to be resolved at this time Additional Plan completed steroids and remdesivir few days left of baricitinib wean O2, now down to 4L Time Spent With Patient Time with patient: less than 15 minutes Subjective Date/time seen: 05/09/21 09:07 doing well no acute complaints resting comfortably Review of Systems Review of Systems: All systems reviewed & are unremarkable except as noted in HPI and below Exam Const: General: no acute distress Neck: Neck: no JVD Resp: Effort & Inspection: normal respiratory effort Auscultation: clear to auscultation bilaterally Cardio: Rate: regular rate Rhythm: regular rhythm GI: GI Palp: Yes Soft to palpation and No Tenderness to palpation present (GI) Objective Data Vital Signs Vital Signs: Vital Signs - 24 hr 05/08/21 09:35 05/08/21 09:39 05/08/21 09:48 Temperature Pulse Rate 63 61 Respiratory Rate 18 18 Blood Pressure Pulse Oximetry 92 05/08/21 10:20 05/08/21 10:21 05/08/21 12:00 Temperature Pulse Rate 78 65 Respiratory Rate Blood Pressure Pulse Oximetry 90 05/08/21 13:34 05/08/21 16:00 05/08/21 16:42 Temperature 98.5 F 98.3 F Pulse Rate 65 66 61 Respiratory Rate 12 12 Blood Pressure 119/62 117/63 Pulse Oximetry 96 97 05/08/21 20:00 05/09/21 00:00 05/09/21 02:55 Temperature 98.7 F 98.7 F Pulse Rate 64 54 L 72 Respiratory Rate 22 H 22 H 16 Blood Pressure 126/47 L 123/49 L Pulse Oximetry 94 93 05/09/21 04:00 05/09/21 05:53 05/09/21 06:05 Temperature 97.7 F Pulse Rate 63 Respiratory Rate 22 H Blood Pressure 117/61 Pulse Oximetry 93 95 94 05/09/21 06:40 05/09/21 08:43 Temperature 98.4 F Pulse Rate 97 Respiratory Rate 12 Blood Pressure 125/64 Pulse Oximetry 96 97 Intake/Output Intake/Output: Intake & Output 05/06/21 05/07/21
[2021-05-09] MEDS: ACETAMINOPHEN 325 MG TABLET 650 MG PO (10:04)
[2021-05-09] MEDS: ENOXAPARIN 40 MG/0.4 ML SYRINGE SUB-Q (10:04)
[2021-05-09] MEDS: NEBIVOLOL HCL 5 MG TABLET 40 MG PO (10:04)
[2021-05-09] MEDS: amLODIPine BESYLATE 5 MG TABLET 10 MG PO (10:05)
[2021-05-09] MEDS: levETIRAcetam 500 MG TABLET PO ×2 (10:05→20:23)
[2021-05-09] MEDS: metFORMIN HCL 500 MG TABLET PO ×2 (10:05→18:01)
[2021-05-09] MEDS: polyethylene glycoL 3350 17 GM POWD.PACK PO (10:05)
[2021-05-09] MEDS: BARICITINIB 2 MG TABLET BY MOUTH (10:05)
[2021-05-09] MEDS: CITALOPRAM HYDROBROMIDE 20 MG TABLET PO (10:05)
[2021-05-09] MEDS: INSULIN GLARGINE (*BKC) 100 UNITS/ML 45 UNITS SUB-Q (10:06)
[2021-05-09 12:43] LABS: Glucose Point of Care 216 mg/dl (65-105)
[2021-05-09] MEDS: INSULIN ASPART (*BKC) 100 UNITS/ML SUB-Q (12:45)
[2021-05-09 16:54] LABS: Glucose Point of Care 86 mg/dl (65-105)
[2021-05-09 20:53] LABS: Glucose Point of Care 124 mg/dl (65-105)
[2021-05-10] VITALS (11 sets, daily range): BP systolic 116–132; BP diastolic 43–73; PULSE 50–72; RESP 16–22; TEMP 36.2–37.3; O2SAT 91–97
[2021-05-10] MEDS: ALBUTEROL SULFATE (*SP) AEROSOL 1 PUFF 2 PUFF INHALATION ×4 (02:22→20:43)
[2021-05-10 04:16] LABS: Glucose Point of Care 50 mg/dl (65-105)
[2021-05-10 04:16] LABS: Glucose Point of Care 80 mg/dl (65-105)
[2021-05-10] MEDS: WATER FOR IRRIGATION, STERILE 1,000 ML BOTTLE 1000 ML (05:05)
[2021-05-10] MEDS: LEVOTHYROXINE SODIUM INJ 100 MCG/5 ML VIAL 56 MCG IV PUSH (06:17)
[2021-05-10 06:24] LABS: Basophils Percent Auto 0.2 % (0.2-1.2); Eosinophils Percent Auto 0.5 % (0-4.4); Hematocrit 26.9 % (37.0-47.0); Hemoglobin 8.5 g/dL (12.0-15.0); Immature Granulocyte Absolute 0.07 K/mm3 (0.00-0.031); Immature Granulocyte Percent A 1.1 % (0-0.5); Lymphocytes Absolute Auto 0.73 K/mm3 (0.9-3.2); Lymphocytes Percent Auto 11.2 % (18.3-44.2); Mean Corpuscular HGB Conc 31.6 g/dl (32-36); Mean Corpuscular Hemoglobin 30.4 pg (26-34); Mean Corpuscular Volume 96.1 fl (80-100); Mean Platelet Volume 10.4 fl (7.4-10.4); Monocytes Absolute Auto 0.6 K/mm3 (0.1-0.6); Monocytes Percent Auto 9.8 % (2.6-8.5); Neutrophils Absolute Auto 5.1 K/mm3 (1.3-6.7); Neutrophils Percent Auto 77.2 % (45.5-73.1); Platelet Count Result 122 k/mm3 (150-375); Red Cell Distribution Width 14.8 % (11.5-14.5); White Blood Count 6.5 K/mm3 (4.5-10.0)
[2021-05-10 06:38] LABS: Alanine Aminotransferase 32 U/L (4-35); Albumin Level 2.8 g/dL (3.5-5.1); Alkaline Phosphatase 58 U/L (38-126); Anion Gap 1 mmol/L (8-16); Aspartate Amino Transferase 45 U/L (14-36); Bilirubin,Total 0.2 mg/dL (0.2-1.3); Blood Urea Nitrogen 19 mg/dL (7-17); Calcium 10.3 mg/dL (8.4-10.2); Carbon Dioxide 30 mmol/L (22-30); Chloride 105 mmol/L (98-107); Estimated CRCL calculation 44 ml/min; Estimated Glomerular Filt Rate 60; Glucose 70 mg/dL (65-110); Magnesium 2.2 mg/dL (1.6-2.3); Phosphorus 4.1 mg/dL (2.5-4.5); Potassium 4.4 mmol/L (3.4-5.0); Sodium 136 mmol/L (137-145)
[2021-05-10 08:20] LABS: Glucose Point of Care 52 mg/dl (65-105)
[2021-05-10] MEDS: GLUCOSE ORAL GEL 15 GM OF GLUCSE IN 37.5 GM TUBE PO ×2 (08:24→09:00)
[2021-05-10] MEDS: polyethylene glycoL 3350 17 GM POWD.PACK PO (08:26)
[2021-05-10] MEDS: ENOXAPARIN 40 MG/0.4 ML SYRINGE SUB-Q (08:26)
[2021-05-10] MEDS: NEBIVOLOL HCL 5 MG TABLET 40 MG PO (08:27)
[2021-05-10] MEDS: levETIRAcetam 500 MG TABLET PO ×2 (08:28→21:24)
[2021-05-10] MEDS: amLODIPine BESYLATE 5 MG TABLET 10 MG PO (08:28)
[2021-05-10] MEDS: CITALOPRAM HYDROBROMIDE 20 MG TABLET PO (08:28)
[2021-05-10] MEDS: BARICITINIB 2 MG TABLET BY MOUTH (08:28)
[2021-05-10 08:44] LABS: Glucose Point of Care 65 mg/dl (65-105)
[2021-05-10 08:44] LABS: Glucose Point of Care 52 mg/dl (65-105)
[2021-05-10 09:24] LABS: Glucose Point of Care 121 mg/dl (65-105)
--- NOTE | 2021-05-10 10:44 | PM.IMPN ---
Progress Note: A&P Assessment and Plan (1) Pneumonia due to COVID-19 virus: Code(s): U07.1 - COVID-19; J12.82 - Pneumonia due to coronavirus disease 2019 Status: Acute Assessment and Plan: Continue decadron and lovenox Remdesivir completed 10 days on 05/03/21 Inflammatory markers CRP of 3.4 05/03/21 continue to wean oxygen D.Dimer is trending down at 9.64 (05/03/21) CTA NO PE, worsening covid PNA (04/29/21) baricitinib and has been started 04/25/21, placed on hold 05/01/21, restarted 05/04/21 plasma [04/24/21] Abdelrahman and IS therapy Albuterol nebs Lasix 40mg IV once repeated Additional Plan wean o2 as tolerated baricitinb until 05/13 Subjective Date/time seen: 05/10/21 10:44 resting comfortably no acute complaints Review of Systems Review of Systems: All systems reviewed & are unremarkable except as noted in HPI and below Exam Const: General: no acute distress Neck: Neck: no JVD Resp: Effort & Inspection: normal respiratory effort Auscultation: clear to auscultation bilaterally Cardio: Rate: regular rate Rhythm: regular rhythm GI: GI Palp: Yes Soft to palpation and No Tenderness to palpation present (GI) Objective Data Vital Signs Vital Signs: Vital Signs - 24 hr 05/09/21 11:59 05/09/21 12:00 05/09/21 16:00 Temperature 98.2 F Pulse Rate 62 55 L 51 L Respiratory Rate 14 Blood Pressure 149/62 H Pulse Oximetry 91 05/09/21 16:35 05/09/21 20:00 05/10/21 00:00 Temperature 98.3 F 97.3 F L 97.9 F Pulse Rate 71 53 L 50 L Respiratory Rate 12 20 16 Blood Pressure 132/61 130/59 L 116/43 L Pulse Oximetry 95 93 95 05/10/21 02:22 05/10/21 04:00 05/10/21 06:41 Temperature 97.8 F Pulse Rate 57 L 51 L Respiratory Rate 18 Blood Pressure 117/48 L Pulse Oximetry 92 93 97 05/10/21 08:00 05/10/21 08:27 Temperature 97.1 F L Pulse Rate 55 L 64 Respiratory Rate 20 Blood Pressure 132/48 L Pulse Oximetry 96 Intake/Output Intake/Output: Intake & Output 05/07/21 05/08/21 05/09/21 05/10/21 23:59 23:59 23:59 23:59 Intake Total 7848 866 5747 480 Output Total 1250 1500 3540 [facility] -388 -302 -9274 480 Meds/Results Medications: Active Medications Generic Name Dose Route Start Last Admin Trade Name Freq PRN Reason Stop Dose Admin Acetaminophen 650 mg 04/26/21 14:20 05/09/21 10:04 Acetaminophen 325 Mg Tablet PO 650 mg Q6H PRN Administration Mild Pain (1-3) or Fever Albuterol 2 puff 05/08/21 14:00 05/10/21 08:42 Albuterol Sulfate (*Sp) Aerosol 1 Puff INHALATION 2 puff Q6HRT MANUEL Administration Amlodipine Besylate 10 mg 04/24/21 09:00 05/10/21 08:28 Amlodipine Besylate 5 Mg Tablet PO 10 mg DAILY MANUEL Administration Baricitinib 2 mg 04/25/21 14:00 05/10/21 08:28 Baricitinib 2 Mg Tablet BY MOUTH 05/13/21 09:01 2 mg DAILY MANUEL Administration Bisacodyl 5 mg 04/27/21 12:52 Bisacodyl 5 Mg Tablet Ec PO QAM PRN Constipation Citalopram Hydrobromide 20 mg 04/24/21 09:00 05/10/21 08:28 Citalopram Hydrobromide 20 Mg Tablet PO 20 mg DAILY MANUEL Administration Dextrose 12.5 gm 04/24/21 08:53 05/05/21 08:43 Dextrose 50% 25 Gm/50 Ml Syringe IV PUSH 12.5 gm PRN PRN Administration Hypoglycemia Protocol Enoxaparin Sodium 40 mg 04/24/21 09:00 05/10/21 08:26 Enoxaparin 40 Mg/0.4 Ml Syringe SUB-Q 40 mg DAILY MANUEL Administration Glucagon 1 mg 04/24/21 08:53 Glucagon For Inj 1 Mg Vial IM PRN PRN Hypoglycemia Protocol Glucose 15 gm 04/24/21 08:53 05/10/21 09:00 Glucose Oral Gel 15 Gm Of Glucse In 37.5 Gm Tube PO 15 gm PRN PRN Administration Hypoglycemia Protocol Dextrose 1,000 mls @ 100 mls/hr 04/24/21 08:53 Dextrose 5% 1,000 Ml IVPB PRN PRN Hypoglycemia Protocol Insulin Aspart 2 - 5 units 05/02/21 17:00 05/10/21 08:28 Insulin Aspart (*Bkc) 100 Units/Ml SUB-Q Not Given TIDWM MANUEL Prot
[2021-05-10 12:58] LABS: Glucose Point of Care 205 mg/dl (65-105)
[2021-05-10] MEDS: INSULIN ASPART (*BKC) 100 UNITS/ML SUB-Q (13:14)
[2021-05-10] MEDS: INSULIN GLARGINE (*BKC) 100 UNITS/ML 45 UNITS SUB-Q (13:14)
[2021-05-10] MEDS: metFORMIN HCL 500 MG TABLET PO ×2 (13:15→17:45)
[2021-05-10 17:17] LABS: Glucose Point of Care 87 mg/dl (65-105)
[2021-05-10 23:57] LABS: Glucose Point of Care 174 mg/dl (65-105)
[2021-05-11] VITALS (10 sets, daily range): BP systolic 107–120; BP diastolic 41–61; PULSE 50–61; RESP 16–18; TEMP 35.7–36.7; O2SAT 90–100
[2021-05-11] MEDS: ALBUTEROL SULFATE (*SP) AEROSOL 1 PUFF 2 PUFF INHALATION ×4 (02:14→20:20)
[2021-05-11] MEDS: LEVOTHYROXINE SODIUM INJ 100 MCG/5 ML VIAL 56 MCG IV PUSH (06:06)
[2021-05-11 06:29] LABS: Basophils Percent Auto 0.2 % (0.2-1.2); Eosinophils Absolute Auto 0.1 K/mm3 (0-0.3); Eosinophils Percent Auto 0.8 % (0-4.4); Hematocrit 26.9 % (37.0-47.0); Hemoglobin 8.6 g/dL (12.0-15.0); Immature Granulocyte Absolute 0.09 K/mm3 (0.00-0.031); Immature Granulocyte Percent A 1.4 % (0-0.5); Lymphocytes Absolute Auto 0.92 K/mm3 (0.9-3.2); Lymphocytes Percent Auto 14.4 % (18.3-44.2); Mean Corpuscular Hemoglobin 30.9 pg (26-34); Mean Corpuscular Volume 96.8 fl (80-100); Mean Platelet Volume 10.7 fl (7.4-10.4); Monocytes Absolute Auto 0.7 K/mm3 (0.1-0.6); Monocytes Percent Auto 11.1 % (2.6-8.5); Neutrophils Absolute Auto 4.6 K/mm3 (1.3-6.7); Neutrophils Percent Auto 72.1 % (45.5-73.1); Platelet Count Result 118 k/mm3 (150-375); Red Blood Count 2.78 M/mm3 (4.2-5.4); Red Cell Distribution Width 14.7 % (11.5-14.5); White Blood Count 6.4 K/mm3 (4.5-10.0)
[2021-05-11 06:46] LABS: Alanine Aminotransferase 30 U/L (4-35); Albumin Level 2.9 g/dL (3.5-5.1); Alkaline Phosphatase 63 U/L (38-126); Anion Gap 2 mmol/L (8-16); Aspartate Amino Transferase 39 U/L (14-36); Bilirubin,Total 0.3 mg/dL (0.2-1.3); Blood Urea Nitrogen 18 mg/dL (7-17); Calcium 10.1 mg/dL (8.4-10.2); Carbon Dioxide 31 mmol/L (22-30); Chloride 105 mmol/L (98-107); Estimated CRCL calculation 40 ml/min; Estimated Glomerular Filt Rate 53; Glucose 47 mg/dL (65-110); Magnesium 2.3 mg/dL (1.6-2.3); Phosphorus 3.5 mg/dL (2.5-4.5); Potassium 4.5 mmol/L (3.4-5.0); Sodium 138 mmol/L (137-145)
[2021-05-11] MEDS: GLUCOSE ORAL GEL 15 GM OF GLUCSE IN 37.5 GM TUBE PO (06:49)
[2021-05-11 07:26] LABS: Glucose Point of Care 99 mg/dl (65-105)
[2021-05-11 08:26] LABS: Glucose Point of Care 126 mg/dl (65-105)
[2021-05-11] MEDS: NEBIVOLOL HCL 5 MG TABLET 40 MG PO (08:45)
[2021-05-11] MEDS: ENOXAPARIN 40 MG/0.4 ML SYRINGE SUB-Q ×2 (08:45→08:50)
[2021-05-11] MEDS: BARICITINIB 2 MG TABLET BY MOUTH (08:45)
[2021-05-11] MEDS: levETIRAcetam 500 MG TABLET PO ×2 (08:46→20:35)
[2021-05-11] MEDS: amLODIPine BESYLATE 5 MG TABLET 10 MG PO (08:46)
[2021-05-11] MEDS: metFORMIN HCL 500 MG TABLET PO ×2 (08:46→17:11)
[2021-05-11] MEDS: CITALOPRAM HYDROBROMIDE 20 MG TABLET PO (08:46)
[2021-05-11] MEDS: polyethylene glycoL 3350 17 GM POWD.PACK PO (08:51)
[2021-05-11] MEDS: INSULIN GLARGINE (*BKC) 100 UNITS/ML 37 UNITS SUB-Q (09:13)
[2021-05-11 11:39] LABS: Glucose Point of Care 129 mg/dl (65-105)
--- NOTE | 2021-05-11 15:33 | PM.IMPN ---
Progress Note: A&P Assessment and Plan (1) Pneumonia due to COVID-19 virus: Code(s): U07.1 - COVID-19; J12.82 - Pneumonia due to coronavirus disease 2019 Status: Acute Assessment and Plan: Continue decadron and lovenox Remdesivir completed 10 days on 05/03/21 Inflammatory markers CRP of 3.4 05/03/21 continue to wean oxygen D.Dimer is trending down at 9.64 (05/03/21) CTA NO PE, worsening covid PNA (04/29/21) baricitinib and has been started 04/25/21, placed on hold 05/01/21, restarted 05/04/21 plasma [04/24/21] Abdelrahman and IS therapy Albuterol nebs Lasix 40mg IV once repeated 05/11/21 15:33 today patient is feeling much better not a short of breath, sitting on chair eating her breakfast, requiring high-flow oxygen, will continue to monitor and trend her oxygen once a dropped below 6 L will do the discharge planning, patient did participate in occupational therapy are oxygen saturation did drop, will continue present management will continue to monitor. Additional Plan wean o2 as tolerated baricitinb until 05/13 Subjective Date/time seen: 05/11/21 15:33 today patient is feeling much better not a short of breath, sitting on chair eating her breakfast, requiring high-flow oxygen, will continue to monitor and trend her oxygen once a dropped below 6 L will do the discharge planning, patient did participate in occupational therapy are oxygen saturation did drop, will continue present management will continue to monitor. Review of Systems Review of Systems: All systems reviewed & are unremarkable except as noted in HPI and below Exam Narrative: elderly frail Patient is comfortable, NAD HEENT: eyes are clear and none icteric LUNGS: normal respiratory effort ABD: not distended Lower extremities: no edema SKIN: nonjaundiced Neuro: grossly intact normal speech. Objective Data Vital Signs Vital Signs: Vital Signs - 24 hr 05/10/21 16:00 05/10/21 20:00 05/10/21 20:43 Temperature 99.1 F 99.1 F Pulse Rate 69 63 72 Respiratory Rate 22 H 18 Blood Pressure 123/53 L 120/43 L Pulse Oximetry 91 95 94 05/11/21 00:00 05/11/21 04:00 05/11/21 08:00 Temperature 97.4 F L 96.3 F L 97.9 F Pulse Rate 56 L 50 L 54 L Respiratory Rate 18 18 16 Blood Pressure 117/48 L 111/50 L 118/42 L Pulse Oximetry 96 97 100 05/11/21 08:42 05/11/21 08:45 05/11/21 12:00 Temperature 98 F Pulse Rate 54 L 54 L 58 L Respiratory Rate 16 Blood Pressure 118/61 107/41 L Pulse Oximetry 98 Intake/Output Intake/Output: Intake & Output 05/08/21 05/09/21 05/10/21 05/11/21 23:59 23:59 23:59 23:59 Intake Total 990 2080 2000 1020 Output Total 1500 3540 1025 550 Balance -510 -1460 975 470 Meds/Results Medications: Active Medications Generic Name Dose Route Start Last Admin Trade Name Freq PRN Reason Stop Dose Admin Acetaminophen 650 mg 04/26/21 14:20 05/09/21 10:04 Acetaminophen 325 Mg Tablet PO 650 mg Q6H PRN Administration Mild Pain (1-3) or Fever Albuterol 2 puff 05/08/21 14:00 05/11/21 13:16 Albuterol Sulfate (*Sp) Aerosol 1 Puff INHALATION 2 puff Q6HRT MANUEL Administration Amlodipine Besylate 10 mg 04/24/21 09:00 05/11/21 08:46 Amlodipine Besylate 5 Mg Tablet PO 10 mg DAILY MANUEL Administration Baricitinib 2 mg 04/25/21 14:00 05/11/21 08:45 Baricitinib 2 Mg Tablet BY MOUTH 05/13/21 09:01 2 mg DAILY MANUEL Administration Bisacodyl 5 mg 04/27/21 12:52 Bisacodyl 5 Mg Tablet Ec PO QAM PRN Constipation Citalopram Hydrobromide 20 mg 04/24/21 09:00 05/11/21 08:46 Citalopram Hydrobromide 20 Mg Tablet PO 20 mg DAILY MANUEL Administration Dextrose 12.5 gm 04/24/21 08:53 05/05/21 08:43 Dextrose 50% 25 Gm/50 Ml Syringe IV PUSH 12.5 gm PRN PRN Administration Hypoglycemia Protocol Enoxaparin Sodium 40 mg 04/24/21 09:00 05/11/21 08:50 Enoxaparin 40 Mg/0.4 Ml Syringe SUB-Q 40 mg DAILY MANUEL Administration
[2021-05-11 15:56] LABS: Glucose Point of Care 133 mg/dl (65-105)
--- NOTE | 2021-05-11 16:16 | PCPTNOTE ---
On 05/11/21, the student, Lele RALPH, provided care and completed [facility] documentation on this patient. I have reviewed the student's documentation and agree with the findings.
[2021-05-11 21:26] LABS: Glucose Point of Care 136 mg/dl (65-105)
[2021-05-12] VITALS (15 sets, daily range): BP systolic 117–134; BP diastolic 43–72; PULSE 55–68; RESP 16–18; TEMP 36.4–37.1; O2SAT 90–97
[2021-05-12] MEDS: ALBUTEROL SULFATE (*SP) AEROSOL 1 PUFF 2 PUFF INHALATION ×4 (04:26→20:57)
[2021-05-12] MEDS: LEVOTHYROXINE SODIUM INJ 100 MCG/5 ML VIAL 56 MCG IV PUSH (06:06)
[2021-05-12 06:21] LABS: Basophils Percent Auto 0.2 % (0.2-1.2); Eosinophils Absolute Auto 0.1 K/mm3 (0-0.3); Eosinophils Percent Auto 1.7 % (0-4.4); Hemoglobin 8.5 g/dL (12.0-15.0); Immature Granulocyte Absolute 0.06 K/mm3 (0.00-0.031); Immature Granulocyte Percent A 1.1 % (0-0.5); Lymphocytes Absolute Auto 0.73 K/mm3 (0.9-3.2); Lymphocytes Percent Auto 13.6 % (18.3-44.2); Mean Corpuscular HGB Conc 31.5 g/dl (32-36); Mean Corpuscular Hemoglobin 30.2 pg (26-34); Mean Corpuscular Volume 96.1 fl (80-100); Monocytes Absolute Auto 0.6 K/mm3 (0.1-0.6); Monocytes Percent Auto 10.4 % (2.6-8.5); Neutrophils Absolute Auto 3.9 K/mm3 (1.3-6.7); Platelet Count Result 110 k/mm3 (150-375); Red Blood Count 2.81 M/mm3 (4.2-5.4); Red Cell Distribution Width 14.8 % (11.5-14.5); White Blood Count 5.4 K/mm3 (4.5-10.0)
[2021-05-12 07:42] LABS: Alanine Aminotransferase 27 U/L (4-35); Estimated CRCL calculation 40 ml/min; Estimated Glomerular Filt Rate 53
[2021-05-12 07:45] LABS: Glucose Point of Care 138 mg/dl (65-105)
[2021-05-12] MEDS: ENOXAPARIN 40 MG/0.4 ML SYRINGE SUB-Q (08:34)
[2021-05-12] MEDS: levETIRAcetam 500 MG TABLET PO ×2 (08:35→22:12)
[2021-05-12] MEDS: amLODIPine BESYLATE 5 MG TABLET 10 MG PO (08:35)
[2021-05-12] MEDS: metFORMIN HCL 500 MG TABLET PO ×2 (08:35→19:28)
[2021-05-12] MEDS: NEBIVOLOL HCL 5 MG TABLET 40 MG PO (08:35)
[2021-05-12] MEDS: BARICITINIB 2 MG TABLET BY MOUTH (08:35)
[2021-05-12] MEDS: INSULIN GLARGINE (*BKC) 100 UNITS/ML 20 UNITS SUB-Q (09:24)
--- NOTE | 2021-05-12 10:51 | PCNFU ---
Nutrition Follow-Up Complete: Inadequate oral intake related to COVID, altered mental status as evidenced by intake records. Goal: Patient to meet estimated nutritional needs. Patient is progressing towards goal. We will continue current goal. Pt current nutrition is Regular/Soft and Bite Sized, Level 6 diet. Last recorded weight is 75.5 kg, up from 74.2 kg on admit. Bowel Motility:+BM reported 05/11 Labs Reviewed:GAlb 2.9,Hct 27.0,Hgb 8.5, POC glucose 138. Meds Noted:Lovenox, Glucophage, Bystolic, Synthroid. Additional Notes: Patient seen today for nutrition follow up/consult. Diet order has been changed from a Diabetic diet to a regular diet. Patient had Glu 47 yesterday. Patient eating well-75-100% of meals. Diet supplements of Glucerna shakes are being consumed providing an additional 220 kcals and 10 gms protein. Blood sugars today good. Patient had no diet questions or concerns. Monitoring: Follow up every 5 days.
[2021-05-12 11:01] LABS: Glucose Point of Care 219 mg/dl (65-105)
[2021-05-12] MEDS: INSULIN ASPART (*BKC) 100 UNITS/ML SUB-Q ×2 (12:22→19:22)
[2021-05-12] MEDS: CITALOPRAM HYDROBROMIDE 20 MG TABLET PO (12:22)
[2021-05-12 16:11] LABS: Glucose Point of Care 227 mg/dl (65-105)
--- NOTE | 2021-05-12 16:45 | PM.IMPN ---
Progress Note: A&P Assessment and Plan (1) Pneumonia due to COVID-19 virus: Code(s): U07.1 - COVID-19; J12.82 - Pneumonia due to coronavirus disease 2019 Status: Acute Assessment and Plan: Continue decadron and lovenox Remdesivir completed 10 days on 05/03/21 Inflammatory markers CRP of 3.4 05/03/21 continue to wean oxygen D.Dimer is trending down at 9.64 (05/03/21) CTA NO PE, worsening Covid PNA (04/29/21) baricitinib and has been started 04/25/21, placed on hold 05/01/21, restarted 05/04/21, baricitinb until 05/13 plasma [04/24/21] Abdelrahman and IS therapy Albuterol nebs Lasix 40mg IV once repeated Pt has been medically stabilized with the above treatments hopeful discharge tomorrow after physical therapy here. Pt is still weak needs more PT. Subjective Date/time seen: 05/12/21 16:46 Interval history: 80-year-old female with past medical history significant for hypertension, breast cancer, I have deficiency anemia, type 2 diabetes mellitus, degenerative joint disease. Patient was brought to the emergency room via EMS due to shortness of breath generalized weakness fatigue she was found to be saturating on room air at 74% was placed on oxygen and brought to our emergency room here patient was placed on 6 L upon arrival. pt is found to be covid positive pt is currently down to 4 liters of oxygen and is stable. pt can be discharged back tomorrow after PT here. Medically better. Review of Systems Review of Systems: All systems reviewed & are unremarkable except as noted in HPI and below Exam Narrative: Elderly frail on 4 liters of oxygen responding well to questions pleasant Patient is comfortable on oxygen HEENT: eyes are clear and none icteric LUNGS: normal respiratory effort ABDO: not distended Lower extremities: no edema SKIN: nonjaundiced Neuro: grossly intact normal speech. Objective Data Vital Signs Vital Signs: Vital Signs - 24 hr 05/11/21 20:00 05/11/21 22:00 05/12/21 00:00 Temperature 36.7 C Pulse Rate 61 58 L 55 L Respiratory Rate 18 Blood Pressure 120/45 L Pulse Oximetry 95 05/12/21 04:00 05/12/21 06:00 05/12/21 07:54 Temperature 36.8 C Pulse Rate 60 63 63 Respiratory Rate 18 18 Blood Pressure 117/48 L Pulse Oximetry 97 92 05/12/21 08:00 05/12/21 08:35 05/12/21 08:40 Temperature Pulse Rate 56 L 56 L 56 L Respiratory Rate Blood Pressure 134/72 Pulse Oximetry 05/12/21 08:53 05/12/21 12:00 05/12/21 12:04 Temperature Pulse Rate 68 Respiratory Rate Blood Pressure Pulse Oximetry 92 90 05/12/21 14:00 05/12/21 14:17 05/12/21 16:00 Temperature 36.4 C Pulse Rate 56 L 59 L Respiratory Rate 16 Blood Pressure 120/56 L Pulse Oximetry 95 92 Intake/Output Intake/Output: Intake & Output 05/09/21 05/10/21 05/11/21 05/12/21 23:59 23:59 23:59 23:59 Intake Total 2080 1999 1510 1360 Output Total 3540 1025 2050 1100 Balance -1460 975 -540 260 Meds/Results Medications: Active Medications Generic Name Dose Route Start Last Admin Trade Name Freq PRN Reason Stop Dose Admin Acetaminophen 650 mg 04/26/21 14:20 05/09/21 10:04 Acetaminophen 325 Mg Tablet PO 650 mg Q6H PRN Administration Mild Pain (1-3) or Fever Albuterol 2 puff 05/08/21 14:00 05/12/21 14:14 Albuterol Sulfate (*Sp) Aerosol 1 Puff INHALATION 2 puff Q6HRT MANUEL Administration Amlodipine Besylate 10 mg 04/24/21 09:00 05/12/21 08:35 Amlodipine Besylate 5 Mg Tablet PO 10 mg DAILY MANUEL Administration Baricitinib 2 mg 04/25/21 14:00 05/12/21 08:35 Baricitinib 2 Mg Tablet BY MOUTH 05/13/21 09:01 2 mg DAILY MNAUEL Administration Bisacodyl 5 mg 04/27/21 12:52 Bisacodyl 5 Mg Tablet Ec PO QAM PRN Constipation Citalopram Hydrobromide 20 mg 04/24/21 09:00 05/12/21 12:22 Citalopram Hydrobromide 20 Mg Tablet PO 20 mg DAILY MANUEL Administration Dextrose 12.5 gm 04/24/21 08:53
[2021-05-12 19:34] LABS: Glucose Point of Care 187 mg/dl (65-105)
[2021-05-12 23:04] LABS: Glucose Point of Care 184 mg/dl (65-105)
[2021-05-13] VITALS (10 sets, daily range): BP systolic 124–132; BP diastolic 49–55; PULSE 58–72; RESP 17–20; TEMP 36.6–36.9; O2SAT 85–96
[2021-05-13] MEDS: ALBUTEROL SULFATE (*SP) AEROSOL 1 PUFF 2 PUFF INHALATION ×4 (01:46→20:26)
[2021-05-13] MEDS: LEVOTHYROXINE SODIUM INJ 100 MCG/5 ML VIAL 56 MCG IV PUSH (05:45)
[2021-05-13 06:47] LABS: Basophils Percent Auto 0.4 % (0.2-1.2); Eosinophils Absolute Auto 0.1 K/mm3 (0-0.3); Eosinophils Percent Auto 2.1 % (0-4.4); Hematocrit 27.7 % (37.0-47.0); Hemoglobin 8.7 g/dL (12.0-15.0); Immature Granulocyte Absolute 0.09 K/mm3 (0.00-0.031); Immature Granulocyte Percent A 1.7 % (0-0.5); Lymphocytes Absolute Auto 0.77 K/mm3 (0.9-3.2); Lymphocytes Percent Auto 14.6 % (18.3-44.2); Mean Corpuscular HGB Conc 31.4 g/dl (32-36); Mean Corpuscular Hemoglobin 30.4 pg (26-34); Mean Corpuscular Volume 96.9 fl (80-100); Mean Platelet Volume 11.1 fl (7.4-10.4); Monocytes Absolute Auto 0.6 K/mm3 (0.1-0.6); Monocytes Percent Auto 11.3 % (2.6-8.5); Neutrophils Absolute Auto 3.7 K/mm3 (1.3-6.7); Neutrophils Percent Auto 69.9 % (45.5-73.1); Platelet Count Result 113 k/mm3 (150-375); Red Blood Count 2.86 M/mm3 (4.2-5.4); Red Cell Distribution Width 14.9 % (11.5-14.5); White Blood Count 5.3 K/mm3 (4.5-10.0)
[2021-05-13] MEDS: NEBIVOLOL HCL 5 MG TABLET 40 MG PO (08:47)
[2021-05-13] MEDS: CITALOPRAM HYDROBROMIDE 20 MG TABLET PO (08:49)
[2021-05-13] MEDS: BARICITINIB 2 MG TABLET BY MOUTH (08:49)
[2021-05-13] MEDS: metFORMIN HCL 500 MG TABLET PO ×2 (08:49→17:28)
[2021-05-13] MEDS: levETIRAcetam 500 MG TABLET PO ×2 (08:49→22:29)
[2021-05-13] MEDS: amLODIPine BESYLATE 5 MG TABLET 10 MG PO (08:49)
[2021-05-13] MEDS: polyethylene glycoL 3350 17 GM POWD.PACK PO (08:50)
[2021-05-13 09:28] LABS: Glucose Point of Care 88 mg/dl (65-105)
[2021-05-13] MEDS: INSULIN GLARGINE (*BKC) 100 UNITS/ML 20 UNITS SUB-Q (10:39)
[2021-05-13 14:26] LABS: Glucose Point of Care 138 mg/dl (65-105)
--- NOTE | 2021-05-13 15:40 | PCRCNOTE ---
HOME O2 EVAL ATTEMPTED, UNABLE TO COMPLETE. PT'S SAO2 DROPPED TO 85% ON 6L SITTING ON SIDE OF THE BED. CROSSING TENDER NURSE JACLYN NOTIFIED.
--- NOTE | 2021-05-13 16:58 | PM.IMPN ---
Progress Note: A&P Assessment and Plan (1) Pneumonia due to COVID-19 virus: Code(s): U07.1 - COVID-19; J12.82 - Pneumonia due to coronavirus disease 2019 Status: Acute Assessment and Plan: Continue decadron and lovenox Remdesivir completed 10 days on 05/03/21 Inflammatory markers CRP of 3.4 05/03/21 continue to wean oxygen D.Dimer is trending down at 9.64 (05/03/21) CTA NO PE, worsening Covid PNA (04/29/21) baricitinib and has been started 04/25/21, placed on hold 05/01/21, restarted 05/04/21, baricitinb until 05/13 plasma [04/24/21] Abdelrahman and IS therapy Albuterol nebs Lasix 40mg IV once repeated Pt has been medically stabilized with the above treatments hopeful discharge tomorrow after physical therapy here. Pt is still weak needs more PT. Additional Plan wean o2 as tolerated baricitinb until 05/1305/13/2021 Patient has completed baricitinb Patient in agreement to go to SNF now Continue to wean oxygen continue current care Consult healthcare project manager for DC planning Subjective Date/time seen: 05/13/21 20:58 patient doing very well recovering from coronavirus. She now [facility] Order placed for healthcare project manager consult Exam Narrative: Elderly frail on 4 liters of oxygen responding well to questions pleasant Patient is comfortable on oxygen HEENT: eyes are clear and none icteric , extraocular movements intact LUNGS: normal respiratory effort, no use of accessory muscles ABD: not distended Lower extremities: no edema SKIN: nonjaundiced Neuro: grossly intact normal speech. Objective Data Vital Signs Vital Signs: Vital Signs - 24 hr 05/12/21 21:57 05/13/21 01:47 05/13/21 05:36 Temperature 98.7 F 98.5 F Pulse Rate 64 62 58 L Respiratory Rate 18 17 Blood Pressure 125/43 L 124/51 L Pulse Oximetry 93 93 05/13/21 08:45 05/13/21 08:47 05/13/21 09:08 Temperature Pulse Rate 72 Respiratory Rate Blood Pressure Pulse Oximetry 93 92 05/13/21 14:00 05/13/21 15:06 05/13/21 20:20 Temperature 98.2 F Pulse Rate 66 Respiratory Rate 18 Blood Pressure 127/55 L Pulse Oximetry 91 91 85 L Intake/Output Intake/Output: Intake & Output 05/10/21 05/11/21 05/12/21 05/13/21 23:59 23:59 23:59 23:59 Intake Total 1999 1510 2160 1480 Output Total 1025 2050 2200 2100 Balance 975 -540 -40 -620 Meds/Results Medications: Active Medications Generic Name Dose Route Start Last Admin Trade Name Freq PRN Reason Stop Dose Admin Acetaminophen 650 mg 04/26/21 14:20 05/09/21 10:04 Acetaminophen 325 Mg Tablet PO 650 mg Q6H PRN Administration Mild Pain (1-3) or Fever Albuterol 2 puff 05/08/21 14:00 05/13/21 20:26 Albuterol Sulfate (*Sp) Aerosol 1 Puff INHALATION 2 puff Q6HRT MANUEL Administration Amlodipine Besylate 10 mg 04/24/21 09:00 05/13/21 08:49 Amlodipine Besylate 5 Mg Tablet PO 10 mg DAILY MANUEL Administration Bisacodyl 5 mg 04/27/21 12:52 Bisacodyl 5 Mg Tablet Ec PO QAM PRN Constipation Citalopram Hydrobromide 20 mg 04/24/21 09:00 05/13/21 08:49 Citalopram Hydrobromide 20 Mg Tablet PO 20 mg DAILY MANUEL Administration Dextrose 12.5 gm 04/24/21 08:53 05/05/21 08:43 Dextrose 50% 25 Gm/50 Ml Syringe IV PUSH 12.5 gm PRN PRN Administration Hypoglycemia Protocol Enoxaparin Sodium 40 mg 04/24/21 09:00 05/12/21 08:34 Enoxaparin 40 Mg/0.4 Ml Syringe SUB-Q 40 mg DAILY MANUEL Administration Glucagon 1 mg 04/24/21 08:53 Glucagon For Inj 1 Mg Vial IM PRN PRN Hypoglycemia Protocol Glucose 15 gm 04/24/21 08:53 05/11/21 06:49 Glucose Oral Gel 15 Gm Of Glucse In 37.5 Gm Tube PO 15 gm PRN PRN Administration Hypoglycemia Protocol Dextrose 1,000 mls @ 100 mls/hr 04/24/21 08:53 Dextrose 5% 1,000 Ml IVPB PRN PRN Hypoglycemia Protocol Insulin Aspart 2 - 5 units 05/02/21 17:00
[2021-05-13 18:04] LABS: Glucose Point of Care 169 mg/dl (65-105)
[2021-05-13 21:45] LABS: Glucose Point of Care 173 mg/dl (65-105)
[2021-05-14] VITALS (10 sets, daily range): BP systolic 122–135; BP diastolic 48–66; PULSE 57–73; RESP 16–20; TEMP 36.7–36.8; O2SAT 91–97
[2021-05-14] MEDS: ALBUTEROL SULFATE (*SP) AEROSOL 1 PUFF 2 PUFF INHALATION ×4 (01:37→21:19)
[2021-05-14] MEDS: LEVOTHYROXINE SODIUM INJ 100 MCG/5 ML VIAL 56 MCG IV PUSH (05:54)
[2021-05-14 06:04] LABS: Glucose Point of Care 70 mg/dl (65-105)
[2021-05-14 08:36] LABS: Glucose Point of Care 77 mg/dl (65-105)
[2021-05-14 08:36] LABS: Glucose Point of Care 66 mg/dl (65-105)
[2021-05-14] MEDS: amLODIPine BESYLATE 5 MG TABLET 10 MG PO (08:41)
[2021-05-14] MEDS: metFORMIN HCL 500 MG TABLET PO ×2 (08:41→18:25)
[2021-05-14] MEDS: ENOXAPARIN 40 MG/0.4 ML SYRINGE SUB-Q (08:41)
[2021-05-14] MEDS: levETIRAcetam 500 MG TABLET PO ×2 (08:42→19:49)
[2021-05-14] MEDS: NEBIVOLOL HCL 5 MG TABLET 40 MG PO (08:44)
[2021-05-14] MEDS: CITALOPRAM HYDROBROMIDE 20 MG TABLET PO (08:44)
[2021-05-14] MEDS: polyethylene glycoL 3350 17 GM POWD.PACK PO (08:44)
[2021-05-14] MEDS: INSULIN GLARGINE (*BKC) 100 UNITS/ML 20 UNITS SUB-Q (10:29)
[2021-05-14 11:53] LABS: Glucose Point of Care 109 mg/dl (65-105)
--- NOTE | 2021-05-14 13:15 | PM.IMPN ---
Progress Note: A&P Assessment and Plan (1) Pneumonia due to COVID-19 virus: Code(s): U07.1 - COVID-19; J12.82 - Pneumonia due to coronavirus disease 2019 Status: Acute Assessment and Plan: Continue decadron and lovenox Remdesivir completed 10 days on 05/03/21 Inflammatory markers CRP of 3.4 05/03/21 continue to wean oxygen D.Dimer is trending down at 9.64 (05/03/21) CTA NO PE, worsening Covid PNA (04/29/21) baricitinib and has been started 04/25/21, placed on hold 05/01/21, restarted 05/04/21, baricitinb until 05/13 plasma [04/24/21] Abdelrahman and IS therapy Albuterol nebs Lasix 40mg IV once repeated Pt has been medically stabilized with the above treatments hopeful discharge tomorrow after physical therapy here. Pt is still weak needs more PT. (2) Acute metabolic encephalopathy: Code(s): G93.41 - Metabolic encephalopathy Status: Acute Assessment and Plan: resolved (3) Hypercalcemia: Code(s): E83.52 - Hypercalcemia Status: Acute (4) Hyponatremia: Code(s): E87.1 - Hypo-osmolality and hyponatremia Status: Acute (5) ALCIRA (acute kidney injury): Code(s): N17.9 - Acute kidney failure, unspecified Status: Acute (6) Hypertension: Code(s): I10 - Essential (primary) hypertension Status: Acute (7) Type 2 diabetes mellitus: Code(s): E11.9 - Type 2 diabetes mellitus without complications Status: Acute (8) Acute respiratory failure with hypoxia: Code(s): J96.01 - Acute respiratory failure with hypoxia Status: Acute (9) Emphysema/COPD: Code(s): J43.9 - Emphysema, unspecified Status: Acute Additional Plan wean o2 as tolerated baricitinb until 05/1305/13/2021 Patient has completed baricitinb Patient in agreement to go to SNF now Continue to wean oxygen continue current care Consult neonatal intensive care unit nurse for DC planning 05/14/21 pt doing very well BG at goal does agree she needs SNF prior to returning to home would like [facility] where her [id number] works CM updated on pts first choice remains stable on 3L NC cont current care Subjective Date/time seen: 05/14/21 13:15 pt doing ok would like to go to [facility] where her [id number] works. Pt advised that she has done very well. She has survived COVID and is now ready to start her recovery/healing process. Pt very pleased. O2 discussed w RN pt is on NC at 3L and saturating 94-96% Exam Narrative: GEN: NAD, AAOx3, cooperative HEENT: NCAT, MMM, EOMI Neck: no JVD Heart: S1S2 RRR Lungs: b/l crackles Abd: soft, NT Ext: moves all, no cyanosis, no clubbing, no edema Neuro: CN intact no focal motor deficits appreciated Psych: mood and affect congruent Objective Data Vital Signs Vital Signs: Vital Signs - 24 hr 05/13/21 14:00 05/13/21 15:06 05/13/21 20:00 Temperature 98.2 F Pulse Rate 66 Respiratory Rate 18 Blood Pressure 127/55 L Pulse Oximetry 91 91 94 05/13/21 20:20 05/13/21 22:00 05/14/21 06:00 Temperature 97.8 F 98.2 F Pulse Rate 63 59 L Respiratory Rate 20 20 Blood Pressure 132/49 L 133/66 Pulse Oximetry 85 L 96 97 05/14/21 08:27 05/14/21 08:40 05/14/21 08:44 Temperature 98.2 F Pulse Rate 62 65 Respiratory Rate 16 Blood Pressure 135/55 L Pulse Oximetry 97 97 05/14/21 08:50 Temperature Pulse Rate Respiratory Rate Blood Pressure Pulse Oximetry 92 Intake/Output Intake/Output: Intake & Output 05/11/21 05/12/21 05/13/21 05/14/21 23:59 23:59 23:59 23:59 Intake Total 1510 2160 1480 1330 Output Total 2050 2200 2100 1800 Balance -540 -40 -620 -470 Meds/Results Medications: Active Medications Generic Name Dose Route Start Last Admin Trade Name Freq PRN Reason Stop Dose Admin Acetaminophen 650 mg 04/26/21 14:20 05/09/21 10:04 Acetaminophen 325 Mg Tablet PO 650 mg Q6H PRN Administration Mild Pain (1-3) or Fever Albuterol 2
--- NOTE | 2021-05-14 16:24 | PM.DS ---
DS: Admitting Diagnosis Discharge Date 05/14/21 Admitting Diagnosis 1) Pneumonia due to COVID-19 virus: Code(s): U07.1 - COVID-19; J12.82 - Pneumonia due to coronavirus disease 2019 Status: Acute Assessment and Plan: Patient has been started on remdesivir and Decadron Added Zithromax and Rocephin for bacterial coverage Await cultures Supportive care (2) Acute respiratory failure with hypoxia: Code(s): J96.01 - Acute respiratory failure with hypoxia Status: Acute Assessment and Plan: Supplemental oxygen as needed. (3) Emphysema/COPD: Code(s): J43.9 - Emphysema, unspecified Status: Acute Assessment and Plan: Breathing treatments On Decadron (4) Type 2 diabetes mellitus: Code(s): E11.9 - Type 2 diabetes mellitus without complications Status: Acute Assessment and Plan: Insulin sliding scale as needed Hold metformin Continue insulin glargine Holding Trulicity Accu-Cheks AC and HS (5) Hypertension: Code(s): I10 - Essential (primary) hypertension Status: Acute Assessment and Plan: Continue amlodipine (6) ALCIRA (acute kidney injury): Code(s): N17.9 - Acute kidney failure, unspecified Status: Acute Assessment and Plan: Unknown baseline Holding lisinopril Holding Lasix Holding chlorthalidone Continue to monitor Renal ultrasound in a.m. DS: Discharge Diagnosis Discharge Diagnosis (1) Acute metabolic encephalopathy: Code(s): G93.41 - Metabolic encephalopathy Status: Acute (2) Hypercalcemia: Code(s): E83.52 - Hypercalcemia Status: Acute (3) Hyponatremia: Code(s): E87.1 - Hypo-osmolality and hyponatremia Status: Acute (4) ALCIRA (acute kidney injury): Code(s): N17.9 - Acute kidney failure, unspecified Status: Acute (5) Hypertension: Code(s): I10 - Essential (primary) hypertension Status: Acute (6) Type 2 diabetes mellitus: Code(s): E11.9 - Type 2 diabetes mellitus without complications Status: Acute (7) Acute respiratory failure with hypoxia: Code(s): J96.01 - Acute respiratory failure with hypoxia Status: Acute (8) Emphysema/COPD: Code(s): J43.9 - Emphysema, unspecified Status: Acute (9) Pneumonia due to COVID-19 virus: Code(s): U07.1 - COVID-19; J12.82 - Pneumonia due to coronavirus disease 2019 Status: Acute DS: Summary Hospital Course Reason for hospitalization: SOB Hospital Course: 80-year-old female presents emergency room with shortness of breath subsequently found to be positive for COVID-19 and in acute hypoxemic respiratory failure requiring 6L NC. Patient was treated with the Remdesivir, Decadron, Zithromax and Rocephin for bacterial coverage. During hospitalization pt had a neurological event and Neurology was consulted. Keppra was initiated, and hospitalization continued without further seizure episode. She had a protracted clinical course requiring prolonged therapy with increasing oxygen requirements, steroids, and Remdesivir. Fortunately, her oxygen requirements did gradually improve and at the time of discharge to half-way facility for ongoing care she was stable on 3 L nasal cannula. Status at Discharge Overall status at discharge: patient is back to baseline Time Spent with Patient Time attestation: Total time spent providing and/or coordinating discharge services: Time spent: Greater than 30 minutes Exam Narrative: GEN: NAD, AAOx3, cooperative HEENT: NCAT, MMM, EOMI Neck: no JVD Heart: S1S2 RRR Lungs: bilateral fine crackles Abd: soft, NT, ND, bowel sounds normoactive Ext: moves all, no cyanosis, no clubbing, no edema Neuro: CN intact, no focal neurological deficits appreciated Psych: mood and affect congruent DS: Data Data Completed and Pending Labs on day of discharge: Labs from last 24 hours 05/14/21 05/14/21 05/14/21 11:50 08:29 08:09 POC Capill
[2021-05-14 17:05] LABS: Glucose Point of Care 214 mg/dl (65-105)
[2021-05-14] MEDS: INSULIN ASPART (*BKC) 100 UNITS/ML SUB-Q (18:24)
--- NOTE | 2021-05-14 20:00 | PC.NURSE ---
Pt up to the bathroom and unable to void, bladder scan shows greater than 610. Cindy RUIZ notified and new orders to insert castillo and continue with discharge, updated Nurse [facility] at [facility] and she states that they cannot accept her as an admission after 9pm. Castillo inserted and Son Timothy is called to transport patient. Made son aware that she needs to be at the facility by 9pm, son then says he will not put his life or his mothers life in danger by rushing. Cindy RUIZ aware that patient will remain here tonight, [facility] will accept in the am.
[2021-05-14 22:03] LABS: Glucose Point of Care 221 mg/dl (65-105)
[2021-05-15] VITALS: O2SAT 92
[2021-05-15] MEDS: ALBUTEROL SULFATE (*SP) AEROSOL 1 PUFF 2 PUFF INHALATION ×2 (03:37→08:37)
[2021-05-15 05:41] VITALS: BP 123/50; PULSE 62; RESP 18; TEMP 36.9; O2SAT 92
[2021-05-15] MEDS: LEVOTHYROXINE SODIUM 112 MCG TABLET PO (06:58)
--- NOTE | 2021-05-15 07:34 | PM.DS ---
DS: Admitting Diagnosis Discharge Date 05/15/21 Admitting Diagnosis 1) Pneumonia due to COVID-19 virus: Code(s): U07.1 - COVID-19; J12.82 - Pneumonia due to coronavirus disease 2019 Status: Acute Assessment and Plan: Patient has been started on remdesivir and Decadron Added Zithromax and Rocephin for bacterial coverage Await cultures Supportive care (2) Acute respiratory failure with hypoxia: Code(s): J96.01 - Acute respiratory failure with hypoxia Status: Acute Assessment and Plan: Supplemental oxygen as needed. (3) Emphysema/COPD: Code(s): J43.9 - Emphysema, unspecified Status: Acute Assessment and Plan: Breathing treatments On Decadron (4) Type 2 diabetes mellitus: Code(s): E11.9 - Type 2 diabetes mellitus without complications Status: Acute Assessment and Plan: Insulin sliding scale as needed Hold metformin Continue insulin glargine Holding Trulicity Accu-Cheks AC and HS (5) Hypertension: Code(s): I10 - Essential (primary) hypertension Status: Acute Assessment and Plan: Continue amlodipine (6) ALCIRA (acute kidney injury): Code(s): N17.9 - Acute kidney failure, unspecified Status: Acute Assessment and Plan: Unknown baseline Holding lisinopril Holding Lasix Holding chlorthalidone Continue to monitor Renal ultrasound in a.m. DS: Discharge Diagnosis Discharge Diagnosis (1) Acute metabolic encephalopathy: Code(s): G93.41 - Metabolic encephalopathy Status: Acute (2) Hypercalcemia: Code(s): E83.52 - Hypercalcemia Status: Acute (3) Hyponatremia: Code(s): E87.1 - Hypo-osmolality and hyponatremia Status: Acute (4) ALCIRA (acute kidney injury): Code(s): N17.9 - Acute kidney failure, unspecified Status: Acute (5) Hypertension: Code(s): I10 - Essential (primary) hypertension Status: Acute (6) Type 2 diabetes mellitus: Code(s): E11.9 - Type 2 diabetes mellitus without complications Status: Acute (7) Acute respiratory failure with hypoxia: Code(s): J96.01 - Acute respiratory failure with hypoxia Status: Acute (8) Pneumonia due to COVID-19 virus: Code(s): U07.1 - COVID-19; J12.82 - Pneumonia due to coronavirus disease 2019 Status: Acute (9) Emphysema/COPD: Code(s): J43.9 - Emphysema, unspecified Status: Acute DS: Summary Hospital Course Reason for hospitalization: shortness of breath Hospital Course: Hospital Course: 80-year-old female presents emergency room with shortness of breath subsequently found to be positive for COVID-19 and in acute hypoxemic respiratory failure requiring 6L NC. Patient was treated with the Remdesivir, Decadron, Zithromax and Rocephin for bacterial coverage. During hospitalization pt had a neurological event and Neurology was consulted. Keppra was initiated, and hospitalization continued without further seizure episode. She had a protracted clinical course requiring prolonged therapy with increasing oxygen requirements, steroids, and Remdesivir. Fortunately, her oxygen requirements did gradually improve and [facility] she was stable on 3 L nasal cannula. Discharge held on 05/14/21 for urinary retention when castillo catheter discontinued. Suspected to be 2/2 length of stay and prolonged use of urinary catheter. Pt discharged w castillo catheter with indications to have bladder retraining performed prior to removal and follow up w Urologist. Status at Discharge Functional status at discharge: independent ambulation Overall status at discharge: patient is not back to baseline Time Spent with Patient Time attestation: Total time spent providing and/or coordinating discharge services: Time spent: Greater than 30 minutes Exam Narrative: GEN: NAD, AAOx3, cooperative HEENT: NCAT, MMM, EOMI Neck: no JVD Abd: soft, NT, ND, chintan
[2021-05-15 08:00] VITALS: O2SAT 96
[2021-05-15 08:11] LABS: Glucose Point of Care 80 mg/dl (65-105)
[2021-05-15] MEDS: metFORMIN HCL 500 MG TABLET PO (08:18)
[2021-05-15] MEDS: amLODIPine BESYLATE 5 MG TABLET 10 MG PO (08:18)
[2021-05-15 08:19] VITALS: PULSE 65
[2021-05-15] MEDS: ENOXAPARIN 40 MG/0.4 ML SYRINGE SUB-Q (08:19)
[2021-05-15] MEDS: NEBIVOLOL HCL 5 MG TABLET 40 MG PO (08:19)
[2021-05-15] MEDS: levETIRAcetam 500 MG TABLET PO (08:20)
[2021-05-15] MEDS: CITALOPRAM HYDROBROMIDE 20 MG TABLET PO (08:20)
[2021-05-15] MEDS: polyethylene glycoL 3350 17 GM POWD.PACK PO (08:21)
[2021-05-15] MEDS: INSULIN GLARGINE (*BKC) 100 UNITS/ML 20 UNITS SUB-Q (08:24)
[2021-05-15 08:43] VITALS: PULSE 65; RESP 20; O2SAT 92
[2021-05-15 10:05] VITALS: O2SAT 93
== END 2021-05-15 10:05 | DRG 177 ==
LOC: ANHED 21:42 → ANHIMU 23:44 → ANH3MEDSUR 05-11 06:59 → ANHIMU 05-18 15:28
PROVIDERS: General Practice; Internal Medicine; Nurse Practitioner; Physician Assistant; Admitting Provider Internal Medicine; Emergency Provider Emergency Medicine; Visit Provider Physician Assistant
DX: U07.1 COVID-19 (principal); J12.82 Pneumonia due to coronavirus disease 2019; J96.01 Acute respiratory failure with hypoxia; G93.41 Metabolic encephalopathy; N17.9 Acute kidney failure, unspecified; E87.1 Hypo-osmolality and hyponatremia; E11.65 Type 2 diabetes mellitus with hyperglycemia; J43.9 Emphysema, unspecified; R56.9 Unspecified convulsions; I10 Essential (primary) hypertension; E86.0 Dehydration; D50.9 Iron deficiency anemia, unspecified; E83.52 Hypercalcemia; R33.9 Retention of urine, unspecified; E03.9 Hypothyroidism, unspecified; M19.90 Unspecified osteoarthritis, unspecified site; Z85.3 Personal history of malignant neoplasm of breast; Z87.891 Personal history of nicotine dependence
CPT/HCPCS: 36415; 36430; 36600; 70450; 71045; 71275; 74177; 80048; 80053; 80076; 81001; 82140; 82375; 82565; 82728; 82805; 82948; 83036; 83050; 83519; 83605; 83615; 83735; 83880; 84100; 84146; 84295; 84439; 84443; 84460; 84480; 84484; 85025; 85027; 85055; 85380; 85610; 85730; 86140; 86900; 86901; 87040; 87426; 93005; 93306; 94640; 94667; 95816; 96365; 96366; 96367; 96375; 97110; 97116; 97163; 97165; 97168; 97530; 97535; 99285; A9270; C9803; G0378; J0456; J0696; J1100; J1650; J1815; J1940; J1953; J2060; J7030; J8540; P9059; Q9967

== ENCOUNTER 2021-06-25 04:25 | Emergency (ER) | payer MEDICARE, OTHER, SELFPAY ==
--- NOTE | ~2021-06-25 | CT_ITS ---
EXAMINATION: CT cervical spine wo con DATE: 06/25/2021 04:57 INDICATION: Head injury TECHNIQUE: Computed tomography (CT) of the cervical spine was performed without intravenous contrast. The dose-length product (DLP) was 401.87 mGy-cm. Automated exposure control and iterative reconstruc tion technique were employed. COMPARISON: None FINDINGS: There is no fracture. The odontoid is intact. There are 2 mm of anterolisthesis of C3 on C4 , 4 mm of anterolisthesis of C4 on C5, and 2 mm of anterolisthesis of C7 on T1. There is severe loss of intervertebral disc space height at C6-7 and moderate loss of disc space height at C5-6 and C7-T1. Small degenerative osteophytes project from the anterior endplates of multiple vertebral bodies. The vertebral body heights are maintained. There is severe multilevel facet and uncovertebral joint oste oarthritis. There are airspace opacities of the visualized lung apices. IMPRESSION: 1. Severe cervical spondylosis without acute findings. Reviewed, dictated and finalized at location B.
--- NOTE | ~2021-06-25 | XR_ITS ---
EXAMINATION: XR hip LT 2V w AP pelvis DATE: 06/25/2021 04:50 INDICATION: Left hip pain post fall TECHNIQUE: Anteroposterior view of the pelvis and anteroposterior and frog-leg lateral views of the l eft hip were obtained. COMPARISON: None. FINDINGS: Normal alignment at the bilateral hips. No fracture. Mild bilateral hip and sacroiliac osteoarthritis . Severe lower lumbar spondylosis. Enthesophytes at the bilateral greater trochanters and ischial tub erosities. IMPRESSION: 1. Degenerative skeletal changes as detailed above. No acute osseous abnormality. Reviewed, dictated and finalized at location A. IMPRESSION: 1. Degenerative skeletal changes as detailed above. No acute osseous abnormalit y.
--- NOTE | ~2021-06-25 | CT_ITS ---
EXAMINATION: CT brain wo con INDICATION: Head injury COMPARISON: 04/29/2021 TECHNIQUE: Standard unenhanced head CT. The dose-length product (DLP) was 681.00 mGy-cm. The mA was a djusted according to patient size. Iterative reconstruction technique was employed. FINDINGS: There is no acute intraparenchymal hemorrhage. No evidence of mass lesion. No evidence of a cute infarction. There is moderate periventricular and subcortical hypodensity probably related to sm all vessel ischemic disease. There is moderate prominence of the sulci and ventricles related to cere bral atrophy. Intracranial calcified cerebral atherosclerosis is noted. There are no extra-axial loc ections. There is no mass effect or midline shift. Changes in the globes are likely from ocular lens surgery. The visualized sinuses and mastoid air cells are well aerated. IMPRESSION: 1. No acute intracranial abnormality. 2. Age related findings. Reviewed, dictated and finalized at location B.
--- NOTE | ~2021-06-25 | CT_ITS ---
EXAMINATION: CT hip LT wo con DATE: 06/25/2021 05:37 INDICATION: Left hip pain post fall TECHNIQUE: High resolution computed tomography (CT) of the left hip was performed without intravenous contrast. Additional sagittal and coronal reconstructions were performed. Automated exposure control and iterative reconstruction technique were employed. The dose-length product was 390.42 mGy-cm. COMPARISON: None FINDINGS: 4 mm anterolisthesis L5 on S1 with partially visualized left-sided L5 pars intra-articular is defect. Severe bilateral facet osteoarthritis and severe height loss with vacuum phenomena at L5-S1. Normal alignment and mild to moderate osteoarthritis at the left hip. No fracture. No left hip joint effusio n. There is asymmetric fatty atrophy involving the posterior muscle belly of the left gluteus minimus with small heterotopic ossicle along its distal tendon and involving the anterior two thirds of the left gluteus medius with cephalad retraction of the myotendinous junction, both findings consistent w ith chronic tears of the corresponding tendons. Small amount of enthesopathic calcification the proxi mal left hamstring tendons. Atherosclerotic calcifications of multiple arteries in the visualized pel vis and proximal left thigh. Mild stranding in the subcutaneous fat overlying the left greater trocha nter likely representing a posttraumatic contusion. No discrete hematoma. IMPRESSION: 1. No acute osseous abnormality. 2. Degenerative skeletal changes including severe lower lumbar spondylosis and mild to moderate left hip osteoarthritis. 3. Consultation findings suggesting chronic partial tears of the left gluteus medius and gluteus mini mus tendons with corresponding fatty muscular atrophy. Reviewed, dictated and finalized at location A. IMPRESSION: 1. No acute osseous abnormality. 2. Degenerative skeletal changes including severe lower lumbar spondylosis and mild to moderate left hip osteoarthritis. 3. Consultation findings suggesting chronic partial tears of the left gluteus m edius and gluteus minimus tendons with corresponding fatty muscular atrophy.
[2021-06-25 04:29] VITALS: BP 133/80; PULSE 71; RESP 17; TEMP 36.4; O2SAT 100
--- NOTE | 2021-06-25 04:36 | ED.FALL ---
HPI - Fall General Chief Complaint: Fall Stated Complaint: fall Time Seen by Provider: 06/25/21 04:34 Source: patient Mode of arrival: EMS Limitations: no limitations History of Present Illness HPI Narrative: 80-year-old female currently in rehab hospital got up to go to the bathroo, she uses a walker and she also has her oxygen 3 L with her. As she was walking back from the bathroom she said she did not pass out, she did not get dizzy, she ran into an oxygen tank sitting in the hallway with her left hip and that put her off balance that she fell. No LOC. Complains of Occipital pain and hematoma, L sided neck pain with movement and L lateral hip Pain. Patient is on blood thinners, arrives alert and oriented x 4, c-collar in place. Hip, neck and head pain worse with movement, improves with rest. Related Data Home Medications Medication Instructions Recorded Confirmed Bystolic 40 mg PO DAILY 04/02/21 04/24/21 amlodipine 10 mg PO DAILY 04/02/21 04/24/21 anastrozole 1 mg PO DAILY 04/02/21 04/24/21 ascorbic acid (vitamin C) 1,000 mg PO BID 04/02/21 04/24/21 aspirin 81 mg PO DAILY 04/02/21 04/24/21 biotin 10,000 mcg PO DAILY 04/02/21 04/24/21 calcium carbonate-vit D3-min 1 tablet PO BID 04/02/21 04/24/21 cinnamon bark [Cinnamon] 500 mg PO DAILY 04/02/21 04/24/21 citalopram 20 mg PO DAILY 04/02/21 04/24/21 coQ10 (ubiquinol) 200 mg PO DAILY 04/02/21 04/24/21 ferrous sulfate 325 mg PO BID 04/02/21 04/24/21 furosemide 20 mg PO DAILY 04/02/21 04/24/21 garlic 5 mg PO DAILY 04/02/21 04/24/21 jnuolexa-eoxb-tszyaj-hyalur ac 2 tablet PO DAILY 04/02/21 04/24/21 icosapent ethyl [Vascepa] 2 g PO BID 04/02/21 04/24/21 levothyroxine 112 mcg PO DAILY 04/02/21 04/24/21 lutein 20 mg PO DAILY 04/02/21 04/24/21 metformin 500 mg PO BID 04/02/21 04/24/21 juytpelieyfw-qjujbqsb-qmuavy 1 tablet PO DAILY 04/02/21 04/24/21 rosuvastatin 20 mg PO DAILY 04/02/21 04/24/21 vitamin B complex [B 1 tablet PO DAILY 04/02/21 04/24/21 Complex-Vitamin B12] Trulicity 3 mg SUBCUT WEEKLY 04/24/21 04/24/21 potassium chloride 10 meq PO DAILY 04/24/21 04/24/21 Allergies Allergy/AdvReac Type Severity Reaction Status Date / Time Penicillins Allergy Unknown Unknown Verified 06/25/21 04:47 Sulfa (Sulfonamide Allergy Unknown Unknown Verified 06/25/21 04:47 Antibiotics) Review of Systems Review of Systems: CONSTITUTIONAL: no fever, no weight loss, no confusion EYES: no vision changes, no eye pain ENT: no rhinorrhea, no sore throat, no difficulty swallowing, left lateral neck pain CARDIOVASCULAR: no chest pain, no leg edema, no palpitations RESPIRATORY: no cough, no shortness of breath, no hemoptysis GASTROINTESTINAL: no abdominal pain, no nausea, no vomiting, no diarrhea GENITOURINARY: no flank pain, no dysuria, no hematuria SKIN: no rash, no jaundice MUSCULOSKELETAL: no back pain, L hip pain NEUROLOGIC: No headache, no dizziness, no focal weakness PSYCHIATRIC: No hallucinations, no suicidal ideation PMFSH Past Medical History Medical History Diabetes mellitus Hypertension Hypothyroid Surgical History Surgical History H/O skin graft Social History Social History Smoking packs per day: 1 Smoking cigarettes per day: 20.0 Smoking status: Former smoker Tobacco type: cigarettes Second hand tobacco smoke exposure: No Smoking end date: 05/06/88 Alcohol intake: never Substance use: never Gender identity (if verbalized by the patient): Female Spiritual care concerns: No Exam Narrative: General: alert, afebrile, answering all questions appropriately Head: normocephalic, occiput hematoma with no bleeding Eyes: EOMI bilaterally, anicteric, no injection ENT: dry mucous membranes, oropharynx patent, no rhinorrhea Neck: trachea midline, c-collar in place Chest: equal chest rise bila
--- NOTE | 2021-06-25 04:46 | PC.NURSE ---
pt to CT and Xray at this time.
[2021-06-25 05:49] VITALS: BP 134/54; PULSE 75; RESP 17; O2SAT 100
[2021-06-25 07:18] VITALS: BP 132/54; PULSE 84; RESP 18; O2SAT 98
== END 2021-06-25 07:15 ==
PROVIDERS: Emergency Provider Emergency Medicine
DX: S00.03XA Contusion of scalp, initial encounter (principal); S70.02XA Contusion of left hip, initial encounter; E11.9 Type 2 diabetes mellitus without complications; I10 Essential (primary) hypertension; E03.9 Hypothyroidism, unspecified; Z87.891 Personal history of nicotine dependence; Z79.01 Long term (current) use of anticoagulants; Z79.84 Long term (current) use of oral hypoglycemic drugs; Z79.4 Long term (current) use of insulin; Z79.82 Long term (current) use of aspirin; W18.09XA Striking against other object with subsequent fall, initial encounter
CPT/HCPCS: 70450; 72125; 73502; 73700; 99284

== ENCOUNTER 2021-06-26 19:38 | Emergency (ER) | payer MEDICARE, OTHER, SELFPAY ==
--- NOTE | ~2021-06-26 | XR_ITS ---
XR shoulder RT min 2V DATE: 06/26/2021 20:44 INDICATION: Fall. Bilateral shoulder pain TECHNIQUE: 4 views COMPARISON: None FINDINGS: Diffuse osteopenia. There is degenerative spurring at the acromioclavicular joint. No fracture or dislocation, periosteal reaction or bone destruction is detected. IMPRESSION: Diffuse osteopenia No fracture or dislocation Degenerative change of the right acromioclavicular joint Diffuse idiopathic skeletal hyperostosis of the thoracic spine Reviewed, dictated and finalized at location A.
--- NOTE | ~2021-06-26 | CT_ITS ---
EXAMINATION: CT cervical spine wo con DATE: 06/26/2021 20:34 INDICATION: Patient fell and landed on face TECHNIQUE: Computed tomography (CT) of the cervical spine was performed without intravenous contrast. Automated exposure control and iterative reconstruction technique were employed. Exam dose: 293.69 mGy-cm total exam DLP. COMPARISON: None FINDINGS: C1 and C2 are normally aligned and the odontoid process is intact. There is minimal anterolisthesis at C3-4. There is a 1.8 mm anterolisthesis at C4-5. There is moderately severe degenerative disc disease at C5-6 and severe degenerative disease at C6-7. There is approximately 1-2 mm anterolisthesis at C7-T1. No fracture or dislocation or locked facet or prevertebral soft tissue swelling is detected. There is ankylosis of the apophyseal joints bilaterally at C2-3. There is severe degenerative change of the apophyseal joints elsewhere throughout the cervical spine. Incidentally noted is left upper lobe infiltrate. IMPRESSION: Extensive cervical spondylosis; no fracture, dislocation or locked facet Reviewed, dictated and finalized at Location A. Reviewed, dictated and finalized at location A.
--- NOTE | ~2021-06-26 | XR_ITS ---
XR shoulder LT min 2V DATE: 06/26/2021 20:44 INDICATION: Fall. Bilateral shoulder pain TECHNIQUE: 4 views COMPARISON: 02/12/2017 left shoulder FINDINGS: There is diffuse osteopenia. There is severe osteoarthritic change at the left glenohumeral joint. There is prominent rotator cuff atrophy. No fracture, dislocation, periosteal reaction or bone destruction is detected. Diffuse idiopathic skeletal hyperostosis of the thoracic spine. IMPRESSION: Diffuse osteopenia Severe glenohumeral osteoarthritis Rotator cuff atrophy Diffuse idiopathic skeletal hyperostosis of the thoracic spine No fracture or dislocation of the left shoulder Reviewed, dictated and finalized at location A.
--- NOTE | ~2021-06-26 | XR_ITS ---
XR chest 1V portable DATE: 06/26/2021 20:44 INDICATION: Fall. Hypertension. TECHNIQUE: AP chest on 06/26/2021 at 2033 hours COMPARISON: 05/03/2021 portable AP chest 04/29/2021 CTA chest 04/28/2021 portable AP chest 04/23/2021 portable AP chest FINDINGS: There are diffuse patchy bilateral pulmonary infiltrates with peripheral and basilar predil ection, increased since 04/28/2021. Differential diagnosis includes aspiration pneumonitis, bilateral p neumonia, possible underlying chronic interstitial changes. No pleural effusion is evident. Heart size is within normal range. Is aortic calcification. Left glenohumeral osteoarthritis and left chronic rotator cuff atrophy. Degenerative change at the ri ght acromioclavicular joint. Diffuse idiopathic skeletal hyperostosis of the thoracic spine. Diffuse osteopenia. IMPRESSION: Extensive bilateral pulmonary infiltrates with peripheral and basilar predilection, incre ased since 04/28/2021 Reviewed, dictated and finalized at location A. IMPRESSION: Extensive bilateral pulmonary infiltrates with peripheral and basil ar predilection, increased since 04/28/2021
--- NOTE | ~2021-06-26 | CT_ITS ---
EXAMINATION: CT brain wo con DATE: 06/26/2021 20:34 INDICATION: Patient fell and landed on face. TECHNIQUE: Computed tomography (CT) of the head was performed without intravenous contrast. The mA wa s adjusted according to patient size. Iterative reconstruction technique was employed. Exam dose: 68 1.00 mGy-cm total exam DLP. COMPARISON: 06/2021 CT brain FINDINGS: No intracranial mass lesion or hemorrhage or cerebrovascular accident. No midline shift or mass effect. Bilateral carotid siphon internal carotid artery calcifications and vertebral artery calcifications a s well as basilar artery calcification are noted. Is nonspecific diminished attenuation cerebral whit e matter, likely due to chronic small vessel ischemic changes. Bilateral lens replacement surgery. No orbital mass lesion. No subdural or epidural hematoma. No fracture or bone destruction of the cranial vault. Minimal focal mucoperiosteal thickening of left maxillary sinus. The included paranasal sinuses and t he mastoid air cells otherwise are unremarkable. IMPRESSION: Cerebral atherosclerosis and chronic small vessel ischemic changes of cerebral white mat ter No acute intracranial finding Reviewed, dictated and finalized at Location [facility]. Reviewed, dictated and finalized at location A. IMPRESSION: Cerebral atherosclerosis and chronic small vessel ischemic changes of cerebral white matter No acute intracranial finding
[2021-06-26 19:34] VITALS: BP 117/73; PULSE 73; RESP 21; O2SAT 99
--- NOTE | 2021-06-26 19:59 | ED.FALL ---
HPI - Fall General Chief Complaint: Fall Stated Complaint: ground level fall Time Seen by Provider: 06/26/21 19:40 Source: RN notes reviewed History of Present Illness HPI Narrative: Patient presents to emergency department from home via EMS for fall. Patient states that she is chronically on 4 L nasal cannula she states she had her oxygen was walking with her walker to go turn on the front lights for her children to come over she states that after she turned the lights she went to turn around and lost her balance and fell she states that since that time she is had pain in her lower neck as well as in her bilateral shoulders she denies any loss of consciousness and is unsure if she hit her head she denies any other pain she denies any chest pain, shortness of breath abdominal pain or any other symptoms request no pain medication at this time Related Data Home Medications Medication Instructions Recorded Confirmed Bystolic 40 mg PO DAILY 04/02/21 04/24/21 amlodipine 10 mg PO DAILY 04/02/21 04/24/21 anastrozole 1 mg PO DAILY 04/02/21 04/24/21 ascorbic acid (vitamin C) 1,000 mg PO BID 04/02/21 04/24/21 aspirin 81 mg PO DAILY 04/02/21 04/24/21 biotin 10,000 mcg PO DAILY 04/02/21 04/24/21 calcium carbonate-vit D3-min 1 tablet PO BID 04/02/21 04/24/21 cinnamon bark [Cinnamon] 500 mg PO DAILY 04/02/21 04/24/21 citalopram 20 mg PO DAILY 04/02/21 04/24/21 coQ10 (ubiquinol) 200 mg PO DAILY 04/02/21 04/24/21 ferrous sulfate 325 mg PO BID 04/02/21 04/24/21 furosemide 20 mg PO DAILY 04/02/21 04/24/21 garlic 5 mg PO DAILY 04/02/21 04/24/21 ttpxzmpq-kigs-bgzzzg-hyalur ac 2 tablet PO DAILY 04/02/21 04/24/21 icosapent ethyl [Vascepa] 2 g PO BID 04/02/21 04/24/21 levothyroxine 112 mcg PO DAILY 04/02/21 04/24/21 lutein 20 mg PO DAILY 04/02/21 04/24/21 metformin 500 mg PO BID 04/02/21 04/24/21 xslpvvkwwwmh-jlahnnwo-xquulw 1 tablet PO DAILY 04/02/21 04/24/21 rosuvastatin 20 mg PO DAILY 04/02/21 04/24/21 vitamin B complex [B 1 tablet PO DAILY 04/02/21 04/24/21 Complex-Vitamin B12] Trulicity 3 mg SUBCUT WEEKLY 04/24/21 04/24/21 potassium chloride 10 meq PO DAILY 04/24/21 04/24/21 Allergies Allergy/AdvReac Type Severity Reaction Status Date / Time Penicillins Allergy Unknown Unknown Verified 06/25/21 04:47 Sulfa (Sulfonamide Allergy Unknown Unknown Verified 06/25/21 04:47 Antibiotics) Review of Systems Review of Systems: Gen.: Denies fevers or chills Eyes: Denies eye pain or visual change ENT: Denies congestion Respiratory: Denies shortness of breath or cough CV: Denies chest pain or palpitations GI: Denies abdominal pain nausea, emesis Musculoskeletal: See HPI Neuro: Denies numbness, tingling, weakness or focal weakness Skin: Denies rash Except as documented, all other systems reviewed and negative PMFSH Past Medical History Medical History Diabetes mellitus Hypertension Hypothyroid Surgical History Surgical History H/O skin graft Social History Social History Smoking packs per day: 1 Smoking cigarettes per day: 20.0 Smoking status: Former smoker Tobacco type: cigarettes Second hand tobacco smoke exposure: No Smoking end date: 05/06/88 Alcohol intake: never Substance use: never Gender identity (if verbalized by the patient): Female Spiritual care concerns: No Exam Narrative: APPEARANCE: Well appearing, no apparent distress, well-nourished. HEENT: normocephalic atraumtaic. No facial tenderness EYES: PERRL NECK: Supple. No midline tenderness to palpation. Tender palpation bilateral paravertebral C5-7 RESPIRATORY: No respiratory distress. Clear to auscultation bilaterally CARDIOVASCULAR: Regular rate and rhythm without murmurs rubs or gallops. ABDOMINAL: Soft, nontender, nondistended, no rebound or guarding MUSCULOSKELETAl: Moves all extr
[2021-06-26 20:02] LABS: Glucose Point of Care 142 mg/dl (65-105)
[2021-06-26 20:19] VITALS: RESP 21; O2SAT 99
--- NOTE | 2021-06-26 22:10 | PC.NURSE ---
Called pt. son maile to pick her up. states he has to get her o2 tank. will be here in ten.
[2021-06-26 22:15] VITALS: BP 134/77; PULSE 79; RESP 12; O2SAT 97
== END 2021-06-26 22:15 | disposition home or self-care (01) ==
PROVIDERS: Emergency Provider Emergency Medicine; PCP Family Medicine
DX: S16.1XXA Strain of muscle, fascia and tendon at neck level, initial encounter (principal); S40.012A Contusion of left shoulder, initial encounter; S40.011A Contusion of right shoulder, initial encounter; E11.9 Type 2 diabetes mellitus without complications; I10 Essential (primary) hypertension; E03.9 Hypothyroidism, unspecified; Z87.891 Personal history of nicotine dependence; Z99.81 Dependence on supplemental oxygen; Z86.16 Personal history of COVID-19; Z79.82 Long term (current) use of aspirin; Z79.84 Long term (current) use of oral hypoglycemic drugs; Z79.899 Other long term (current) drug therapy; M85.812 Other specified disorders of bone density and structure, left shoulder; M85.811 Other specified disorders of bone density and structure, right shoulder; M48.14 Ankylosing hyperostosis [Forestier], thoracic region; M19.012 Primary osteoarthritis, left shoulder; I67.2 Cerebral atherosclerosis; M47.812 Spondylosis without myelopathy or radiculopathy, cervical region; W18.39XA Other fall on same level, initial encounter
CPT/HCPCS: 70450; 71045; 72125; 73030; 82948; 99284

== ENCOUNTER 2022-05-05 09:24 | Outpatient (CLI) | payer MEDICARE, OTHER, SELFPAY ==
[2022-05-05 10:03] LABS: Hematocrit 31.4 % (37.0-47.0)
[2022-05-05 10:10] LABS: Anion Gap 16 mmol/L (8-16); Blood Urea Nitrogen 18 mg/dL (7-17); Calcium 8.8 mg/dL (8.4-10.2); Carbon Dioxide 20 mmol/L (22-30); Chloride 107 mmol/L (98-107); Estimated Glomerular Filt Rate 53; Glucose 109 mg/dL (65-110); Potassium 4.4 mmol/L (3.4-5.0); Sodium 143 mmol/L (137-145)
== END 2022-05-05 09:25 | disposition home or self-care (01) ==
LOC: ANHSURGERY 09:37
PROVIDERS: Anesthesiology; PCP Internal Medicine; Visit Provider Podiatrist Foot & Ankle Surgery
DX: Z01.818 Encounter for other preprocedural examination (principal); D64.9 Anemia, unspecified; E11.9 Type 2 diabetes mellitus without complications
CPT/HCPCS: 36415; 80048; 85014; 85018

== ENCOUNTER 2022-05-07 00:41 | Day surgery (SDC) | payer MEDICARE, OTHER, SELFPAY ==
[2022-05-04 15:22] VITALS: BMI 27.5
--- NOTE | 2022-05-04 15:35 | PC.NURSE ---
PRE-OP INSTRUCTIONS, PLEASE READ CAREFULLY Report to the Outpatient Waiting Room, entrance under the green pavilion located off [facility], at time _0730_ on date _05/07/22_. OR Time: _0930_. Time changes happen often and if your time is changed the preop area will call you the afternoon before. - You and your visitor will be asked to self-screen and do not enter if you have any COVID symptoms. - Only one visitor and NO children visitors are allowed at this time. - The patient visitor is requested to leave or wait in car when not with patient due to restrictions. - A mask is required within the hospital. Patients may have clear liquids (water, carbonated beverages, clear teas, apple juice) until 3 hours prior to surgery (0630 AM) with a maximum of 20 ounces. - No food from midnight until time of surgery Take the following medications with a SIP of water the morning of surgery: _CITALOPRAM, LEVOTHYROXINE_ Medications to discontinue per physician _ PT STATES STOPPING ELIQUIS 05/03/22_ Medications to discontinue per ANESTHESIA - _MULTIVITAMIN, PRO-BIOTIC & SUPPLEMENTS, Date to take last dose 05/04/22_ Please no make-up, nail lao, hairspray, perfume, deodorant, or body powder the day of surgery. No jewelry (including any body piercings) or valuables the day of surgery, leave them at home. Please take a shower or bath the night before, or the morning of, surgery with an antibacterial soap. Wear comfortable, loose fitting clothing. - Jewelry must be removed prior to entering the operating room. Rings and piercings that are not removed may be cut off. - The hospital will not accept responsibility for valuables. - Please leave all valuables, including medications, at home the day of surgery. If you are going home after surgery, a licensed motorcycle delivery driver must drive you home. - NO public transportation without another adult. - We recommend that an adult stay with you for 24 hours following discharge. - We also recommend that you do not drive, make important decision, drink alcoholic beverages, or take any drugs that were not prescribed by your health care provider for at least 24 hours after your discharge time. Follow any additional instructions given to you from your surgeon. If you or anyone in your household have experienced Covid symptoms in the past week, please notify your surgeon or the nurse liaison at the phone number below for possible testing. Telephone instructions given to ____PT and asked if any additional questions and then verbalized understanding. Patient advised to call surgeon office or pre surgery nurse liaison [phone] if any additional questions.
--- NOTE | 2022-05-06 09:30 | WPDANESEPPF ---
Anes - Initial Pre Proc Eval Procedure: Operation Date: 05/07/22 09:30 Proposed Procedures p Arthroplasty Interphalangeal Joint Left Hallux, Flexor Hallucis Longus Tendon Lengthening Right Hallux - Markell Patrick JR, MD Date/Time: 05/06/22 09:30 Surgeon: Markell Patrick JR, MD Pre Op Diagnosis: chronic ulcer left and right hallux Patient Data Age: 81 Gender: F Height: 1.65 m Weight: 75 kg Allergies Allergy/AdvReac Type Severity Reaction Status Date / Time Penicillins Allergy Severe Hives Verified 05/07/22 07:46 Sulfa (Sulfonamide Allergy Severe Hives Verified 05/07/22 07:46 Antibiotics) Home Medications Medication Instructions Recorded Confirmed Type amlodipine 10 mg tablet 10 mg PO DAILY 04/02/21 05/07/22 History aspirin 81 mg tablet 81 mg PO DAILY 04/02/21 05/07/22 History biotin 10,000 mcg capsule 10,000 mcg PO DAILY 04/02/21 05/07/22 History citalopram 20 mg tablet 20 mg PO DAILY 04/02/21 05/07/22 History coQ10 (ubiquinol) 200 mg capsule 200 mg PO DAILY 04/02/21 05/07/22 History ferrous sulfate 325 mg (65 mg 325 mg PO BID 04/02/21 05/04/22 History iron) tablet garlic 5,000 mcg tablet 5,000 mg PO DAILY 04/02/21 05/04/22 History levothyroxine 112 mcg tablet 112 mcg PO DAILY 04/02/21 05/07/22 History lutein 20 mg tablet 20 mg PO DAILY 04/02/21 05/04/22 History metformin 500 mg tablet 500 mg PO BID 04/02/21 05/04/22 History fwbyrstbwtpm-xwjjqzkq-klxaeh tablet 1 tablet PO DAILY 04/02/21 05/04/22 History rosuvastatin 20 mg tablet 20 mg PO DAILY 04/02/21 05/04/22 History Lactobacillus rhamnosus GG 15 1 cap PO DAILY 05/04/22 05/04/22 History billion cell sprinkle capsule (Culturelle) apixaban 5 mg tablet (Eliquis) 2.5 mg BID 05/04/22 05/04/22 History berberine-herbal comb no.18 capsule 2 cap PO BID 05/04/22 05/07/22 History chlorthalidone 25 mg tablet 12.5 mg QAM 05/04/22 05/07/22 History cholecalciferol (vitamin D3) 50 50 mcg PO QAM 05/04/22 05/07/22 History mcg (2,000 unit) tablet icosapent ethyl 1 gram capsule 2 g PO BID 05/04/22 05/04/22 History (Vascepa) insulin glargine 100 unit/mL 24 unit subcut DAILY 05/04/22 05/04/22 History subcutaneous solution (Lantus U-100 Insulin) lisinopril 5 mg tablet 10 mg PO DAILY 05/04/22 05/04/22 History nateglinide 120 mg tablet 120 mg PO BID 05/04/22 05/04/22 History nebivolol 20 mg tablet 40 mg HS 05/04/22 05/04/22 History turmeric root extract 500 mg tablet 1,000 mg PO DAILY 05/04/22 05/04/22 History Patient hx anesthesia problems: none Family hx anesthesia problems: none Results Review: All pre-operative results and documents have been reviewed as part of the pre-operative evaluation. FORMERLY [facility], [facility] Past Medical History Medical History (Updated 05/07/22 @ 08:21 by Anup Vega DO) Anticoagulant long-term use Breast cancer Diabetes mellitus DVT (deep venous thrombosis) Emphysema/COPD History of pulmonary embolism Hypertension Hypothyroid Surgical History Surgical History H/O skin graft Social History Social History Smoking packs per day: 1 Smoking cigarettes per day: 20.0 Years smoked: 20 Smoking pack-years: 20.00 Smoking status: Former smoker Tobacco type: cigarettes Second hand tobacco smoke exposure: No Smoking end date: 05/06/88 Alcohol intake: never Substance use: never Substance use type: does not use Living arrangements: with family Gender identity (if verbalized by the patient): Female Spiritual care concerns: No Anes - Eval Final PreProcedure Day of Procedure 05/06/22 09:30 Patient weight: obese Heart: regular rate and rhythm Lungs: clear to auscultation Airway: Mallampati scale class II Neurological: alert and oriented Last oral intake: >/= 8 hours ASA classification: III Emergent: no Anesthetic plan: proceed Anesthesia type and monitoring: general GIVS
[2022-05-07] VITALS (7 sets, daily range): BP systolic 128–163; BP diastolic 45–67; PULSE 64–68; RESP 15–16; TEMP 36.3; O2SAT 91–97
--- NOTE | ~2022-05-07 | XR_ITS ---
EXAMINATION: XR surgery orthopedic DATE: 05/07/2022 10:58 INDICATION: Left hallux arthroplasty TECHNIQUE: 4 fluoroscopic images of the right great toe were obtained during procedure performed by Erick Patrick. Radiologist was not present for the imaging or procedure. The amount of fluoroscopy time used during this procedure was 0.2 minutes. COMPARISON: None. FINDINGS: Osteotomy at the head of the first proximal phalanx with expected postoperative gas in the surroundin g soft tissues. Percutaneous pin fixation extending from the tuft of the distal phalanx across the no w slightly widened first interphalangeal joint as well as the first metatarsophalangeal joint with th e tip of the pin at the lateral side of the head of the first metatarsal. Mild osteoarthritis at a fe w of the metatarsophalangeal and interphalangeal joints. No fracture. IMPRESSION: 1. Osteotomy of the head of the left first proximal phalanx with percutaneous pin fixation of the gre at toe. See procedure note for further detail. Reviewed, dictated and finalized at location A. IMPRESSION: 1. Osteotomy of the head of the left first proximal phalanx with percutaneous p in fixation of the great toe. See procedure note for further detail.
--- NOTE | 2022-05-07 07:16 | WPDHPUPDATE1 ---
History and Physical Update Update Date/Time: 05/07/22 07:16 History and Physical has been reviewed, including an updated exam of the patient. There are NO changes in the patient's condition. Risks, benefits, and alternatives have been discussed and questions answered. Patient agrees to proceed with procedure.
[2022-05-07] MEDS: LACTATED RINGERS 1,000 ML 30 ML IV CONT (08:15)
[2022-05-07 08:22] LABS: Glucose Point of Care 138 mg/dl (65-105)
[2022-05-07] MEDS: ceFAZolin 2 GM/D5W 50 ML 2 GM/50 ML BAG IVPB (09:36)
[2022-05-07] MEDS: LIDOCAINE HCL 2% PF INJ 5 ML VIAL 40 ML INFILTRATE (10:09)
--- NOTE | 2022-05-07 11:02 | W.PM.PROC2 ---
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 Arthroplasty of the left hallux interphalangeal joint with k wire stabilization 2. 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 A pneumatic ankle tourniquet was placed about the patient's ankles. Following IV sedation, I performed a proximal first metatarsal Richmond Block bilaterally. Both feet were scrubbed, prepped, and draped in the usual aseptic manner. An Esmarch bandage was then used to examine the patient's feet and pneumatic ankle tourniquet was then inflated one at a time. Surgery began in the following manner. Attention was directed to the left hallux where a 3cm incision was made just proximal to the nail fold extending to the base of the hallux. A transverse tenotomy was created dorsal to the interphalangeal joint, next the head of the proximal phalanx was resected with an sagittal saw blade. I also resected the hypertrophic medial base of the distal phalanx. Next, I drove a K wire from the base of the distal phalanx exiting the hallux and retrograded through the proximal phalanx into the first metatarsal. Fluoroscopy was used to make sure that the digit and implant were both appropriately positioned. I repaired the extensor tendon with 3.0 PDS. I reapproximated the subcutaneous structures with 4.0 Vicryl and the skin with 4-0 Prolene in horizontal mattress suture technique. The distal end of the K wire was bent inferiorly and posteriorly and then cut with a electrical sign wirer, the sharp edge was bent with abutment against itself as to prevent dislodging. Upon completion of the procedure, the incision was dressed with Adaptic, 4 x 4's, Kerlix, and Coban. The pneumatic ankle tourniquet was then deflated and a prompt hyperemic response noted to all digits of the foot. A surgical shoe will be applied post operatively to be used for ambulation. Attention was noted the right hallux that was noted to be contracted in the sagittal plane with the distal hallux noted to be plantarflexed. First, I made a small 15mm incision along the plantar aspect of the right hallux at the interphalangeal joint. All bleeders were cauterized as necessary. Next, I identified the flexor hallucis longus tendon and performed a longitudinal z lengthening. I reapproximated the tenotomized z arms after the tension was relieved and the hallux noted to be in a rectus postion with a single 4.0 Vicryl stitch. Next, 3.0 PDS was utilzed to repair the entire length of the tendon. The wound was flushed with copious amounts of sterile saline. Next, the skin was reapproximated with 4.0 Prolene in simple interrupted suture fashion technique. Upon completion of the procedure, the incision was dressed with Adaptic, 4 x 4's, Kerlix, and Coban. The pneumatic ankle tourniquet was then deflated and a prompt hyperemic response noted to all digits of the foot. A surgical shoe will be applied post operatively to be used for ambulation. The patient did very well with the procedure and the anesthesia. The patient was transferred to the recovery room with vital signs stable and vascular status intact to all toes of the affected foot. Following a period of postoperative monitoring, the patient will be discharged home on the following written and oral postoperative instructions: 1. Keep the dressing clean, dry, and intact. Use a cast protector bag with showers. 2. The patient should use a surgical shoe for ambulation postoperatively. 3. The patient s
[2022-05-07 11:07] LABS: Glucose Point of Care 132 mg/dl (65-105)
--- NOTE | 2022-05-07 12:13 | SUR.PHASEII ---
PATIENT WAKING UP SLOWLY; NOW OPENING EYES WHEN SPOKEN TO, SMILING AND DENYING PAIN; DECLINING TO DRINK WATER. UPDATED. REMAINS ON 2 LITERS OXYGEN. SATS 88% WHEN ON RA.
--- NOTE | 2022-05-07 12:55 | SUR.PHASEII ---
PATIENT ASSISTED TO RECLINER; NOW AWAKE AND ALERT, TALKING MORE, TAKING A SNACK.
--- NOTE | 2022-05-07 13:23 | SUR.PHASEII ---
NEW POST-OP SHOE ORDERED FOR RIGHT FOOT BECAUSE OLD SHOE FROM HOME NOT BIG ENOUGH D/T BULKY DRESSING.
== END 2022-05-07 13:34 | disposition home or self-care (01) ==
PROVIDERS: PCP Internal Medicine; Visit Provider Podiatrist Foot & Ankle Surgery
PROC: (CPT 28160; principal; 2022-05-07 09:30)
DX: E11.621 Type 2 diabetes mellitus with foot ulcer (principal); L97.529 Non-pressure chronic ulcer of other part of left foot with unspecified severity; L97.519 Non-pressure chronic ulcer of other part of right foot with unspecified severity; M20.22 Hallux rigidus, left foot; M20.31 Hallux varus (acquired), right foot; I10 Essential (primary) hypertension; E03.9 Hypothyroidism, unspecified; J43.9 Emphysema, unspecified; Z85.3 Personal history of malignant neoplasm of breast; Z86.718 Personal history of other venous thrombosis and embolism; Z86.711 Personal history of pulmonary embolism; Z87.891 Personal history of nicotine dependence; Z79.82 Long term (current) use of aspirin; Z79.84 Long term (current) use of oral hypoglycemic drugs; Z79.01 Long term (current) use of anticoagulants; Z79.4 Long term (current) use of insulin
CPT/HCPCS: 28160; 28234; 82948; 99199; C1713; J0690; J1100; J2704; J3010; J7120

== ENCOUNTER 2024-12-06 09:45 | Outpatient (RCR) | payer MEDICARE, SELFPAY ==
--- NOTE | 2024-11-20 10:03 | OPREHPOC ---
Outpatient Therapy Plan of Care This is a Multidisciplinary Plan of Care that may contain components documented by all disciplines (PT, OT, and ST.) PT Problem 1 PT Problem #1 Knowledge Deficit PT Goal 1 Goal / Goal Update *independent with HEP Target Visit 10 PT Problem 2 PT Problem #2 Pain PT Goal 1 Goal / Goal Update * pt report pain at worst of 5/10 Target Visit 10 PT Problem 3 PT Problem #3 Impaired Strength PT Goal 1 Goal / Goal Update * pt perform 20 reps of R and L LE and trunk exercises in supine Target Visit 10 PT Goal 2 Goal / Goal Update * 2 minute walking test distance of 250' Target Visit 10
--- NOTE | 2024-11-20 10:03 | PTOPEVAL1 ---
Assessment and note entered by Yasemin Magana, PT Evaluation Information Assessment Status Evaluation ICD-10 Condition Codes (PT) Pain in low back M54.50 Onset September 2024 Subjective Information onset of back pain, without injury or trauma to back on steroid pack now- not feel that they are helping x rays at another facility- pt reports no fractures have not vacuumed or done much activity, since back hurting activity: at home, independent with bathing, dressing and home tasks; Reported Pain Level Pain Score Self Report Additional Pain Score Comments pain range in the past few days: 5-7/10- sharp, hurting pain; L lumbar-sacral increase pain: bend forward, squat down decrease pain: sit, tylenol, biofreeze walking is OK; sleeping is OK is not using heat or ice, instruct on PRN use 10- 15 minutes Assessment PT Clinical Summary Sara has the diagnosis of back pain. She reports acute onset, without injury. Oswestry self rating of 44% limitation in activity. She is not doing much activity since back started hurting. Reports not doing home cleaning and limited mobility. With the evaluation: she has decreased knee extension bilateral, positions hips in ER bilateral, with feet abducted position and L calcaneal eversion; weakness of trunk and hips, with pain over L SIJ with spasms. Pain is increased with standing trunk flexion and supine SLR and bridge. 2 minute walking test distance of 180' with pain increase to 7/10. Skilled PT services are indicated for modalities to decrease pain, therapeutic exercises to increase trunk and hip strength with education for HEP and posture correction. Plan of Care Interventions Electrical Stimulation,Hot Pack/Cold Pack,Manual Therapy,Neuro Re-education,Patient/Caregiver Education,Therapeutic Activities,Therapeutic Exercise,Ultrasound,Other Other Interventions taping PT Services Indicated Yes Treatment Frequency and 1-2 x/wk for 10 visits Duration These treatments will address the objective and functional deficits as defined above. The patient will be advanced safely and appropriately in order for the patient to progress towards his/her prior level of function. Additional exercises will be introduced and as well as a comprehensive home exercise program upon discharge, if needed, ?to ensure carryover of functional gains achieved in the clinic. This treatment plan has been reviewed and agreement upon by the patient.
--- NOTE | 2024-11-23 15:09 | PCPTNOTE ---
Sara Gamino's daughter called this afternoon upset. She asked numerous times if I had noticed anything strange with her mother. Pt entered PT dept 05/01 back pain. Her HEP was reviewed with her that consisted of 3 isometric pain free ex. MHP and e-stim followed to offer pt pain relief. Nothing was strange about the pt. There were no safety issues or medical issues that caused concern. Pt in fact was very pleasant and enjoyable. I informed Ms. Troncoso that I am available M-F for any further questions. Please refer to chart for detailed information. Ms. Troncoso did appear upset, I spent 15 min as she had many questions. I notified PT and Crosstie Inspector of her concerns. Hind sight there was nothing I could have done differently. CHEMO.
--- NOTE | 2024-12-25 10:01 | PCPTNOTE ---
Cancelled appt , Hospitalized. AKS
--- NOTE | 2025-01-01 13:07 | PTOPDC ---
Assessment and note entered by Yasemin Magana, PT Assessment Status Discharge - Pt Not Present ICD-10 Condition Codes (PT) Pain in low back M54.50 Onset September 2024 Subjective Information pt's daughter called on December 25 and canceled remaining appt due to pt in hospital. Assessment PT Clinical Summary Sara has received 4 PT sessions, from November 20 to for low back pain. She then did not attend any further sessions, with her daughter calling on December 25 and canceled therapy due to pt in the hospital. Discharge PT services. The goals were not addressed. Plan of Care PT Services Indicated No
== END 2025-01-01 14:21 | disposition home or self-care (01) ==
LOC: ANHPT 09:45
PROVIDERS: PCP Internal Medicine; Visit Provider Nurse Practitioner
DX: M54.50 Low back pain, unspecified (principal)
CPT/HCPCS: 97014; 97110; 97116; 97161; 97530; G0283